=== PATIENT | female | born 1935 | race Hispanic/Latino ===

== ENCOUNTER 2016-09-20 17:49 | Inpatient (IN) | payer MEDICARE, BC ==
--- NOTE | 2016-09-20 18:31 | ED PDOC ---
Arrival/HPI - General Chief Complaint: Weakness/Neurological Deficit Time Seen by Provider: 09/20/16 18:10 Historian: Patient - History of Present Illness Narrative History of Present Illness (Text): 09/20/16 18:15 A 81 year old female, whose past medical history includes CVA, presents to the emergency department complaining of slurred speech since this morning. Patient notes she has some weakness to her right lower extremity but notes recent surgery to it. Patient also complaints of left elbow pain. She states she almost fell at home and has blurry vision but denies any chest pain, shortness of breath, headache, fever, abdominal pain, or any other complaints at this time. PMD: Dr. Jiménez Time/Duration: Other (12-18 hours) Symptom Onset: Sudden Symptom Course: Unchanged Quality: Other Activities at Onset: Rest Context: Home Past Medical History - Provider Review Nursing Documentation Reviewed: Yes - Infectious Disease Hx of Infectious Diseases: None - Tetanus Immunization Tetanus Immunization: Unknown - Reproductive Menopause: Yes - Cardiac Hx Hypertension: Yes - Pulmonary Hx Chronic Obstructive Pulmonary Disease (COPD): Yes - Neurological HX Cerebrovascular Accident: Yes (L CVA, with R foot drop) Other/Comment: Rt side weakness - HEENT Hx HEENT Disorder: Yes Hx Blind: (right eye visual impairment) - Renal Hx Renal Disorder: No - Endocrine/Metabolic Hx Endocrine Disorders: No - Hematological/Oncological Hx Blood Disorders: Yes Hx Cancer: Yes (right lung ca) Hx Chemotherapy: Yes - Integumentary Hx Dermatological Disorder: No - Musculoskeletal/Rheumatological Hx Falls: Yes - Gastrointestinal Hx Gastrointestinal Disorders: Yes - Genitourinary/Gynecological Hx Reproductive Disorders: No - Psychiatric Hx Psychophysiologic Disorder: Yes Hx Anxiety: Yes Hx Depression: Yes Hx Substance Use: No - Past Surgical History Past Surgical History: Non-Contributing - Surgical History Hx Appendectomy: Yes Hx Cardiac Catheterization: Yes Hx Cholecystectomy: Yes Hx Coronary Stent: Yes (x 4) Hx Joint Replacement: Yes (right knee) Hx Orthopedic Surgery: Yes (left ankle) - Anesthesia Hx Anesthesia: Yes Hx Anesthesia Reactions: No Hx Malignant Hyperthermia: No - Suicidal Assessment Feels Threatened In Home Enviroment: No Family/Social History - Physician Review Nursing Documentation Reviewed: Yes Family/Social History: Unknown Family HX Smoking Status: Never Smoked Hx Alcohol Use: No Hx Substance Use: No Hx Substance Use Treatment: No Allergies/Home Meds Allergies/Adverse Reactions: Allergies No Known Allergies Allergy (Verified 09/20/16 18:02) Home Medications: Home Meds Medication Instructions Recorded Confirmed Tiotropium [Spiriva] 18 mcg IH DAILY 10/30/15 09/20/16 Folic Acid [Folic Acid] 1 mg PO DAILY 09/20/16 09/20/16 Metoprolol Tartrate [Lopressor] 25 mg PO BID 09/20/16 09/20/16 Review of Systems - Physician Review All systems were reviewed & negative as marked: Yes - Review of Systems Constitutional: absent: Fevers Eyes: Vision Changes Respiratory: absent: SOB Cardiovascular: absent: Chest Pain Gastrointestinal: absent: Abdominal Pain, Nausea, Vomiting Musculoskeletal: Other (right lower extremity weakness; left elbow pain) Neurological: Speech Changes Physical Exam Vital Signs Reviewed: Yes Vital Signs Temp Pulse Resp BP Pulse Ox 09/20/16 19:34 98.2 F 60 16 103/64 98 09/20/16 17:54 97.2 F L 66 18 124/74 96 Temperature: Afebrile Blood Pressure: Normal Pulse: Regular Respiratory Rate: Normal Appearance: Positive for: Well-Appearing, Non-Toxic, Comfortable Pain Distress: None Mental Status: Positive for: Alert and Oriented X 3 Finger Stick Blood Glucose: 94 Medical Decision Making ED Course and Treatment: 09/20/16 18:15 Impression: A 81 year old female with slurred speech and blurred vision. Differential Diagnosis include but are not limited to: CVA vs TIA vs electrolyte abnormality. Plan: -- Head CT -- Chest X-ray -- Labs -- Urinalysis -- Reassess and disposition Prior Visits: Notes and results from previous visits were reviewed. The patient last presented to the emergency department on 06/09/16 for evaluation after a mechanical fall. Progress Notes: 09/20/16 19:[address]: Dictated and Authenticated by: Henok Haines MD COMPARISON: CT - HEAD W/O (CODE STROKE) 05/07/2016 12:18:51 PM FINDINGS: Brain: Moderate volume loss is seen in keeping with age. Severe decrease in attenuation of the periventricular white matter likely related to small vessel ischemic change. The brain is otherwise unremarkable. Normal mckeon-white matter differentiation is present, without acute hemorrhage, or mass. Ventricles: Unremarkable. No ventriculomegaly. 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 No acute fracture. Soft tissues: Unremarkable. Sinuses: Unremarkable as visualized. No acute sinusitis. Mastoid air cells: Unremarkable as visualized. No mastoid effusion. IMPRESSION: Age-related marked atrophy and chronic white matter ischemic changes , with no evidence of an acute intracranial abnormality. 09/20/16 20:07 Patient with noted history. Slurred speech and RLE weakness are present on exam. Symptoms are at least 12 hours old and out of the tpa time window; she is therefore not a tpa candidate. CT brain with no acute findings. NIHSS is 3 ; will need further workup and evaluation and treatment. Discussed with Dr. Hudson for admission on his service for acute cva. Patient given aspirin. - Lab Interpretations Lab Results: 09/20/16 18:20 09/20/16 18:20 Lab Results 09/20/16 18:30: Urine Color Yellow, Urine Appearance Clear, Urine pH 6.0, Ur Specific [place] 1.020, Urine Protein Negative, Urine Glucose (UA) Negative, Urine Ketones Negative, Urine Blood Negative, Urine Nitrate Negative, Urine Bilirubin Negative, Urine Urobilinogen 0.2, Ur Leukocyte Esterase Negative 09/20/16 18:20: Sodium 141, Potassium 3.8, Chloride 109 H, Carbon Dioxide 24, Anion Gap 12, BUN 12, Creatinine 0.8, Est GFR ( Amer) > 60, Est GFR (Non- Af Amer) > 60, Random Glucose 90, Calcium 9.1, Magnesium 1.9, Total Bilirubin 0.2, AST 37, ALT 31, Alkaline Phosphatase 122, Lactate Dehydrogenase 462, Total Creatine Kinase 93, Troponin I < 0.01, NT-Pro-B Natriuret Pep 553 H, Total Protein 6.4, Albumin 3.6, Globulin 2.8, Albumin/Globulin Ratio 1.3, Triglycerides 133, Cholesterol 165, LDL Cholesterol Direct 84, HDL Cholesterol 49, Lipase 42 09/20/16 18:20: PT 10.7, INR 0.99, APTT 26.8 09/20/16 18:20: WBC 6.1 D, RBC 3.77, Hgb 11.5 L, Hct 36.2, MCV 96.0, MCH 30.5, MCHC 31.8, RDW 16.6 H, Plt Count 246, MPV 11.0, Gran % 43.2 L, Lymph % (Auto) 38.6 H, [place] % (Auto) 10.8 H, Eos % (Auto) 6.6 H, Baso % (Auto) 0.8, Gran # 2.63 , Lymph # 2.4, [place] # 0.7 H, Eos # 0.4, Baso # 0.05 I have reviewed the lab results: Yes - RAD Interpretation Narrative RAD Interpretations (Text): 09/20/16 20:11 CXR: nad as read by me. Radiology Orders: 09/20/16 18:28 CHEST PORTABLE [RAD] Stat 09/20/16 18:29 HEAD W/O CONTRAST [CT] Stat - EKG Interpretation EKG Interpretation (Text): 09/20/16 20:10 NSR @ 66 with RBBB with OH of 286; no ST/T changes; normal axis; poor R wave progression; no changes Interpreted by ED Physician: Yes Type: 12 lead EKG Comparison: Similar to previous EKG (06/09/16) - Medication Orders Current Medication Orders: Discontinued Medications Aspirin (Aspirin Chewable) 324 mg PO STAT STA Stop: 09/20/16 19:19 NIHSS Scale ([place]) Time Performed: 18:15 - How Severe is the Stoke Baseline Level of Consciousness: 0=Alert LOC to Questions: 0=Both comments correct LOC to commands: 0=Obeys both correctly Best Gaze: 0=Normal Visual: 0=No visual loss Facial: 0=Normal Motor Arm - Left: 0=No drift Motor Arm - Right: 0=No drift Motor Leg - Left: 0=No drift Motor Leg - Right: 2=Falls before 5 sec Limb Ataxia: 0=Absent Sensory: 0=Normal Best Language: 0=No aphasia Dysarthia: 1=Mild to moderate slurring Extinction & Inattention (Neglect): 0=Normal, no object Score: 3 Risk Level: Minor Stroke Risk - Scribe Statement The provider has reviewed the documentation as recorded by the Cindi Giordano Provider Scribe Attestation: All medical record entries made by the Scribe were at my direction and personally dictated by me. I have reviewed the chart and agree that the record accurately reflects my personal performance of the history, physical exam, medical decision making, and the department course for this patient. I have also personally directed, reviewed, and agree with the discharge instructions and disposition. Disposition/Present on Arrival - Present on Arrival Any Indicators Present on Arrival: No History of DVT/PE: No History of Uncontrolled Diabetes: No Urinary Catheter: No History of Decub. Ulcer: No History Surgical Site Infection Following: None - Disposition Have Diagnosis and Disposition been Completed?: Yes Diagnosis: Cerebrovascular accident (CVA) Disposition: HOSPITALIZED Disposition Time: 19:25 Patient Plan: Observation, Telemetry Condition: FAIR
[2016-09-20 18:43] LABS: ADD MANUAL DIFF? NO
[2016-09-20 18:54] LABS: BASO # 0.05 K/mm3 (0.0-2.0); BASO % 0.8 % (0.0-3.0); EOS # 0.4 (0.0-0.7); EOS % 6.6 % (1.5-5.0); GRAN # 2.63 (1.4-6.5); GRAN % 43.2 % (50.0-68.0); HEMATOCRIT 36.2 % (36.0-48.0); LYMPH # 2.4 (1.2-3.4); LYMPH % 38.6 % (22.0-35.0); MEAN CORPUSCULAR HEMOGLOBIN 30.5 pg (25.0-35.0); MEAN CORPUSCULAR HGB CONC 31.8 g/dl (31.0-37.0); MONO # 0.7 (0.1-0.6); MONO % 10.8 % (1.0-6.0); PLATELET COUNT 246 10^3/uL (120.0-450.0); RED CELL DISTRIBUTION WIDTH 16.6 % (11.5-14.5); WHITE BLOOD COUNT 6.1 10^3/ul (4.5-11.0)
[2016-09-20 19:00] LABS: INR 0.99 (0.93-1.08); PARTIAL THROMBOPLASTIN TIME 26.8 Seconds (23.7-30.8)
[2016-09-20 19:02] LABS: ALB/GLOB RATIO 1.3 (1.1-1.8); ALKALINE PHOSPHATASE 122 U/L (38-133); ALT/SGPT 31 U/L (7-56); AST/SGOT 37 U/L (15-39); BILIRUBIN,TOTAL 0.2 mg/dL (0.2-1.3); BLOOD UREA NITROGEN 12 mg/dL (7-21); CALCIUM 9.1 mg/dL (8.4-10.5); CARBON DIOXIDE 24 mmol/L (21-33); CHLORIDE 109 mmol/L (98-107); CHOLESTEROL 165 mg/dL (130-200); GFR AFRICAN-AMERICAN > 60; GLUCOSE,RANDOM 90 mg/dL (70-110); LIPASE 42 U/L (23-300); MAGNESIUM 1.9 mg/dL (1.7-2.2); POTASSIUM 3.8 mmol/L (3.6-5.0); SODIUM 141 mmol/L (132-148); TOTAL PROTEIN 6.4 g/dL (5.8-8.3)
[2016-09-20 19:03] LABS: URINE BILIRUBIN NEGATIVE (NEGATIVE); URINE BLOOD NEGATIVE (NEGATIVE); URINE GLUCOSE (UA) NEGATIVE (NEGATIVE); URINE KETONE NEGATIVE (NEGATIVE); URINE LEUKOCYTE ESTERASE NEGATIVE Leu/uL (NEGATIVE); URINE PROTEIN NEGATIVE mg/dL (<30 mg/dL); URINE UROBILINOGEN 0.2 E.U./dL (<1 E.U./dL)
[2016-09-20 19:09] LABS: URINE APPEARANCE CLEAR (CLEAR); URINE COLOR YELLOW (YELLOW)
[2016-09-20 19:18] LABS: TROPONIN I < 0.01 ng/mL
--- NOTE | 2016-09-21 07:21 | CT ---
PROCEDURE: CT HEAD WITHOUT CONTRAST. HISTORY: slurred speech, blurry vision COMPARISON: None available. TECHNIQUE: Axial computed tomography images were obtained through the head/brain without intravenous contrast. Radiation dose: Total exam DLP = mGy-cm. This CT exam was performed using one or more of the following dose reduction techniques: Automated exposure control, adjustment of the mA and/or kV according to patient size, and/or use of iterative reconstruction technique. FINDINGS: HEMORRHAGE: No intracranial hemorrhage. BRAIN: No mass effect or edema. No atrophy or chronic microvascular ischemic changes. VENTRICLES: Unremarkable. No hydrocephalus. CALVARIUM: Unremarkable. PARANASAL SINUSES: Unremarkable as visualized. No significant inflammatory changes. MASTOID AIR CELLS: Unremarkable as visualized. No inflammatory changes. OTHER FINDINGS: None. IMPRESSION: Normal CT of the Head.
--- NOTE | 2016-09-21 10:27 | RAD ---
HISTORY: weakness COMPARISON: 06/09/2016 FINDINGS: LUNGS: No active pulmonary disease. PLEURA: No significant pleural effusion identified, no pneumothorax apparent. CARDIOVASCULAR: Normal. OSSEOUS STRUCTURES: No significant abnormalities. VISUALIZED UPPER ABDOMEN: Normal. OTHER FINDINGS: Mild aortic tortuosity IMPRESSION: No active disease.
[2016-09-21] MEDS: Tiotropium 18 mcg Cap For Inhalation IH SCH (10:31)
--- NOTE | 2016-09-21 10:55 | CARD ---
APPROVED REPORT EKG Measurement Heart [id number] <Conclusion> Sinus rhythm with 1st degree AV block Right bundle branch block LAD Low voltage lateral precordial leads
--- NOTE | 2016-09-21 15:00 | HP ---
An 81-year-old white female with history of right hip and knee replacement, history of degenerative a rthritis, hypertension, anxiety disorder. The patient admitted through the ER with slurred speech an d right upper extremity weakness. CT was negative. The patient was admitted, placed on Plavix. The patient had a neurological consultation and neuro checks overnight. She will have an MRI in the [facility]. PHYSICAL EXAMINATION: GENERAL: Shows a well-developed, well-nourished white female. There is less slurred speech this [facility]. EXTREMITIES: Her strength in the upper and lower extremities are equal. Babinskis is downgoing bila terally. NECK: There are no carotid bruits noted. HEENT: The patient does have impaired right gaze on examination of the extraocular muscles. There i s no facial asymmetry. VITAL SIGNS: Stable. Blood pressure is 141/70, heart rate is 61, temperature is 98. LABORATORY DATA: Unremarkable. IMPRESSION: An 81-year-old white female presenting with slurred speech and right upper extremity wea kness, right lower extremity weakness. Negative CT, rule out cerebrovascular accident, MRI pending. Physical therapy. Isauro Hudson MD cc: [id number] TT: 09/21/2016 14:59:20 en
[2016-09-21] MEDS ORDERED: Benzocaine/Menthol (Cepacol) Lozenge MT PRN (15:51)
[2016-09-21] MEDS ORDERED: Gadodiamide 287 MG/ML VIAL (20ML) IV ONE (17:33)
--- NOTE | 2016-09-21 20:35 | CON ---
DATE: 09/21/2016 This is an 81-year-old white female with past medical history of stroke and came to the Emergency [facility] with slurred speech and has some right-sided weakness. Also, complaining of left elbow pain. The patient almost fell at home, had blurring of vision, shortness of breath and came to the Emergency Ro om. CAT scan of the head was done, which was reported negative. The patient just had an MRI of the head. PAST MEDICAL HISTORY: As above, has high blood pressure, COPD, history of cerebrovascular accident, left CVA with right foot drop. ALLERGIES: No known drug allergies. HOME MEDICATIONS: Folic acid, Spiriva, Lopressor. REVIEW OF SYSTEMS: A 10-point review of system was negative except as noted above. PHYSICAL EXAMINATION: VITAL SIGNS: Blood pressure 124/74. HEENT: Normocephalic, atraumatic. NECK: Supple. NEUROLOGIC: Awake, oriented to self and place. Cranial nerves II-XII were tested. Pupils reactive. EOM intact. Visual castellanos full. No facial asymmetry. Tongue midline. Motor: Moves all the extr emities spontaneously. Deep tendon reflexes 1+. Both plantars are downgoing. Sensory appears intac t. Cerebellar and gait deferred. IMPRESSION: An 81-year-old female with slurred speech and blurring of vision and residual weakness o f the right side from a previous stroke. CAT scan and MRI done, results pending. LABORATORY DATA: WBC 6.1, hemoglobin 11.5, hematocrit 36.2, platelets 246. Sodium 141, potassium 3. 8, chloride 109, CO2 of 24, glucose 90, BUN 12, creatinine 0.8. Workup is in progress. We will foll ow up. Paul Barrett MD cc: [id number] TT: 09/21/2016 20:34:02 Confirmation # [id number] Dictation # [id number] mn
--- NOTE | 2016-09-22 01:58 | CP.PCM.PN ---
Subjective - Date & Time of Evaluation Date of Evaluation: 09/22/16 Time of Evaluation: 01:44 - Subjective Subjective: Patient was seen at bedside because she complained of burning in the lips for past two hours, began after she ate an orange. Has no other complaints now. No headache, dizziness, weakness, numbness. ROS :Neg except as above. Medical record was reviewed. This 81 year old white woman was admitted with slurred speech and right sided residual weakness from previous stroke, blurred vision. Has PMH of HTN,DJD, anxiety, right knee and hip replacement. Objective - Vital Signs/Intake and Output Vital Signs (last 24 hours): Temp Pulse Resp BP Pulse Ox 97.6 F 67 19 167/78 H 97 09/21/16 12:00 09/21/16 18:29 09/21/16 12:00 09/21/16 18:29 09/21/16 06:00 - Medications Medications: Current Medications Acetaminophen (Tylenol 325mg Tab) 650 mg PO Q4H PRN PRN Reason: Pain, Mild (1-3) Last Admin: 09/21/16 16:27 Dose: 650 mg Atorvastatin Calcium (Lipitor) 10 mg PO DIN [facility] Last Admin: 09/21/16 18:29 Dose: 10 mg Benzocaine/Menthol (Cepacol Sore Throat) 1 diann MT Q2H PRN PRN Reason: Sore Throat Donepezil HCl (Aricept) 5 mg PO HS [facility] Last Admin: 09/21/16 21:44 Dose: 5 mg Famotidine (Pepcid) 20 mg PO DAILY [facility] Last Admin: 09/21/16 10:31 Dose: 20 mg Folic Acid (Folic Acid) 1 mg PO DAILY [facility] Last Admin: 09/21/16 10:31 Dose: 1 mg Metoprolol Tartrate (Lopressor) 25 mg PO BRKDIN [facility] Last Admin: 09/21/16 18:29 Dose: 25 mg Tiotropium [place] (Spiriva) 18 mcg IH DAILY [facility] Last Admin: 09/21/16 10:31 Dose: 18 mcg - Labs Labs: PT 10.7 Seconds (9.9-11.8) 09/20/16 18:20 INR 0.99 (0.93-1.08) 09/20/16 18:20 APTT 26.8 Seconds (23.7-30.8) 09/20/16 18:20 - Constitutional Appears: Well, No Acute Distress - Head Exam Head Exam: ATRAUMATIC, NORMAL INSPECTION, NORMOCEPHALIC Additional comments: Obese person. - Eye Exam Eye Exam: Normal appearance - ENT Exam ENT Exam: Normal External Ear Exam Additional comments: Upper and lower lip examination is normal. No swelling , no redness, no tenderness. - Neck Exam Neck Exam: Normal Inspection - Respiratory Exam Respiratory Exam: NORMAL BREATHING PATTERN - Cardiovascular Exam Cardiovascular Exam: absent: JVD - GI/Abdominal Exam GI & Abdominal Exam: absent: Distended - Rectal Exam Rectal Exam: Deferred - Back Exam Back Exam: NORMAL INSPECTION - Neurological Exam Neurological Exam: Alert, Awake, CN II-XII Intact, Oriented x3 Neuro motor strength exam: Left Upper Extremity: 5, Right Upper Extremity: 5, Left Lower Extremity: 5, Right Lower Extremity: 5 - Psychiatric Exam Psychiatric exam: Normal Affect, Normal Mood - Skin Skin Exam: Normal Color Assessment and Plan - Assessment and Plan (Free Text) Assessment: Burning in lips. TIA. History CVA with right sided weakness. HTN. DJD. Anxiety. Obesity. History right hip and knee replacement. Plan: Benadryl 25 mg PO x 1. Continue present management.
--- NOTE | 2016-09-22 09:30 | MRI ---
PROCEDURE: MRI BRAIN WITH AND WITHOUT CONTRAST HISTORY: Slurred speech COMPARISON: Noncontrast head CT from 09/20/2016 TECHNIQUE: Multiplanar, multisequence MR images of the brain were obtained with and without intravenous contrast enhancement. FINDINGS: HEMORRHAGE: None DWI: No evidence of an acute or early subacute infarction. BRAIN PARENCHYMA: There are severe chronic microangiopathic changes. There is no mass, mass effect or abnormal extra-axial fluid collection. The midline sagittal structures are normal. ENHANCEMENT: No abnormal intracranial enhancement. VENTRICLES: There is mild age-related global parenchymal volume loss and proportionate enlargement of the ventricles and cortical sulci. CRANIUM: There is normal bone marrow signal pattern. ORBITS: Grossly unremarkable. PARANASAL SINUSES/MASTOIDS: Moderate mucosal thickening in the right posterior ethmoid air cell, otherwise predominantly clear. VASCULAR SYSTEM: Normal signal voids in the larger intracranial arteries. OTHER FINDINGS: None . IMPRESSION: No acute intracranial abnormality. Specifically, no evidence of acute infarction.
[2016-09-22] MEDS: Tiotropium 18 mcg Cap For Inhalation IH SCH (10:03)
--- NOTE | 2016-09-22 10:24 | PN ---
DATE: 09/22/2016 An 81-year-old white female admitted to the hospital with slurred speech and right hemiparesis. The patient had a positive MRI with a positive stroke seen on MRI. The patient is doing well. Her slurr ed speech is improved. Her right leg is still somewhat weak. She needs some physical therapy and oc cupational therapy. Has started speech therapy and occupational therapy. She will be transferred to a rehab facility as soon as a bed is available, the patient will continue stroke protocol with a sta tin, Plavix, and blood pressure control. PHYSICAL EXAMINATION NEUROLOGIC: Grossly improved today. The patient does need to work on her balance and strength in he r lower extremities. Her speech is improved. VITAL SIGNS: Stable. PLAN: Proceed to rehab as soon as possible. Isauro Hudson MD cc: [id number] TT: 09/22/2016 10:23:59 Confirmation # [id number] Dictation # [id number] lotus
--- NOTE | 2016-09-22 12:59 | PN ---
DATE: 09/22/2016 SUBJECTIVE: This is an 81-year-old white female with past medical history of hypertension, COPD and left CVA with right foot drop. PHYSICAL EXAMINATION: HEENT: Normocephalic, atraumatic. NECK: Supple. NEUROLOGIC: Cranial nerves II through XII were tested. Pupils reactive. Moves all the extremities equally. Deep tendon reflexes are 1+. Both plantars are downgoing. IMPRESSION: An 81-year-old with slurred speech and residual weakness of the right arm. MRI was negat racheal. PLAN: Continue present management. We will follow up. Paul Barrett MD cc: [id number] TT: 09/22/2016 12:58:31 Confirmation # [id number] Dictation # [id number] lotus
--- NOTE | 2016-09-23 07:15 | PQF CVATIA ---
This form is a permanent part of the medical record Dr. Hudson, Patient admitted with slurred speech and right hemiparesis. Both CT head and MRI brain negative for acute infarction or hemorrhage. Please document if CVA was ruled out as a cause of symptoms, other cause? Clarification of your documentation is requested to better reflect the severity of illness and intensity of treatment of your patient. Indicators present: [] Altered mental status [x] Aphasia/slurred speech [] Dysphagia [] Dysphasia [] Facial droop/numbness [] Gait disturbance [x] Hemiparesis/plegia [] Speech impairment [x] Weakness [] Neuro Consult [] CT/MRI Findings [] Other: [] Location in the medical record that reflects the above clinical findings: [] Treatment Provided: [] PHYSICIAN'S RESPONSE Based on your medical judgment of the clinical indicators outlined above, are you treating this patient for a known or suspected: [x] Acute Cerebrovascular Accident (CVA) Please specify type i.e.; embolic, hemorrhagic, ischemic. Please specify the artery involved if known. [] Transient Ischemic Accident (TIA) [x] Prolonged reversible ischemic neurological disorder [] Other, please indicate: [] [] If unable to determine, please check the box, sign and date. Present On Admission (POA) Indicator: [x] Present at the time of admission [] Not present at the time of admission [] Clinically Undetermined In responding to this query, please exercise your independent professional judgment. The fact that a question is asked does not imply that any particular answer is desired or expected. Thank you for your clarification on this documentation. If you have any questions please call:[ ] * Thank you, [ ]Jeniffer [facility] #[id number] strainer cleaner CRISTA
--- NOTE | 2016-09-23 08:52 | PN ---
DATE: 09/23/2016 An 81-year-old white female admitted to the hospital with slurred speech and right hemiparesis. Foun d to have a CVA on MRI. The patient's slurred speech is improved. Her extremities still are weak, b ut she does have a replaced knee and hip on the right side. The patient is doing physical therapy an d occupational therapy. PHYSICAL EXAMINATION: She is awake, alert and oriented x 3. REVIEW OF SYSTEMS: 12-point review of systems is unremarkable. The patient is scheduled to eventually go to [facility] to finish her rehabilitation. Isauro Hudson MD cc: [id number] TT: 09/23/2016 08:51:54 Confirmation # [id number] Dictation # [id number] mn
[2016-09-23] MEDS: Tiotropium 18 mcg Cap For Inhalation IH SCH (10:07)
--- NOTE | 2016-09-23 12:38 | PN ---
DATE: 09/23/2016 CHIEF COMPLAINT: Follow up for generalized weakness. SUBJECTIVE: The patient is sitting up in bed, in no acute distress. She has a residual right-sided weakness from prior CVA as well as a right footdrop. MRI of the brain showed no acute intracranial a bnormalities. Electrolytes are stabilized. Her blood pressures are well controlled at this point. She is currently on aspirin 81 mg for stroke prevention. She is on Aricept for underlying cognitive impairment. She will be going for physical therapy, likely subacute rehab. 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 SOCIAL HISTORY: No illicit drug use, smoking, or ETOH abuse. CURRENT MEDICATIONS: Reviewed via nurse's reconciliation sheet. ALLERGIES: No known drug allergies. FAMILY HISTORY: Noncontributory. REVIEW OF SYSTEMS: A 14-point review of systems is negative except for the HPI. LABORATORIES: No new labs done today. A1c is 5.6. MRI of the brain was negative for any acute intracranial abnormality. PHYSICAL EXAMINATION: GENERAL: The patient is alert. HEENT: Atraumatic, normocephalic. PERRLA. Extraocular muscles are intact. NECK: Supple, no JVD, no adenopathy noted. LUNGS: Clear to auscultation. No adventitious sounds. HEART: S1, S2, normal rate and rhythm. No murmurs, rubs, or gallops. ABDOMEN: Soft, nontender, nondistended. Bowel sounds are present. EXTREMITIES: No clubbing, no cyanosis. Peripheral pulses 2+ felt bilaterally. NEUROLOGIC: The patient is alert, oriented to person, place, month and year. She has residual dysar thria from prior CVA. MOTOR: Has residual right-sided weakness from prior CVA and a right footdrop. Left side is intact. REFLEXES: DTRs are 1+ throughout and absent at the ankles. SENSORY: Light touch, pinprick, proprioception and vibration intact. COORDINATION: [id number] intact. Toes are downgoing bilaterally. GAIT: Deferred for now. ASSESSMENT AND PLAN: This is an 81-year-old woman with history of chronic obstructive pulmonary dise ase; history of cognitive impairment, on Aricept; history of hypertension, left cerebrovascular accid ent with residual right-sided weakness and has a right footdrop who came in for generalized weakness and questionable worsening weakness of her right side. MRI of the brain showed no acute intracranial abnormalities. At this time, she will benefit from subacute rehab for physical and occupational the rapy and likely had a transient ischemic event and now is back to baseline, and will need physical th erapy and subacute rehab. Continue with aspirin 81 mg for stroke prevention. She is clinically stab le from our standpoint. Thank you. Will sign off. Lance Barrett MD cc: [id number] TT: 09/23/2016 12:37:36 Confirmation # [id number] Dictation # [id number] mn
[2016-09-24 04:37] LABS: URINE BILIRUBIN NEGATIVE (NEGATIVE); URINE BLOOD NEGATIVE (NEGATIVE); URINE GLUCOSE (UA) NEGATIVE (NEGATIVE); URINE KETONE NEGATIVE (NEGATIVE); URINE LEUKOCYTE ESTERASE SMALL Leu/uL (NEGATIVE); URINE PROTEIN NEGATIVE mg/dL (<30 mg/dL); URINE UROBILINOGEN 0.2 E.U./dL (<1 E.U./dL)
[2016-09-24 04:51] LABS: URINE APPEARANCE SL CLOUDY (CLEAR); URINE COLOR YELLOW (YELLOW)
[2016-09-24 04:53] LABS: URINE RBC 0 - 2 /hpf (0-2)
[2016-09-24 04:54] LABS: URINE BACTERIA MANY (NEG)
[2016-09-24 09:05] VITALS: RESP 18
[2016-09-24] MEDS: Enoxaparin 40 mg Syringe SC SCH (10:39)
[2016-09-24] MEDS: Tiotropium 18 mcg Cap For Inhalation IH SCH (10:40)
[2016-09-24] MEDS: oxyCODONE 10 mg Immediate Release Tab PO PRN ×2 (11:10→17:43)
--- NOTE | 2016-09-24 12:39 | RAD ---
PROCEDURE: Radiographs of the Left Shoulder HISTORY: PAIN COMPARISON: No prior. FINDINGS: BONES: Normal. No fracture. JOINTS: Normal. Glenohumeral and acromioclavicular joints preserved. No osteoarthritis. SOFT TISSUES: Normal. OTHER FINDINGS: None. IMPRESSION: Normal radiographs of the left shoulder.
[2016-09-24 18:13] VITALS: TEMP 97.8
--- NOTE | 2016-09-25 00:49 | CP.PCM.PN ---
Subjective - Date & Time of Evaluation Date of Evaluation: 09/24/16 Time of Evaluation: 09:00 - Subjective Subjective: Complaining of left shoulder pain. Slurring of speech. She was admitted with right sided weakness and slurring speech. Not able to ambulate. Objective - Vital Signs/Intake and Output Vital Signs (last 24 hours): Temp Pulse Resp BP Pulse Ox 97.8 F 67 18 127/62 93 L 09/24/16 16:00 09/24/16 17:50 09/24/16 17:50 09/24/16 17:50 09/24/16 18:25 Intake and Output: 09/24/16 09/25/16 18:59 06:59 Output Total 40 Balance -40 - Medications Medications: Current Medications Acetaminophen (Tylenol 325mg Tab) 650 mg PO Q4H PRN PRN Reason: Pain, Mild (1-3) Last Admin: 09/24/16 08:06 Dose: 650 mg Aspirin (Aspirin Chewable) 81 mg PO DAILY [facility] Last Admin: 09/24/16 10:37 Dose: 81 mg Atorvastatin Calcium (Lipitor) 10 mg PO DIN [facility] Last Admin: 09/24/16 17:40 Dose: 10 mg Benzocaine/Menthol (Cepacol Sore Throat) 1 diann MT Q2H PRN PRN Reason: Sore Throat Last Admin: 09/22/16 21:24 Dose: 1 diann Clonidine HCl (Catapres) 0.1 mg PO BID PRN PRN Reason: htn Last Admin: 09/24/16 12:48 Dose: 0.1 mg Docusate Sodium (Colace) 100 mg PO BID [facility] Last Admin: 09/24/16 17:32 Dose: Not Given Donepezil HCl (Aricept) 5 mg PO HS [facility] Last Admin: 09/24/16 21:35 Dose: 5 mg Enoxaparin Sodium (Lovenox) 40 mg SC DAILY [facility] PRN Reason: Protocol Last Admin: 09/24/16 10:39 Dose: 40 mg Famotidine (Pepcid) 20 mg PO DAILY [facility] Last Admin: 09/24/16 10:40 Dose: 20 mg Folic Acid (Folic Acid) 1 mg PO DAILY [facility] Last Admin: 09/24/16 10:39 Dose: 1 mg Metoprolol Tartrate (Lopressor) 25 mg PO BRKDIN [facility] Last Admin: 09/24/16 17:45 Dose: 25 mg Oxycodone HCl (Oxycodone Immediate Release Tab) 10 mg PO Q6H PRN PRN Reason: Pain, moderate (4-7) Last Admin: 09/24/16 17:43 Dose: 10 mg Tiotropium [place] (Spiriva) 18 mcg IH DAILY [facility] Last Admin: 09/24/16 10:40 Dose: 18 mcg - Labs Labs: PT 10.7 Seconds (9.9-11.8) 09/20/16 18:20 INR 0.99 (0.93-1.08) 09/20/16 18:20 APTT 26.8 Seconds (23.7-30.8) 09/20/16 18:20 - Constitutional Appears: Chronically Ill - Head Exam Head Exam: ATRAUMATIC, NORMAL INSPECTION, NORMOCEPHALIC - Eye Exam Eye Exam: absent: Conjunctival injection, EOMI, Normal appearance, Nystagmus, Periorbital swelling, Periorbital tenderness, PERRL, Scleral icterus - ENT Exam ENT Exam: absent: Mucous Membranes Dry, Mucous Membranes Moist, Normal Exam, Normal External Ear Exam, Normal Oropharynx, TM's Normal Bilaterally - Neck Exam Neck Exam: absent: Full ROM, Lymphadenopathy, Meningismus, Normal Inspection, Tenderness, Thyromegaly - Respiratory Exam Respiratory Exam: absent: Accessory Muscle Use, Chest Wall Tenderness, Decreased Breath Sounds, Clear to Ausculation Bilateral, Prolonged Expiratory Phase, Rales, Rhonchi, Wheezes, Respiratory Distress, Stridor, NORMAL BREATHING PATTERN - Cardiovascular Exam Cardiovascular Exam: absent: Bradycardia, Tachycardia, Clicks, Diastolic murmur , Gallop, Irregular Rhythm, REGULAR RHYTHM, JVD, RRR, Rubs, +S1, +S2, +S4, Murmur - GI/Abdominal Exam GI & Abdominal Exam: Soft, Normal Bowel Sounds - Extremities Exam Extremities Exam: Normal Inspection - Neurological Exam Neurological Exam: Oriented x3 - Skin Skin Exam: Intact, Normal Color, Warm Assessment and Plan - Assessment and Plan (Free Text) Assessment: 1. Right CVA. Slurring speech. neuro evaluated. CT head , MRI brain no acute changes. On aspirin, plavix. 2. Anemia : mild anemia. Hb/Hct stable. 3. left shoulder pain. Oxycodone 10 mg Q 6 hr prn. ortho consult for possible steroid injection. 4. Rehab placement. discussed with the skilled nursing case manager, staff nurse.
[2016-09-25] MEDS ORDERED: Bupivacaine 0.5% Inj(30mL) IJ ONE (08:51)
[2016-09-25] MEDS ORDERED: MethylPREDNISolone Depo 40 mg/ml Inj IM ONE (08:51)
[2016-09-25 09:59] VITALS: BP 133/59; O2SAT 100
--- NOTE | 2016-09-25 10:52 | CON ---
DATE: 09/25/2016 This is an 81-year-old female in room 376, bed 1. She was seen for a complaint of shoulder pain that occurred yesterday. Range of motion is satisfacto ry with good abduction, good rotation. X-rays do show mild signs of subacromial impingement and mild osteoarthritis with a spur of the humeral head, and no significant AC joint arthritis. She had been admitted to the hospital on 09/22/2016 and had a lot of x-rays done, and I think with the motion, th e pain in her shoulder could be coming from the sliding back and forth on the bed to the stretcher to the x-ray tables. But today, which is 09/25/2016, she does not have an ounce of pain in the left sh oulder and good range of motion. So I told her with a combination of mild bursitis on x-ray and mild arthritis and the motion that she did for the x-rays that is appears though she inflamed her left sh oulder bursa, as it does not appear to be a rotator cuff tear and the symptoms of the pain subsided w ith rest in bed. She has not had an x-ray for a couple of days. So I feel as though she will do wel l with conservative therapy. will do some mild physical therapy and avoid a cortisone injection toda y, but I will see her tomorrow and see how she feels. FINAL DIAGNOSES: Mild bursitis, resolved, and osteoarthritis which may need followup if the pain con tinues, but right now there is no pain; it has resolved spontaneously. I will follow her in the hosp ital in case she does need a Depo-Medrol and Marcaine shot. Ramu Jj DO cc: [id number] TT: 09/25/2016 10:51:22 Confirmation # [id number] Dictation # [id number] alex
[2016-09-25] MEDS: Tiotropium 18 mcg Cap For Inhalation IH SCH (11:14)
[2016-09-25] MEDS: Enoxaparin 40 mg Syringe SC SCH (11:15)
[2016-09-25 11:16] VITALS: PULSE 16
[2016-09-25] MEDS ORDERED: cefTRIAXone 2 GM IN NS 2 GM/100 ML BAG IVPB SCH (13:15)
--- NOTE | 2016-09-25 16:29 | CP.PCM.PCO ---
Physician Communication Note - Physician Communication Note Physician Communication Note: D/C by Dr. Page on Macrobid, she will f/u [facility] in urine as outpatient.
== END 2016-09-25 16:19 | disposition home health service (06) | DRG 65 ==
LOC: ED 17:49 → ERH 19:29 → 2RNO 22:06 → OBSVTOIN 09-22 09:32 → 3RSO 09-23 17:19
PROVIDERS: ADMIT Internal Medicine; ATTEND Internal Medicine
DX: I63.9 Cerebral infarction, unspecified (principal); I69.351 Hemiplegia and hemiparesis following cerebral infarction affecting right dominant side; J44.9 Chronic obstructive pulmonary disease, unspecified; M21.371 Foot drop, right foot; R47.81 Slurred speech; R29.703 NIHSS score 3; I10 Essential (primary) hypertension; M75.52 Bursitis of left shoulder; D64.9 Anemia, unspecified; F41.9 Anxiety disorder, unspecified; M19.90 Unspecified osteoarthritis, unspecified site; Z96.641 Presence of right artificial hip joint; Z96.651 Presence of right artificial knee joint; E66.9 Obesity, unspecified; Z68.31 Body mass index [BMI] 31.0-31.9, adult

== ENCOUNTER 2017-03-20 00:52 | Inpatient (IN) | payer MEDICARE, BC ==
[2017-03-20 01:01] VITALS: BMI 30.9
--- NOTE | 2017-03-20 01:11 | EDPD ---
HPI Stroke - General Time Seen by Provider: 03/20/17 01:05 Chief Complaint: Weakness/Neurological Deficit Historian: Patient - History of Present Illness Narrative History of Present Illness (Free Text): 03/20/17 01:10 Lacy Hoff is an 81 year old, whose past medical history includes CVA , hypertension, COPD, CAD, and lung cancer, who presents to the Emergency department brought in by EMS for generalized weakness. Patient states she began experiencing head heaviness, heaviness to bilateral upper extremities, and clouded vision while at home prior to arrival. Patient notes she felt fine earlier in the day. Patient denies any dizziness, speech changes, fever, chills , chest pain, shortness of breath, nausea, vomiting, neck pain,or any other complaints. PMD: Dr. Hudson Date:: 03/20/17 Time: 01:10 Onset:: Just prior to presenting Timing: Currently Symptomatic Context: Home Associated Symptoms: Visual Exacerbated by: Nothing Relieved by: Nothing - Location Location: None rTPA Inclusion/Exclusion - Refusal of Treatment Patient Refused Treatment: No - Inclusion Criteria for Altepase Patient is 18 years or Older: Yes The Clinical Diagnosis of Ischemic Stroke That is Causing a Potentially Disabling Neurological Deficit: No Time of Onset is Well Established to be Less Than 270 Minute Before Treatment Would Begin: Yes Risk/Benefit Discussed With Patient/Family Member Present: Yes - Exclusion Criteria for Altepase Uncontrolled Hypertension at Time of Treatment (Systolic BP above 185 or Diastolic BP above 110 mmHg): No Active Internal Bleeding: No Known Bleeding Diathesis Including but Not Limited to: Platelets Below 100,000/ mm,PTT Above 40 sec After Heparin Use, Current Use of Oral Anitcoagulant With INR Greater Than 1.7 or PT Greater Than 15 secs: No Evidence of an Intracranial Hemorrhage: No Evidence of Major Acute Infarct With Signs Greater Than 1/3 MCA Territory: No Suspicion of Subarachnoid Hemorrhage on Pretreatment Evaluation Even if CT Head Negative For Hemorrhage: No - Warning to TPA With Conditions Following Conditions Weighed Against Anticipated Benefit: Yes Condition: Rapid Improvement Past Medical History - Provider Review Nursing Documentation Reviewed: Yes - Infectious Disease Hx of Infectious Diseases: None - Tetanus Immunization Tetanus Immunization: Unknown - Cardiac Hx Cardiac Disorders: Yes - Pulmonary Hx Chronic Obstructive Pulmonary Disease (COPD): Yes - Neurological HX Cerebrovascular Accident: Yes (R sided weakness, many years ago) - HEENT Hx HEENT Disorder: Yes Hx Blind: (right eye visual impairment) - Renal Hx Renal Disorder: No - Endocrine/Metabolic Hx Endocrine Disorders: No - Hematological/Oncological Hx Cancer: Yes (lung, with chemo therapy) - Integumentary Hx Dermatological Disorder: No - Musculoskeletal/Rheumatological Hx Falls: Yes - Gastrointestinal Hx Gastrointestinal Disorders: Yes - Genitourinary/Gynecological Hx Genitourinary Disorders: No - Psychiatric Hx Psychophysiologic Disorder: Yes Hx Anxiety: Yes Hx Depression: Yes Hx Substance Use: No - Past Surgical History Past Surgical History: Non-Contributing - Surgical History Hx Appendectomy: Yes Hx Cardiac Catheterization: Yes Hx Cholecystectomy: Yes Hx Coronary Stent: Yes (x 4) Hx Joint Replacement: Yes (right knee) Hx Orthopedic Surgery: Yes (left ankle) - Anesthesia Hx Anesthesia: Yes Hx Anesthesia Reactions: No Hx Malignant Hyperthermia: No - Suicidal Assessment Feels Threatened In Home Enviroment: No Family/Social History - Family/Social History Family History: Non-Contributory - DrNneka Review Nursing documentation reviewed.: Yes Allergies/Home Meds Allergies/Adverse Reactions: Allergies No Known Allergies Allergy (Verified 03/20/17 01:01) Home Medications: Home Meds Medication Instructions Recorded Confirmed Tiotropium [Spiriva] 18 mcg IH DAILY 10/30/15 03/20/17 Metoprolol Tartrate [Lopressor] 25 mg PO BID 09/20/16 03/20/17 Review of Systems - Physician Review All systems were reviewed & negative as marked: Yes - Review of Systems Constitutional: Other (+generalized weakness). absent: Fevers Eyes: Vision Changes ENT: Normal Respiratory: Normal. absent: SOB, Cough Cardiovascular: Normal. absent: Chest Pain Gastrointestinal: Normal. absent: Abdominal Pain, Diarrhea, Nausea, Vomiting Genitourinary Female: Normal. absent: Dysuria, Frequency, Hematuria, Urine Output Changes Musculoskeletal: Normal. absent: Back Pain, Neck Pain Skin: Normal. absent: Rash Neurological: Other (+bilateral upper extremity heaviness). absent: Speech Changes Endocrine: Normal Hemo/Lymphatic: Normal Psychiatric: Normal ED Stroke Physical Exam Vital Signs Reviewed: Yes Vital Signs Temp Pulse Resp BP Pulse Ox 03/20/17 01:08 97.9 F 116 H 18 151/89 H 97 Temperature: Afebrile Blood Pressure: Normal Pulse: Regular Respiratory Rate: Normal Appearance: Positive for: Well-Appearing, Non-Toxic, Comfortable Pain Distress: None Mental Status: Positive for: Alert and Oriented X 3 - Systems Exam Head: Present: Atraumatic, Normocephalic Pupils: Present: PERRL Extroacular Muscles: Present: EOMI Conjunctiva: Present: Normal Ears: Present: Normal, NORMAL TM, Normal Canal. No: Erythema, TM Bulging, Fluid , TM Perf Mouth: Present: Moist Mucous Membranes Pharnyx: Present: Normal. No: ERYTHEMA, EXUDATE, TONSILS ENLARGED, Peritonsilar Swelling, Uvular Deviation, Muffled/Hoarse Voice, Strider, Soft Palate/Uvular Edema Nose (External): Present: Atraumatic Nose (Internal): Present: Normal Inspection Neck: Present: Normal Range of Motion. No: Meningeal Signs, MIDLINE TENDERNESS , Paraspinal Tenderness Respiratory/Chest: Present: Clear to Auscultation, Good Air Exchange. No: Respiratory Distress, Accessory Muscle Use Cardiovascular: Present: Regular Rate and Rhythm, Normal S1, S2. No: Murmurs Abdomen: Present: Normal Bowel Sounds. No: Tenderness, Distention, Peritoneal Signs Genitourinary/Pelvic Exam: Present: NI. No: C, E Back: Present: Normal Inspection. No: CVA Tenderness, Midline Tenderness, Paraspinal Tenderness Upper Extremity: Present: Normal Inspection, Normal ROM, NORMAL PULSES, Neurovascularly Intact, Capillary Refill < 2s. No: Cyanosis, Edema, Tenderness , Swelling, Erythema, Deformity Lower Extremity: Present: Normal Inspection, NORMAL PULSES, Normal ROM, Neurovascularly Intact, Capillary Refill < 2 s. No: Edema, Tenderness, Swelling , Erythema, Deformity, Temperature Abnormalties Neurologic: Present: GCS=15, CN II-XII Intact, Speech Normal, Motor Func Grossly Intact, Normal Sensory Function, Normal Cerebellar Funct, Memory Normal. No: Pronator Drift Skin: Present: Warm, Dry, Normal Color. No: Rashes Lymphatic: Present: OX3, NI, NC Psychiatric: Present: Alert, Oriented x 3, Normal Insight, Normal Concentration Medical Decision Making ED Course and Treatment: 03/20/17 01:10 Impression: 81 year old female complaining of generalized weakness, head/upper extremity weakness, and clouded vision Differential Diagnosis included but are not limited to: CVA vs. TIA Plan: -- CT Head w/o contrast -- EKG -- CXR -- Labs, troponin, lipid panel, blood type and screen -- Reassess and disposition Prior Visits: Notes and results from previous visits were reviewed. On 09/20/2016, pt was seen in the Emergency department for slurred speech and right lower extremty weakness. Pt was admitted to the hospital for further evaluation. Progress Notes: 03/20/17 01:10 Pt seen on arrival to Emergency department. Code Stroke called. Pt taken CT scan. 03/20/17 01:[address] Linda Gabriel, who is aware and agrees with plan. States pt not a candidate for tPA due to rapid improvement of symptoms. 03/20/17 01:54 Reviewed radiology, CT Head shows: Brain: [id number] atrophy. No intracranial hemorrhage. No mass. Multiple scattered foci of decreased attenuation within periventricular/subcortical white matter. No definite edema. Ventricles: No hydrocephalus. Bones/joints: No acute fracture. Soft tissues: Unremarkable. Vasculature: Atherosclerotic disease of intracranial arteries. Sinuses: Scattered minimal mucosal thickening. Mastoid air cells: No mastoid effusion. Orbits: Unremarkable as visualized. IMPRESSION: 1. Nonspecific white matter changes. Acute infarction may be CT occult within first 24 hours. If a focal deficit persists, consider followup CT or MRI for further evaluation. 2. Incidental/non-acute findings are described above. 03/20/17 02:05 Reviewed EKG, sinus tachycardia at [address]pm[address] RBBB. Non-specific ST/T wave changes. 03/20/17 04:[address] Hudson, who is aware and agrees with plan. Accepts pt in to his service. Pt will go to Telemetry observation for TIA. - Lab Interpretations I have reviewed the lab results: Yes - RAD Interpretation Turnaround Engineer: ED Physician, Radiologist - Scribe Statement The provider has reviewed the documentation as recorded by the Scribe Randa Short All medical record entries made by the Scribe were at my direction and personally dictated by me. I have reviewed the chart and agree that the record accurately reflects my personal performance of the history, physical exam, medical decision making, and the department course for this patient. I have also personally directed, reviewed, and agree with the discharge instructions and disposition. NIHSS Scale ([place]) Time Performed: 01:10 - How Severe is the Stoke Baseline Level of Consciousness: 0=Alert LOC to Questions: 0=Both comments correct LOC to commands: 0=Obeys both correctly Best Gaze: 0=Normal Visual: 0=No visual loss Facial: 0=Normal Motor Arm - Left: 0=No drift Motor Arm - Right: 0=No drift Motor Leg - Left: 0=No drift Motor Leg - Right: 0=No drift Limb Ataxia: 0=Absent Sensory: 0=Normal Best Language: 0=No aphasia Dysarthia: 0=Normal articulation Extinction & Inattention (Neglect): 0=Normal, no object Score: 0 Risk Level: No Stroke Risk Disposition/Present on Arrival - Present on Arrival Any Indicators Present on Arrival: No History of DVT/PE: No History of Uncontrolled Diabetes: No Urinary Catheter: No History of Decub. Ulcer: No History Surgical Site Infection Following: None - Disposition Have Diagnosis and Disposition been Completed?: Yes Diagnosis: TIA (transient ischemic attack) Disposition: HOSPITALIZED Disposition Time: 03:50 Patient Plan: Observation Patient Problems: Current Active Problems Problem Status Onset TIA (transient ischemic attack) Acute Condition: STABLE
--- NOTE | 2017-03-20 01:43 | CT ---
EXAM: CT Head Without Intravenous Contrast CLINICAL HISTORY: 81 years old, female; Signs and symptoms; Other: Code stroke TECHNIQUE: Axial computed tomography images of the head/brain without intravenous contrast. All CT scans at this facility use one or more dose reduction techniques, viz.: automated exposure control; ma/kV adjustment per patient size (including targeted exams where dose is matched to indication; i.e. head); or iterative reconstruction technique. COMPARISON: CT - HEAD W/O CONTRAST 2016-09-20 18:47 FINDINGS: Brain: Sdao-mn-zxicdhjc atrophy. No intracranial hemorrhage. No mass. Multiple scattered foci of decreased attenuation within periventricular/subcortical white matter. No definite edema. Ventricles: No hydrocephalus. Bones/joints: No acute fracture. Soft tissues: Unremarkable. Vasculature: Atherosclerotic disease of intracranial arteries. Sinuses: Scattered minimal mucosal thickening. Mastoid air cells: No mastoid effusion. Orbits: Unremarkable as visualized. IMPRESSION: 1. Nonspecific white matter changes. Acute infarction may be CT occult within first 24 hours. If a focal deficit persists, consider followup CT or MRI for further evaluation. 2. Incidental/non-acute findings are described above.
[2017-03-20 03:20] LABS: BASO # 0.05 K/mm3 (0.0-2.0); BASO % 0.5 % (0.0-3.0); EOS # 0.3 (0.0-0.7); EOS % 3.1 % (1.5-5.0); GRAN # 6.37 (1.4-6.5); GRAN % 68.2 % (50.0-68.0); HEMATOCRIT 36.8 % (36.0-48.0); LYMPH # 1.8 (1.2-3.4); LYMPH % 19.1 % (22.0-35.0); MEAN CELL VOLUME 95.6 fl (80.0-105.0); MEAN CORPUSCULAR HEMOGLOBIN 30.4 pg (25.0-35.0); MEAN CORPUSCULAR HGB CONC 31.8 g/dl (31.0-37.0); MEAN PLATELET VOLUME 11.5 fl (7.0-11.0); MONO # 0.9 (0.1-0.6); MONO % 9.1 % (1.0-6.0); RED CELL DISTRIBUTION WIDTH 14.6 % (11.5-14.5); WHITE BLOOD COUNT 9.3 10^3/ul (4.5-11.0)
[2017-03-20 03:30] LABS: ALB/GLOB RATIO 1.3 (1.1-1.8); ALKALINE PHOSPHATASE 125 U/L (38-126); ALT/SGPT 28 U/L (7-56); AST/SGOT 27 U/L (14-36); BILIRUBIN,TOTAL 0.4 mg/dL (0.2-1.3); BLOOD UREA NITROGEN 17 mg/dL (7-21); CALCIUM 9.8 mg/dL (8.4-10.5); CARBON DIOXIDE 29 mmol/L (21-33); CHLORIDE 107 mmol/L (98-107); CHOLESTEROL 192 mg/dL (130-200); GFR AFRICAN-AMERICAN > 60; GLUCOSE,RANDOM 105 mg/dL (70-110); POTASSIUM 3.8 mmol/L (3.6-5.0); SODIUM 143 mmol/L (132-148); TOTAL PROTEIN 6.7 g/dL (5.8-8.3)
[2017-03-20 03:36] LABS: INR 1.12 (0.93-1.08); PARTIAL THROMBOPLASTIN TIME 28.5 Seconds (25.1-36.5)
[2017-03-20 03:43] LABS: TROPONIN I 0.04 ng/mL
--- NOTE | 2017-03-20 09:36 | RAD ---
HISTORY: weak COMPARISON: Comparison chest 09/20/2016. FINDINGS: LUNGS: Poor inspiration with low lung volumes, crowded bronchovascular markings and mild bibasilar atelectasis left greater than right. There may also be some chronic scarring left lung base and CP angle region. . PLEURA: No significant pleural effusion identified, no pneumothorax apparent. CARDIOVASCULAR: Heart appears mildly enlarged. Aorta is slightly ectatic and uncoiled. OSSEOUS STRUCTURES: Moderate degenerative changes both shoulder girdles. VISUALIZED UPPER ABDOMEN: Normal. OTHER FINDINGS: None. IMPRESSION: Mild bibasilar atelectasis left greater than right. There may also be some mild chronic scarring left lung base and CP angle region
--- NOTE | 2017-03-20 10:43 | CARD ---
APPROVED REPORT EKG Measurement Heart [id number] <Conclusion> Undetermined rhythm Right bundle branch block Cannot rule out Inferior infarct, age undetermined Abnormal ECG
[2017-03-20] MEDS: Tiotropium 18 mcg Cap For Inhalation IH SCH (11:03)
--- NOTE | 2017-03-21 01:08 | HP ---
HISTORY OF PRESENT ILLNESS: A 81-year-old white female with history of severe degenerative arthritis, CVA in the past, history of fractured left leg, history of hip replacement, and history of hypertension. The patient has been in hospital, had been at home in the usual state of health and developed severe weakness in both upper extremities and head. The patient's mental status have changed according to the family. The patient was brought to the ER and was admitted. The patient the following morning has improved. She has no weakness in the upper and lower extremities. She has no facial droop. No facial symmetry, no local focal lateralizing signs. PHYSICAL EXAMINATION: GENERAL; The patient is awake, alert and oriented x3. NEUROLOGIC: Speech is fluent. Cranial nerves II through XII are intact. Strengthening of the lower extremities is equal. Babinski's are down going bilaterally. CHEST: Clear to auscultation. HEART: Reveals sinus rhythm. LABORATORY DATA: Unremarkable. Blood pressure is stable. H and H are within normal limits. Potassium is 2.8. CT of the head was negative. The patient will have an MRI of the brain and neurological evaluation, possible TIA versus exacerbation of cervical arthritis. Isauro Hudson MD cc:
[2017-03-21] MEDS: Tiotropium 18 mcg Cap For Inhalation IH SCH (10:49)
--- NOTE | 2017-03-21 14:23 | MRI ---
PROCEDURE: MRI BRAIN WITHOUT CONTRAST HISTORY: TIA COMPARISON: Comparison made with prior CT scan and MRI of the brain dated 03/20/2017 and 09/21/2016. TECHNIQUE: Multiplanar, multisequence MR images of the brain were obtained without intravenous contrast enhancement. FINDINGS: HEMORRHAGE: No acute parenchymal, subarachnoid or extra-axial hemorrhage. No evidence of hemosiderin deposition identified on gradient echo weighted sequence DWI: No evidence of an acute or early subacute infarction seen on diffusion imaging. . BRAIN PARENCHYMA: Significant diffuse/ confluent chronic white matter ischemic changes are again seen extending peripherally into the deep and subcortical white matter both cerebral hemispheres. There is also extension into white matter tracts of both basal nuclei. Multiple more discrete bilateral chronic appearing lacunar type infarcts seen scattered about the deep and subcortical white matter as well as both basal nuclei. No obvious parenchymal nor extra-axial mass or collection seen on this noncontrast study. Moderate generalized volume loss VENTRICLES: No obstructive hydrocephalus CRANIUM: Unremarkable. ORBITS: Changes of bilateral cataract surgery again noted. PARANASAL SINUSES/MASTOIDS: Minor mucosal thickening seen within the maxillary antrum bilaterally as well as a few ethmoid air cells. VASCULAR SYSTEM: Visualized major vascular flow voids at skull base patent. . OTHER FINDINGS: None. IMPRESSION: No acute intracranial hemorrhage or infarct. The the spell. Significant diffuse/confluent chronic white matter and basal nuclei ischemic changes. Moderate volume loss.
--- NOTE | 2017-03-21 19:27 | PN ---
DATE: SUBJECTIVE: An 81-year-old white female history of CVA in the past, history of degenerative arthritis, and hypertension. The patient was admitted with weakness in the head and upper extremities, which has resolved. CT was negative. Seen in consultation with Dr. Gabriel, from Neurology. CAT scan, MRI, and EEG ordered. The patient is awake and oriented x3. PHYSICAL EXAMINATION: VITAL SIGNS: Stable. CHEST: Clear to auscultation. HEART: Reveal sinus rhythm. LABORATORY DATA: Unremarkable. ASSESSMENT AND PLAN: Possible transient ischemic attack versus in an 81-year-old white female with history of cerebrovascular accident in the past. Isauro Hudson MD
--- NOTE | 2017-03-21 21:17 | CON ---
DATE: NEUROLOGY CONSULTATION REPORT REASON FOR CONSULTATION: Possible TIA. HISTORY OF PRESENT ILLNESS: The patient is an 81-year-old female, who has been asked for evaluation of weakness in her arms. As per the patient's family, she was brought to the Emergency Room for generalized weakness. She experiences heaviness in her head and heaviness in both upper extremities. Apparently, she was having double vision at home and also felt to be a little confused at home and her symptoms lasted until she came into the hospital and then she started getting better. She denies any new focal weakness in arm or leg. She has a history of old cerebrovascular accident with mild right weakness. The patient walks with a walker at home. At the moment, she feels fine. REVIEW OF SYSTEMS: Denies any headache, dizziness, chest pain, shortness of breath, abdominal pain, constipation, diarrhea, dysuria, cough, or sputum production. PAST MEDICAL HISTORY: Includes hypertension, COPD, coronary artery disease, lung cancer, CVA. MEDICATIONS: At home included, clonidine, Spiriva, Macrobid, Lopressor, folic acid, Pepcid, Aricept, Colace, Lipitor, aspirin, and Tylenol. ALLERGIES: NO KNOWN DRUG ALLERGIES. SOCIAL HISTORY: Denies smoking, use of alcohol, or illicit drugs. FAMILY HISTORY: Reviewed and noncontributory to the case. PHYSICAL EXAMINATION GENERAL: The patient is an elderly female lying on the bed, in no acute distress. VITAL SIGNS: Her blood pressure is 172/80, heart rate 66 per minute, breathing at a rate of 16 per minute, and temperature is 97.7 degrees Fahrenheit. HEENT: Head is normocephalic and atraumatic. NECK: Supple. There are no carotid bruits. LUNGS: Clear. CARDIOVASCULAR SYSTEM: S1 and S2 audible. No murmurs. ABDOMEN: Soft and nontender with bowel sounds present. NEUROLOGIC: Mental status. The patient is awake, alert, oriented to time, place, and person. Speech is fluent. Naming and repetition is normal. Memory and cognition are intact. Cranial nerve examination: Pupils are 3 mm bilaterally and reactive to light. Visual castellanos are full. Extraocular movements are intact. There is no facial asymmetry. The palate is upgoing bilaterally and tongue is midline. Motor Examination: Tone is normal. Power in the upper extremities is 5/5, power in the lower extremity right is -5/5, at the left is 5/5. Reflexes are +1 and symmetrical with absent ankle jerk. Plantars are downgoing bilaterally. Cerebellar examination, [id number] shows no dysmetria. Gait is deferred at the moment. The patient usually walks with the help of a walker. LABORATORY DATA: Labs reviewed, shows WBC of 9.3, hemoglobin of 11.7, hematocrit 36.8, and platelet of 261. INR is 1.12. Sodium is 143, potassium 3.8, chloride 107, carbon dioxide content of 29, BUN of 17, creatinine 0.8, and glucose of 105. Cholesterol is 192. LDL is 122. She had CT scan of the head done, which showed nonspecific white matter changes. No acute intracranial pathology. IMPRESSION: 1. Status post weakness in the upper extremities and head heaviness with some questionable confusion. This may have been possible transient ischemic attack. 2. Gait dysfunction. 3. History of old cerebrovascular accident. RECOMMENDATIONS: 1. The patient to have MRI of the brain without contrast. 2. The patient also to have carotid Doppler study. 3. The patient to be restarted on aspirin. 4. The patient to have another electroencephalogram. 5. The patient to have physical therapy for gait imbalance. 6. The patient also be continued on statin. 7. Please continue other treatment and supportive care. Thank you for the opportunity to participate in the care of this patient. Ivana Gabriel MD
[2017-03-22] MEDS: Tiotropium 18 mcg Cap For Inhalation IH SCH (10:14)
--- NOTE | 2017-03-22 10:18 | PN ---
DATE: NEUROLOGY PROGRESS NOTE SUBJECTIVE: The patient is lying on the bed, in no acute distress. Complains of pain on the right side of her chest wall. Denies any weakness in her arms. PHYSICAL EXAMINATION: VITAL SIGNS: Her blood pressure 169/81, heart rate 67 per minute, breathing at the rate of 16 per minute, and temperature is 97.4 degrees Fahrenheit. HEENT: Head is normocephalic and atraumatic. NECK: Supple. There are no carotid bruits. LUNGS: Clear. CARDIOVASCULAR: S1 and S2 audible. No murmurs. ABDOMEN: Soft and nontender. Bowel sounds are present. NEUROLOGY: Mental status: The patient is awake, alert, and oriented to time, place, and person. Speech is fluent. Naming and repetition is normal. Memory and cognition are intact. Cranial nerves examination; pupils are 3 mm bilaterally and reactive to light. Visual castellanos are full. Extraocular movements are intact. There is no facial asymmetry. The palate is upgoing bilaterally and tongue is midline. Motor examination; tone is normal. Power is 5/5 bilaterally in all extremities. Plantars are downgoing bilaterally. Cerebellar examination, [id number] shows no dysmetria. LABORATORY DATA: Reviewed. MRI of the brain, no acute intracranial hemorrhage or infarct. Significant diffuse , chronic white matter, and basal nuclei ischemic changes. Moderate volume loss. IMPRESSION: 1. Status post possible transient ischemic attack. 2. Gait dysfunction. 3. History of cerebrovascular disease. RECOMMENDATIONS: 1. The patient had a carotid Doppler study. Please followup with the results. 2. The patient to have an electroencephalogram. 3. The patient to be continued on aspirin. 4. The patient also to be continued on statin. 5. The patient will have physical therapy for gait and balance. 6. Please continue supportive care and other treatment. Thank you for the opportunity to participate in the care of this patient. Ivana Gabriel MD
--- NOTE | 2017-03-22 13:14 | US ---
PROCEDURE: Bilateral carotid artery duplex ultrasound HISTORY: Carotid stenosis TIA PHYSICIAN(S): Arash Chin MD. TECHNIQUE: Duplex sonography and color-flow Doppler were used to evaluate the carotid bifurcations and limited segments of the vertebral arteries bilaterally. FINDINGS: There is mild to moderate diffuse smooth heterogeneous plaque noted at the carotid bifurcations bilaterally. The peak systolic velocity in the proximal right internal carotid artery is 94 cm/sec. This corresponds to a 20 to 39% proximal right ICA stenosis. Normal systolic velocities are noted in the proximal right external carotid artery. There is antegrade flow in the right vertebral artery. The peak systolic velocity in the proximal left internal carotid artery is 100 cm/sec. This corresponds to a 20 to 39% proximal left ICA stenosis. Normal systolic velocities are noted in the proximal left external carotid artery. There is antegrade flow in the left vertebral artery. IMPRESSION: 1. Bilateral 20-39% proximal ICA stenoses. 2. Antegrade flow in both vertebral arteries.
--- NOTE | 2017-03-22 14:58 | PN ---
DATE: SUBJECTIVE: An 81-year-old white female admitted to hospital with TIA. OBJECTIVE: MRI shows scattered small vessel disease with volume loss. CT was negative. The patient is having carotid Doppler done and results are pending. ASSESSMENT AND PLAN: Seen in consultation Neurology. The patient is doing physical therapy and occupational therapy. Also has diffuse degenerative arthritis. The patient will finish her therapy and most likely be discharged home with outpatient Physical Therapy. Isauro Hudson MD
--- NOTE | 2017-03-22 17:13 | US ---
HISTORY: RUQ.Pain COMPARISON: 10/31/2015 TECHNIQUE: Sonographic evaluation of the abdomen. FINDINGS: LIVER: Measures 14.0 cm. Patent portal vein. Portal venous flow: Hepatopetal. Unremarkeable echogenicity of the liver parenchyma. No mass. No intrahepatic bile duct dilatation. GALLBLADDER: Status post cholecystectomy. No abnormality is seen in the gallbladder fossa. COMMON BILE DUCT: Measures 13.2 mm. Post cholecystectomy dilatation similar to that identified on the prior abdominal ultrasound. PANCREAS: Unremarkable as visualized. No mass. No ductal dilatation. RIGHT KIDNEY: Measures 3.7 x 9.6cm. Normal echogenicity. No calculus, mass, or hydronephrosis. LEFT KIDNEY: Measures 5.8 x 10.2cm. There is a component of renal cortical atrophy perhaps medical renal disease.Incidental finding(s): Simple cyst 1.6 cm SPLEEN: Normal in size and contour. No mass. AORTA: No aneurysmal dilatation. IVC: Unremarkable. OTHER FINDINGS: None. IMPRESSION: No acute findings related to/accounting for the clinical presentation. No significant interval change compared to the prior examination(s). Additional benign and/or incidental findings described above.
[2017-03-23 00:03] VITALS: O2SAT 97
[2017-03-23 05:56] VITALS: RESP 18
[2017-03-23] MEDS: Tiotropium 18 mcg Cap For Inhalation IH SCH (10:07)
[2017-03-23] MEDS ORDERED: Influenza Vaccine 60 mcg/0.5 mL SYR (4YR UP) IM ONE (12:30)
[2017-03-23 12:34] VITALS: BP 151/78; PULSE 65; TEMP 98.6
--- NOTE | 2017-03-23 13:47 | PN ---
DATE: SUBJECTIVE: An 81-year-old white female who is admitted with TIA, status post MRI showing microvascular change without any acute changes. Weakness, the patient has regained her strength in the upper extremities and her head. OBJECTIVE: Vital signs are stable. Ultrasound of the abdomen was negative. There is no further abdominal pain. Urinalysis is pending. ASSESSMENT AND PLAN: The patient most likely discharge home today. Physical examination is unchanged. Neurologically, the patient is back to baseline. Isauro Hudson MD
--- NOTE | 2017-03-24 04:39 | DS ---
SUMMARY: The patient is an 81-year-old white female admitted to the hospital with upper arm weakness and generalized fatigue, felt to have possible TIA, who was seen in consultation with Dr. Ivana Gabriel. The patient had a CT of the head and MRI of the brain and a carotid Doppler done. MRI showed high level of small vessel infarcts bilaterally. The carotid Doppler revealed bilateral 20-39% proximal ICA stenosis; otherwise unremarkable. She did have ultrasound of the abdomen because of right upper quadrant pain which was negative. As stated, the brain MRI showed age-related volume loss and there is no acute intracranial hemorrhage or infarct. Diffuse confluent chronic white matter *------* ischemic changes and moderate volume loss. The patient did physical therapy and occupational therapy and was eventually able to be discharged home in improved condition. FINAL DISCHARGE DIAGNOSES: Transient ischemic attack, small vessel ischemic disease, degenerative arthritis, hypertension, and hyperlipidemia. She continues on Aricept for dementia, Klonopin, aspirin, folic acid, and Lipitor. The patient will be followed as an outpatient. Isauro Hudson MD
--- NOTE | 2017-03-24 11:11 | EEG ---
DATE: ELECTROENCEPHALOGRAM REPORT EEG done on 03/22/2017. INTRODUCTION: This is a digitally recorded EEG monitoring using standard EEG montages. BACKGROUND RHYTHM: The EEG shows a background activity of 8-9 Hz alpha activity in parietooccipital region. The EEG activity is bilaterally symmetrical and synchronous. There is attenuation of the background activity on eye opening. Drowsiness was noted by slowing of the background activity. ABNORMAL POTENTIALS: No spike, sharp waves, or focal slowing was seen. PHOTIC STIMULATION AND HYPERVENTILATION: Photic stimulation did not reveal any abnormality. Hyperventilation was not performed. IMPRESSION: Normal electroencephalogram. No epileptiform activity is seen in this electroencephalogram recording. Ivana Gabriel MD
== END 2017-03-23 14:25 | disposition home or self-care (01) | DRG 69 ==
LOC: ED 00:52 → ERH 03:50 → 3RSO 05:53 → OBSVTOIN 03-22 15:58
PROVIDERS: ADMIT Internal Medicine; ATTEND Internal Medicine
DX: G45.9 Transient cerebral ischemic attack, unspecified (principal); J44.9 Chronic obstructive pulmonary disease, unspecified; F03.90 Unspecified dementia, unspecified severity, without behavioral disturbance, psychotic disturbance, mood disturbance, and anxiety; I25.10 Atherosclerotic heart disease of native coronary artery without angina pectoris; I65.23 Occlusion and stenosis of bilateral carotid arteries; E78.5 Hyperlipidemia, unspecified; I10 Essential (primary) hypertension; I45.10 Unspecified right bundle-branch block; R53.1 Weakness; R26.9 Unspecified abnormalities of gait and mobility; M19.90 Unspecified osteoarthritis, unspecified site; H54.61 Unqualified visual loss, right eye, normal vision left eye; Z85.118 Personal history of other malignant neoplasm of bronchus and lung; Z86.73 Personal history of transient ischemic attack (TIA), and cerebral infarction without residual deficits; Z95.5 Presence of coronary angioplasty implant and graft; Z96.649 Presence of unspecified artificial hip joint

== ENCOUNTER 2017-06-16 18:52 | Inpatient (IN) | payer MEDICARE, BC ==
--- NOTE | 2017-06-16 19:29 | ED PDOC ---
Arrival/HPI - General Chief Complaint: Trauma Time Seen by Provider: 06/16/17 19:04 Historian: Patient - History of Present Illness Narrative History of Present Illness (Text): 06/16/17 19:23 A 82 year old female, whose past medical history includes hypertension, hyperlipidemia, COPD, TIA and chronic left shoulder pain radiating to neck, presents to the emergency department complaining of generalized weakness. Patient reports she was having dinner when she felt weak which caused her to slide of her chair. Patient notes she was having a headache and neck pain today. Patient took Ibuprofen, with no relief. Patient notes a cough but denies any injuries, loss of consciousness, head trauma, fever, chills, nausea, vomiting, diarrhea, abdominal pain, urinary symptoms, chest pain, shortness of breath, weakness, numbness or any other complaints. PMD: Dr. Hudson Time/Duration: Prior to Arrival Symptom Course: Unchanged Context: Home Past Medical History - Provider Review Nursing Documentation Reviewed: Yes - Infectious Disease Hx of Infectious Diseases: None - Tetanus Immunization Tetanus Immunization: Unknown - Cardiac Hx Cardiac Disorders: Yes Hx Angina: Yes Hx Hypertension: Yes Hx Peripheral Edema: Yes - Pulmonary Hx Respiratory Disorders: Yes Hx Chronic Obstructive Pulmonary Disease (COPD): Yes - Neurological Hx Neurological Disorder: Yes HX Cerebrovascular Accident: Yes (R sided weakness, many years ago) Hx Dementia: Yes Hx Migraine: Yes - HEENT Hx HEENT Disorder: Yes Hx Blind: Yes (right eye visual impairment) Other/Comment: retinal detachment - Renal Hx Renal Disorder: No - Endocrine/Metabolic Hx Endocrine Disorders: Yes Hx Diabetes Mellitus Type 2: Yes - Hematological/Oncological Hx Blood Disorders: Yes Hx Cancer: Yes (lung, with chemo therapy) - Integumentary Hx Dermatological Disorder: No - Musculoskeletal/Rheumatological Hx Musculoskeletal Disorders: Yes Hx Falls: Yes - Gastrointestinal Hx Gastrointestinal Disorders: Yes Hx Gall Bladder Disease: Yes Hx Gastroesophageal Reflux: Yes - Genitourinary/Gynecological Hx Genitourinary Disorders: No - Psychiatric Hx Psychophysiologic Disorder: Yes Hx Anxiety: Yes Hx Depression: Yes Hx Substance Use: No - Past Surgical History Past Surgical History: Non-Contributing - Surgical History Hx Appendectomy: Yes Hx Cardiac Catheterization: Yes Hx Cholecystectomy: Yes Hx Coronary Stent: Yes (x 4) Hx Joint Replacement: Yes (right knee) Hx Orthopedic Surgery: Yes (left ankle) - Anesthesia Hx Anesthesia: Yes Hx Anesthesia Reactions: No Hx Malignant Hyperthermia: No - Suicidal Assessment Feels Threatened In Home Enviroment: No Family/Social History - Physician Review Nursing Documentation Reviewed: Yes Family/Social History: No Known Family HX Smoking Status: Smoker Currrent Status Unknown Hx Alcohol Use: No Hx Substance Use: No Hx Substance Use Treatment: No Allergies/Home Meds Allergies/Adverse Reactions: Allergies No Known Allergies Allergy (Verified 03/20/17 01:01) Review of Systems - Physician Review All systems were reviewed & negative as marked: Yes - Review of Systems Constitutional: Other (generalized weakness). absent: Fevers, Night Sweats Respiratory: absent: SOB Cardiovascular: absent: Chest Pain Gastrointestinal: absent: Abdominal Pain, Diarrhea, Nausea, Vomiting Genitourinary Female: absent: Dysuria, Frequency, Hematuria, Urine Output Changes Musculoskeletal: Neck Pain Neurological: Headache. absent: Focal Weakness Physical Exam Vital Signs Reviewed: Yes Vital Signs Temp Pulse Resp BP Pulse Ox 06/16/17 23:08 60 19 126/62 98 06/16/17 21:03 97.8 F 61 18 148/95 H 98 06/16/17 19:05 97.4 F L 62 19 143/66 98 Temperature: Afebrile Blood Pressure: Normal Pulse: Regular Respiratory Rate: Normal Appearance: Positive for: Well-Appearing, Non-Toxic, Comfortable Pain Distress: None Mental Status: Positive for: Alert and Oriented X 3 - Systems Exam Head: Present: Atraumatic, Normocephalic Pupils: Present: PERRL Extroacular Muscles: Present: EOMI Conjunctiva: Present: Normal Mouth: Present: Moist Mucous Membranes Neck: Present: Normal Range of Motion, Other (left sided neck tenderness to palpation). No: MIDLINE TENDERNESS Respiratory/Chest: Present: Clear to Auscultation, Good Air Exchange. No: Respiratory Distress, Accessory Muscle Use Cardiovascular: Present: Regular Rate and Rhythm, Normal S1, S2. No: Murmurs Abdomen: Present: Normal Bowel Sounds. No: Tenderness, Distention, Peritoneal Signs Back: Present: Normal Inspection Upper Extremity: Present: Normal Inspection. No: Cyanosis, Edema Lower Extremity: Present: Normal Inspection. No: Edema Neurological: Present: GCS=15, CN II-XII Intact, Speech Normal, Motor Func Grossly Intact, Normal Sensory Function, Normal Cerebellar Funct, Norm Deep Tendon Reflexes, Memory Normal Skin: Present: Warm, Dry, Normal Color. No: Rashes Psychiatric: Present: Alert, Oriented x 3, Normal Insight, Normal Concentration Medical Decision Making ED Course and Treatment: 06/16/17 19:23 Impression: A 82 year old female with generalized weakness. Patient notes headache and neck pain. Differential Diagnosis included but are not limited to: Weakness r/o Infection ; Neck/Headache pain r/o acute on chronic pains r/o herniation Plan: -- Head CT -- Cervical CT -- Chest xray -- EKG -- Labs -- Blood and urine culture -- Urinalysis -- Reassess and disposition Progress Notes: EKG shows sinus bradycardia at 58 BPM with 1st degree AV block, incomplete RBBB. Interpreted by me. Report Date : 06/16/2017 21:12:00 EXAM: CT Head Without Intravenous Contrast Dictator : Mack Kramer MD IMPRESSION: 1. No acute intracranial hemorrhage or acute territorial type infarct. 2. There is a stable hypodense chronic lacunar infarct within the left basal ganglia. 3. There is extensive cerebral white matter hypodensity, likely representing small vessel ischemic disease in a patient this age. 4. Moderate atrophy. 5. Paranasal sinus disease is noted above. Report Date : 06/16/2017 21:20:00 EXAM: CT Cervical Spine Without Intravenous Contrast Dictator : Mack Kramer MD IMPRESSION: 1. No acute cervical spine fracture. 2. The cervical lordosis is straightened. There is mild retrolisthesis of C5 on C6. 3. Spondylosis is visualized at multiple cervical levels. 4. Posterior disc herniation/protrusions are visualized from C2-3 through C4-5 with mild narrowing of the thecal sac. There is mild/moderate narrowing of the thecal sac at C5-6, with mild narrowing of the thecal sac at C6-7. These findings can be further evaluated with MRI. 5. Within the left upper lobe of the lung on series 2 image 86, there is a 4-5 mm nodule. A nonemergent chest CT is recommended. 06/16/17 23:14 CXR negative for PNA. UA positive for UTI. WBC nl in CBC. BUN elevated. Creatinine nl. No fever. Levaquin IV ordered. Patient too weak to stand. She stands her pain was improved but she doesn't feel well. Discussed case with FIFI Lindsey who works with Dr. Hudson who agrees to place patient on observation. - Lab Interpretations Lab Results: 06/16/17 19:29 06/16/17 19:29 Lab Results 06/16/17 21:01: Urine Color Yellow, Urine Appearance Sl cloudy, Urine pH 6.5, Ur Specific Addison 1.015, Urine Protein Negative, Urine Glucose (UA) Negative, Urine Ketones Negative, Urine Blood Negative, Urine Nitrate Negative, Urine Bilirubin Negative, Urine Urobilinogen 0.2, Ur Leukocyte Esterase Small H, Urine RBC Negative, Urine WBC 10 - 15, Ur Epithelial Cells 4 - 5, Urine Bacteria Few 06/16/17 19:52: POC Glucose (mg/dL) 102 06/16/17 19:29: Blood Type A POSITIVE, Antibody Screen Negative, BBK History Checked Patient has bt 06/16/17 19:29: Sodium 144, Potassium 4.1, Chloride 105, Carbon Dioxide 29, Anion Gap 14, BUN 29 H, Creatinine 1.0, Est GFR ( Amer) > 60, Est GFR ( Non-Af Amer) 53, Random Glucose 88, Calcium 9.7, Total Bilirubin 0.5, AST 39 H D , ALT 32, Alkaline Phosphatase 118, Troponin I < 0.01 D, Total Protein 7.5, Albumin 4.2, Globulin 3.3, Albumin/Globulin Ratio 1.3, Triglycerides 135, Cholesterol 227 H, LDL Cholesterol Direct 136 H, HDL Cholesterol 50 06/16/17 19:29: PT 11.2, INR 0.98, APTT 28.5 06/16/17 19:29: WBC 9.3, RBC 3.99, Hgb 12.1, Hct 38.7, MCV 97.0, MCH 30.3, MCHC 31.3, RDW 16.2 H, Plt Count 259, MPV 11.4 H, Gran % 63.6, Lymph % (Auto) 23.1, Tyrrell % (Auto) 7.1 H, Eos % (Auto) 5.7 H, Baso % (Auto) 0.5, Gran # 5.93, Lymph # (Auto) 2.2, Tyrrell # (Auto) 0.7 H, Eos # (Auto) 0.5, Baso # (Auto) 0.05 - RAD Interpretation Radiology Orders: 06/16/17 19:21 CHEST PORTABLE [RAD] Stat 06/16/17 19:23 HEAD W/O CONTRAST [CT] Stat 06/16/17 19:24 CERVICAL SPINE W/O CONTRAST [CT] Stat - Medication Orders Current Medication Orders: Sodium Chloride (Sodium Chloride 0.9%) 1,000 mls @ 100 mls/hr IV .Q10H REE Last Admin: 06/16/17 23:08 Dose: 100 mls/hr eMAR Start Stop Document 06/16/17 23:08 APURVA (Rec: 06/16/17 23:08 APURVA [email or web address]) Intravenous Solution Start Date 06/16/17 Start Time 23:08 Discontinued Medications Cyclobenzaprine HCl (Flexeril) 5 mg PO STAT STA Stop: 06/16/17 21:09 Last Admin: 06/16/17 21:19 Dose: 5 mg Guaifenesin (Robitussin) 200 mg PO STAT STA Stop: 06/16/17 21:53 Last Admin: 06/16/17 22:21 Dose: 200 mg Ketorolac Tromethamine (Toradol) 15 mg IVP STAT STA Stop: 06/16/17 21:17 Last Admin: 06/16/17 21:25 Dose: 15 mg MAR Pain Assessment Document 06/16/17 21:25 LA (Rec: 06/16/17 21:26 APURVA ALONZO-PC) Pain Reassessment Is this a pain reassessment? No Sleep Is patient sleeping during reassessment? No Presence of Pain Presence of Pain Yes Pain Scale Used Pain Scale Used Numeric IVP Administration Document 06/16/17 21:25 LA (Rec: 06/16/17 21:26 APURVA ALONZO-PC) Charges for Administration # of IVP Administrations 1 Metoclopramide HCl (Reglan) 10 mg IVP STAT STA Stop: 06/16/17 21:09 Last Admin: 06/16/17 21:19 Dose: 10 mg IVP Administration Document 06/16/17 21:19 LA (Rec: 06/16/17 21:19 APURVA [id number]) Charges for Administration # of IVP Administrations 1 - Scribe Statement The provider has reviewed the documentation as recorded by the Scribwili Gilliam Provider Scribe Attestation: All medical record entries made by the Scribe were at my direction and personally dictated by me. I have reviewed the chart and agree that the record accurately reflects my personal performance of the history, physical exam, medical decision making, and the department course for this patient. I have also personally directed, reviewed, and agree with the discharge instructions and disposition. Disposition/Present on Arrival - Present on Arrival Any Indicators Present on Arrival: No History of DVT/PE: No History of Uncontrolled Diabetes: No Urinary Catheter: No History of Decub. Ulcer: No History Surgical Site Infection Following: None - Disposition Have Diagnosis and Disposition been Completed?: Yes Diagnosis: Urinary tract infection, Weakness Disposition: HOSPITALIZED Disposition Time: 23:17 Patient Plan: Observation Condition: FAIR Discharge Instructions (ExitCare): Weakness (ED) Referrals: Caren Hargrove, [Primary Care Provider] - Follow up with primary Forms: [employer] (Somali)
[2017-06-16 19:58] LABS: BASO # 0.05 K/mm3 (0.0-2.0); BASO % 0.5 % (0.0-3.0); EOS # 0.5 (0.0-0.7); EOS % 5.7 % (1.5-5.0); GRAN # 5.93 (1.4-6.5); GRAN % 63.6 % (50.0-68.0); HEMOGLOBIN 12.1 g/dL (12.0-16.0); LYMPH # 2.2 (1.2-3.4); LYMPH % 23.1 % (22.0-35.0); MEAN CORPUSCULAR HEMOGLOBIN 30.3 pg (25.0-35.0); MEAN CORPUSCULAR HGB CONC 31.3 g/dl (31.0-37.0); MEAN PLATELET VOLUME 11.4 fl (7.0-11.0); MONO # 0.7 (0.1-0.6); MONO % 7.1 % (1.0-6.0); RBC 3.99 10^6/uL (3.5-6.1); RED CELL DISTRIBUTION WIDTH 16.2 % (11.5-14.5); WHITE BLOOD COUNT 9.3 10^3/ul (4.5-11.0)
[2017-06-16 20:10] LABS: ALB/GLOB RATIO 1.3 (1.1-1.8); ALBUMIN 4.2 g/dL (3.0-4.8); ALT/SGPT 32 U/L (7-56); AST/SGOT 39 U/L (14-36); BLOOD UREA NITROGEN 29 mg/dL (7-21); CALCIUM 9.7 mg/dL (8.4-10.5); GFR AFRICAN-AMERICAN > 60; GFR NON-AFRICAN AMERICAN 53; HDL CHOLESTEROL 50 mg/dL (29-60)
[2017-06-16 20:15] LABS: INR 0.98 (0.93-1.08); PARTIAL THROMBOPLASTIN TIME 28.5 Seconds (25.1-36.5); PROTHROMBIN TIME 11.2 SECONDS (9.4-12.5)
[2017-06-16 20:20] LABS: LDL CHOLESTEROL 136 mg/dL (0-129); TROPONIN I < 0.01 ng/mL
--- NOTE | 2017-06-16 21:13 | CT ---
EXAM: CT Head Without Intravenous Contrast EXAM DATE/TIME: 06/16/2017 7:23 PM CLINICAL HISTORY: The patient age is 82 years old and is female; Pain; Headache; Headache not specified Facility exam id and description: Ct heads head w/o contrast TECHNIQUE: Axial computed tomography images of the head/brain without intravenous contrast. All CT scans at this facility use one or more dose reduction techniques, viz.: automated exposure control; ma/kV adjustment per patient size (including targeted exams where dose is matched to indication; i.e. head); or iterative reconstruction technique. Coronal and sagittal reformatted images were created and reviewed. COMPARISON: CT - HEAD W/O (CODE STROKE) 2017-03-20 01:21 FINDINGS: Brain: There is a stable hypodense chronic lacunar infarct within the left basal ganglia. There is extensive cerebral white matter hypodensity, likely representing small vessel ischemic disease in a patient this age. The acuity of the white matter disease is indeterminate. The white-mckeon differentiation is preserved demonstrating no acute territorial type infarct. There is moderate prominence of the ventricles and sulci, compatible with atrophy. No acute intracranial hemorrhage is seen. Midline shift: There is no midline shift. Ventricles: See above. Bones/joints: The calvarium demonstrates no evidence for a depressed fracture. Soft tissues: No acute abnormality. Vasculature: There is atherosclerotic calcification of the intracranial internal carotid arteries and distal vertebral arteries. Sinuses: There is mild mucosal thickening of a few anterior ethmoid air cells. Mastoid air cells: No mastoid effusion. Orbits: Bilateral lens implants are visualized. IMPRESSION: 1. No acute intracranial hemorrhage or acute territorial type infarct. 2. There is a stable hypodense chronic lacunar infarct within the left basal ganglia. 3. There is extensive cerebral white matter hypodensity, likely representing small vessel ischemic disease in a patient this age. 4. Moderate atrophy. 5. Paranasal sinus disease is noted above.
[2017-06-16 21:18] LABS: PH,URINE 6.5 (4.7-8.0); URINE BILIRUBIN NEGATIVE (NEGATIVE); URINE BLOOD NEGATIVE (NEGATIVE); URINE GLUCOSE (UA) NEGATIVE (NEGATIVE); URINE LEUKOCYTE ESTERASE SMALL Leu/uL (NEGATIVE); URINE PROTEIN NEGATIVE mg/dL (<30 mg/dL); URINE UROBILINOGEN 0.2 E.U./dL (<1 E.U./dL)
--- NOTE | 2017-06-16 21:20 | CT ---
EXAM: CT Cervical Spine Without Intravenous Contrast EXAM DATE/TIME: 06/16/2017 7:24 PM CLINICAL HISTORY: The patient age is 82 years old and is female; Pain; Neck pain Facility exam id and description: Ct csps cervical spine w/o contrast TECHNIQUE: Axial computed tomography images of the cervical spine without intravenous contrast. All CT scans at this facility use one or more dose reduction techniques, viz.: automated exposure control; ma/kV adjustment per patient size (including targeted exams where dose is matched to indication; i.e. head); or iterative reconstruction technique. Coronal and sagittal reformatted images were created and reviewed. COMPARISON: CT - CERVICAL SPINE W/O CONTRAST 2016-05-11 08:55 FINDINGS: Vertebrae: No acute cervical spine fracture. The cervical lordosis is straightened. There is mild retrolisthesis of C5 on C6. The facet alignment is preserved bilaterally. The occipital condyles and C1-C2 articulations appear intact. Hypertrophic degenerative changes are identified at the junction of the anterior C1 arch and dens process. There is a decrease of disc height at C5-6 and C6-7, with a slight decrease of disc height at C4-5. Significant endplate irregularity is visualized at C5-6 and C6-7. There is malrotation of C1 on C2, which may be positional. Discs/spinal canal/neural foramina: Spondylosis is visualized at multiple cervical levels. Posterior disc herniation/protrusions are visualized from C2-3 through C4-5 with mild narrowing of the thecal sac. There is mild/moderate narrowing of the thecal sac at C5-6, with mild narrowing of the thecal sac at C6-7. Soft tissues: The prevertebral soft tissues appear within normal limits. Vasculature: Atherosclerotic changes are visualized. Lung apices: Within the left upper lobe of the lung on series 2 image 86, there is a 4-5 mm nodule. No pneumothorax. Atelectatic changes identified in the right pulmonary apex. IMPRESSION: 1. No acute cervical spine fracture. 2. The cervical lordosis is straightened. There is mild retrolisthesis of C5 on C6. 3. Spondylosis is visualized at multiple cervical levels. 4. Posterior disc herniation/protrusions are visualized from C2-3 through C4-5 with mild narrowing of the thecal sac. There is mild/moderate narrowing of the thecal sac at C5-6, with mild narrowing of the thecal sac at C6-7. These findings can be further evaluated with MRI. 5. Within the left upper lobe of the lung on series 2 image 86, there is a 4-5 mm nodule. A nonemergent chest CT is recommended.
[2017-06-16 21:23] LABS: URINE APPEARANCE SL CLOUDY (CLEAR); URINE COLOR YELLOW (YELLOW)
[2017-06-16 21:29] LABS: URINE BACTERIA FEW (NEG); URINE RBC NEGATIVE /hpf (0-2)
[2017-06-16] MEDS ORDERED: guaiFENesin 200 mg/10 ml Syrup UD PO STA (21:52)
[2017-06-16] MEDS: Sodium Chloride 0.9% 1,000 ML IV SCH (23:08)
[2017-06-16] MEDS ORDERED: levoFLOXacin 750 mg in D5W 150 ML BAG IVPB STA (23:16)
[2017-06-17] MEDS ORDERED: Iohexol 350 MG/100 ML VIAL ONE ×2 (08:27→12:06)
--- NOTE | 2017-06-17 09:24 | RAD ---
HISTORY: Code Stroke COMPARISON: 03/20/2017 FINDINGS: LUNGS: There are fibrotic changes in the right lung. No focal consolidation. PLEURA: No significant pleural effusion identified, no pneumothorax apparent. CARDIOVASCULAR: There is mild cardiomegaly. There is unfolding of the aorta with OSSEOUS STRUCTURES: No significant abnormalities. VISUALIZED UPPER ABDOMEN: Normal. OTHER FINDINGS: None. IMPRESSION: No active pulmonary disease.
[2017-06-17] MEDS: cefTRIAXone 1 gm 1 GM/100 ML BAG IVPB SCH (09:39)
[2017-06-17] MEDS: Sodium Chloride 0.9% 1,000 ML IV SCH (09:39)
[2017-06-17] MEDS ORDERED: Tiotropium 18 mcg Cap For Inhalation IH SCH (10:00)
[2017-06-17] MEDS: Promethazine 6.25 MG/5 ML CUP PO PRN ×3 (12:06→23:22)
--- NOTE | 2017-06-17 14:13 | CT ---
PROCEDURE: CT Chest with contrast (Pulmonary Angiogram) HISTORY: Shortness of breath COMPARISON: 01/17/2016. TECHNIQUE: Axial computed tomography images were obtained of the chest in the pulmonary arterial phase of enhancement. Coronal and sagittal reformatted images were created and reviewed. Intravenous contrast dose: 100 mL Omnipaque 350 Radiation dose: Total exam DLP = 413.76 MGy-cm. This CT exam was performed using one or more of the following dose reduction techniques: Automated exposure control, adjustment of the mA and/or kV according to patient size, and/or use of iterative reconstruction technique. FINDINGS: PULMONARY ARTERIES: There are no filling defects in the pulmonary arteries to suggest acute embolus. AORTA: No aortic dissection. No thoracic aortic aneurysm. LUNGS: There is confluent airspace disease in the left base. There is redemonstration of a 1.7 cm nodule with central calcification in the posterior segment of the right lobe. (Series 4, image 36), not significantly changed since the prior examination there are postsurgical changes in the right hilum and fibrotic changes in the right upper lobe.. There is a 5 mm nodule in the left upper lobe (series 4, image 27) and a 3 mm nodule in the peripheral left upper lobe (series 4, image 44), and there is a 4 mm nodule in the left lower lobe. (Series 4, image 75). There is multifocal subsegmental atelectasis in the lungs. There are no endobronchial lesions. PLEURAL SPACES: There is interval development of several scattered subpleural nodules, the largest in the right upper lobe measures 10 mm. There are small pleural effusions. No pneuomothorax. HEART: There is mild cardiomegaly. No significant pericardial effusion. LYMPH NODES: No pathologic lymphadenopathy. BONES, CHEST WALL: No destructive bony lesion. No acute fracture OTHER FINDINGS: Unremarkable. IMPRESSION: 1. No CTA evidence for acute pulmonary embolism, aortic aneurysm or aortic dissection. 2. Postsurgical changes in the right upper lobe with stable 1.7 nodule with presumable central calcification in the posterior segment of the right upper lobe. Small pleural effusions. 3. New at least 3 subcentimeter nodules in the left lung, the largest in the upper lobe measures 5 mm. Interval development of subpleural nodules, the largest in the right upper lobe measure 10 mm. These findings are concerning for metastatic lesions. Correlation with CT for further characterization of subpleural nodules is recommended. The small lung nodules may be too small to characterize on PET and short-term interval follow-up is advised.
--- NOTE | 2017-06-17 17:56 | CARD ---
APPROVED REPORT EKG Measurement Heart [id number] <Conclusion> Sinus bradycardia with 1st degree AV block Incomplete right bundle branch block Borderline ECG
--- NOTE | 2017-06-17 18:32 | HP ---
DATE OF EXAM: HISTORY OF PRESENT ILLNESS: An 82-year-old white female with history of bilateral knee surgeries and hip surgery, chronic back pain, chronic neck pain, multiple episodes of urinary tract infection in the past. The patient had fallen in her house after being weak and was also found to have some polyuria and dysuria, came to the emergency room, was found to have a urinary tract infection. Temperature of 99.9, heart rate of 102, blood pressure of 101/56. White count of 9.3. Urine was positive for pyuria and bacteriuria. The patient did have x-rays and CT of the neck showing severe degenerative joint disease and herniated discs at C2-C3, with straightening of the normal lordosis of the cervical spine. The patient was started on IV antibiotics and admitted. The patient also is markedly short of breath and also has gained weight over the last several weeks. Her fall happened at the night of admission. She had been complaining of some dysuria and frequency over the last 4 to 5 days. She is a nondrinker and nonsmoker. She is seen at home by [facility] for outpatient geriatric care. She also has had long history of dependence on some pain medication and some sleep medication. PHYSICAL EXAMINATION: GENERAL: Shows a well-developed, but obese white female with mild respiratory distress. HEENT: Essentially within normal limits. HEART: Regular sinus rhythm. No S3 or murmurs. CHEST: Shows decreased breath sounds, but clear to both bases. ABDOMEN: Obese, but benign. EXTREMITIES: No cyanosis, clubbing or edema. There is severe degenerative changes of the knees and hips and tenderness on palpation of the spine. IMPRESSION AND PLAN: Urinary tract infection, recent fall, tachypnea, tachycardia, rule out pulmonary embolism. CT of PE protocol ordered. IV antibiotics for urinary tract infection and evaluation of her balance and ambulatory status. Isauro Hudson MD
[2017-06-17] MEDS: Benzocaine/Menthol (Cepacol) Lozenge MT PRN (22:11)
[2017-06-18] MEDS: Benzocaine/Menthol (Cepacol) Lozenge MT PRN ×5 (00:09→17:28)
[2017-06-18] MEDS: Promethazine 6.25 MG/5 ML CUP PO PRN ×3 (05:10→17:31)
[2017-06-18 06:50] LABS: HEMOGLOBIN 11.3 g/dL (12.0-16.0); MEAN CELL VOLUME 95.2 fl (80.0-105.0); MEAN CORPUSCULAR HGB CONC 31.5 g/dl (31.0-37.0); MEAN PLATELET VOLUME 11.3 fl (7.0-11.0); RBC 3.77 10^6/uL (3.5-6.1); RED CELL DISTRIBUTION WIDTH 16.7 % (11.5-14.5); WHITE BLOOD COUNT 6.3 10^3/ul (4.5-11.0)
[2017-06-18] MEDS: cefTRIAXone 1 gm 1 GM/100 ML BAG IVPB SCH (09:45)
[2017-06-18] MEDS: Sodium Chloride 0.9% 1,000 ML IV SCH (09:45)
--- NOTE | 2017-06-18 10:01 | PN ---
DATE: SUBJECTIVE: An 82-year-old white female, admitted to the hospital after a fall, urinary tract infection. Also, recently had a flu. Now is coughing. She was short of breath yesterday. CT angiogram was negative. PHYSICAL EXAMINATION: LUNGS: The patient has rhonchi and rales, particularly in the right apex. ABDOMEN: Obese, but benign. EXTREMITIES: Without cyanosis, clubbing or edema. VITAL SIGNS: The patient is afebrile today. LABORATORY DATA: White count of 6.3. IMPRESSION: Exacerbation of recent influenza, urinary tract infection and status post fall. Isauro Hudson MD
[2017-06-18] MEDS: Albuterol-Ipratrop 3 mg / 0.5 (3 ml) UD IH SCH ×3 (13:15→21:48)
[2017-06-18] MEDS ORDERED: Iohexol 350 MG/100 ML VIAL ONE (13:27)
--- NOTE | 2017-06-18 14:34 | CT ---
PROCEDURE: CT Abdomen and Pelvis with contrast HISTORY: eval for malignancy setting of lung nodules COMPARISON: None. TECHNIQUE: Contrast dose: 100 cc of Omni 350 Radiation dose: Total exam DLP = 936 mGy-cm. This CT exam was performed using one or more of the following dose reduction techniques: Automated exposure control, adjustment of the mA and/or kV according to patient size, and/or use of iterative reconstruction technique. FINDINGS: LOWER THORAX: Unremarkable. LIVER: Unremarkable. No gross lesion or ductal dilatation. GALLBLADDER AND BILE DUCTS: Gallbladder removed PANCREAS: Unremarkable. No gross lesion or ductal dilatation. SPLEEN: Unremarkable. ADRENALS: Unremarkable. No mass. KIDNEYS AND URETERS: Unremarkable. No hydronephrosis. No solid mass. VASCULATURE: Unremarkable. No aortic aneurysm. BOWEL: Unremarkable. No obstruction. No gross mural thickening. APPENDIX: Normal appendix. PERITONEUM: Unremarkable. No free fluid. No free air. LYMPH NODES: Unremarkable. No enlarged lymph nodes. BLADDER: Unremarkable. REPRODUCTIVE: Unremarkable. BONES: Disc degeneration. No evidence of metastatic disease. OTHER FINDINGS: None. IMPRESSION: No evidence of malignancy
[2017-06-19] MEDS: Albuterol-Ipratrop 3 mg / 0.5 (3 ml) UD IH SCH ×4 (01:59→19:19)
[2017-06-19] MEDS: Sodium Chloride 0.9% 1,000 ML IV SCH ×2 (02:22→14:56)
[2017-06-19] MEDS: Benzocaine/Menthol (Cepacol) Lozenge MT PRN ×2 (05:00→21:35)
[2017-06-19] MEDS: Promethazine 6.25 MG/5 ML CUP PO PRN ×3 (05:00→21:35)
[2017-06-19 06:39] LABS: ALB/GLOB RATIO 1.1 (1.1-1.8); ALBUMIN 3.3 g/dL (3.0-4.8); ALT/SGPT 39 U/L (7-56); AST/SGOT 76 U/L (14-36); BLOOD UREA NITROGEN 17 mg/dL (7-21); CALCIUM 8.5 mg/dL (8.4-10.5); GFR AFRICAN-AMERICAN > 60; GFR NON-AFRICAN AMERICAN > 60
[2017-06-19 06:57] LABS: HEMOGLOBIN 11.5 g/dL (12.0-16.0); MEAN CELL VOLUME 95.6 fl (80.0-105.0); MEAN CORPUSCULAR HEMOGLOBIN 29.6 pg (25.0-35.0); MEAN PLATELET VOLUME 11.4 fl (7.0-11.0); RBC 3.88 10^6/uL (3.5-6.1); RED CELL DISTRIBUTION WIDTH 16.9 % (11.5-14.5); WHITE BLOOD COUNT 5.9 10^3/ul (4.5-11.0)
[2017-06-19] MEDS: cefTRIAXone 1 gm 1 GM/100 ML BAG IVPB SCH (09:29)
[2017-06-19 09:56] LABS: BASO # 0.03 K/mm3 (0.0-2.0); BASO % 0.6 % (0.0-3.0); EOS % 0.2 % (1.5-5.0); GRAN # 3.05 (1.4-6.5); GRAN % 59.2 % (50.0-68.0); HEMOGLOBIN 10.6 g/dL (12.0-16.0); LYMPH # 1.4 (1.2-3.4); LYMPH % 27.2 % (22.0-35.0); MEAN CELL VOLUME 94.6 fl (80.0-105.0); MEAN CORPUSCULAR HEMOGLOBIN 30.1 pg (25.0-35.0); MEAN CORPUSCULAR HGB CONC 31.8 g/dl (31.0-37.0); MEAN PLATELET VOLUME 10.8 fl (7.0-11.0); MONO # 0.7 (0.1-0.6); MONO % 12.8 % (1.0-6.0); RBC 3.52 10^6/uL (3.5-6.1); RED CELL DISTRIBUTION WIDTH 16.7 % (11.5-14.5); WHITE BLOOD COUNT 5.2 10^3/ul (4.5-11.0)
--- NOTE | 2017-06-19 19:34 | PN ---
DATE: SUBJECTIVE: An 82-year-old white female with history of lung CA in the past, treated with radiation and chemotherapy. The patient was admitted to the hospital with weakness and fatigue, was found to have lung nodules bilaterally, one of them is at least [address] of the abdomen and pelvis was negative. The patient has some loose stool, C. diff. is pending. She also has urinary tract infection, she is on IV antibiotics. She had recently had an episode of weakness and a fall. PLAN: To get an Oncology consult for her lung nodule, going to check for C. diff. Continue IV antibiotics for urinary tract infection and start physical therapy. Isauro Hudson MD
[2017-06-19] MEDS: MethylPREDNISolone 40 mg Vial IVP SCH (21:27)
[2017-06-20] MEDS: Albuterol-Ipratrop 3 mg / 0.5 (3 ml) UD IH SCH ×4 (01:11→19:11)
--- NOTE | 2017-06-20 04:35 | CON ---
DATE: PULMONARY CONSULTATION REFERRING PHYSICIAN: Dr. Hudson. REASON FOR CONSULTATION: Cough, shortness of breath, lung nodule, may have sleep apnea syndrome. HISTORY OF PRESENT ILLNESS: This is an 82-year-old female with known history of hypertension, hyperlipidemia, chronic obstructive lung disease, obesity, came into emergency room with headache, cough, shortness of breath, muscular-type chest pain. No nausea, no vomiting. No diarrhea. No leg pain or leg swelling. 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 There is also history of lung cancer, had been on chemotherapy, history of GERD, coronary artery disease with coronary stent, history of left ankle surgery. FAMILY HISTORY: No significant cardiopulmonary disease reported. SOCIAL HISTORY: Has a history of passive smoking. No active smoking. ALLERGIES: NONE KNOWN. MEDICATIONS: She is on Aricept 5 mg at bedtime, aspirin 81 mg daily, Cepacol lozenges q. 2 hours p.r.n., Colace 100 mg twice a day, DuoNeb q. 6 hours, folic acid 1 mg daily, atorvastatin 10 mg daily, metoprolol tartrate 25 mg twice a day, Pepcid 20 mg daily, Phenergan 6.25 mg q. 6 hours p.r.n., Rocephin 1 g daily, IV fluid normal saline 100 mL per hour, Tylenol p.r.n. basis, Zestril 5 mg daily, Zofran p.r.n. basis. REVIEW OF SYSTEMS: No headache. Has some rhinitis, cough, not much sputum production. No chest pain. No nausea, no vomiting. No diarrhea. Has some leg swelling. Admit to have snoring, daytime sleepy and tired. PHYSICAL EXAMINATION: GENERAL: Lying in the bed, in mild distress secondary to cough and shortness of breath. VITAL SIGNS: Temperature is 98, heart rate 85, respiratory is 20, blood pressure 149/68, pulse ox of 94% on 2 liters nasal cannula. HEENT: Moist mucous membrane. Crowded airway. Mallampati score is IV. NECK: Supple. No JVD. LUNGS: Has a prolonged expiratory phase with scattered rhonchi and wheezing. HEART: S1 and S2. ABDOMEN: Soft, nontender. No organomegaly. EXTREMITIES: Some edema. NEUROLOGIC: Awake and alert, follows simple command. LABORATORY DATA: Shows hemoglobin and 10.6, hematocrit 33.3, WBC 5.2, platelet is 160. INR is 0.98. PTT 29. Sodium 142, potassium 4.2, chloride 109, bicarbonate 23, BUN 17, creatinine 0.8, glucose 118, calcium is 8.5, total bili 0.4, AST 76, ALT 39, alk phos is 81. Albumin is 3.3. Carcinoembryonic antigen is 5.2. Urinalysis shows wbc 10 to 15, rbc is negative. Influenza A and B are negative. Microbiology, blood culture and urine culture have been negative. CAT scan of the head was done on admission, which showed for acute intracranial hemorrhage or acute territorial-type infarct. Paranasal sinus disease is noted, also has a cervical CT scan done, which showed no acute cervical spine fracture, cervical lordosis is straightened, mild retrolisthesis of C5 and C6, spondylitis is visualized on multiple cervical level. She had a CT scan of the chest done, which shows no CT evidence of pulmonary embolism or aortic dissection. Postsurgical changes noted in the right upper lobe and there is stable 1.7-cm nodule with central calcification in the posterior segment of the right upper lobe and small effusion. There is a small nodule noted of the left lung, largest one is 10-mm. This is in right upper lobe area. CT of the abdomen and pelvis is unremarkable. IMPRESSION AND PLAN: Exacerbation of chronic obstructive lung disease; history of lung cancer in 2014, treated with chemotherapy; also have a coronary artery disease with coronary stents; history of stroke; obesity; may have sleep apnea syndrome; anemia, right hip prosthesis. I agree with Dr. Hudson with the present management. We will add intravenous and inhaled bronchodilator, keep head at 45 degrees. Gastric prophylaxis, deep venous thrombosis prophylaxis. We will need PET scan as an outpatient upon discharge, also suggest pulmonary function test as an outpatient, sleep study as outpatient. Thank you and we will follow with you. Zhanna Rasmussen MD [facility] # [id number]
[2017-06-20 06:20] LABS: HEMOGLOBIN 11.7 g/dL (12.0-16.0); MEAN CELL VOLUME 95.2 fl (80.0-105.0); MEAN CORPUSCULAR HEMOGLOBIN 29.6 pg (25.0-35.0); MEAN CORPUSCULAR HGB CONC 31.1 g/dl (31.0-37.0); MEAN PLATELET VOLUME 11.4 fl (7.0-11.0); RBC 3.95 10^6/uL (3.5-6.1); RED CELL DISTRIBUTION WIDTH 16.5 % (11.5-14.5); WHITE BLOOD COUNT 4.4 10^3/ul (4.5-11.0)
[2017-06-20 07:13] LABS: URINE BILIRUBIN NEGATIVE (NEGATIVE); URINE BLOOD NEGATIVE (NEGATIVE); URINE GLUCOSE (UA) NEGATIVE (NEGATIVE); URINE LEUKOCYTE ESTERASE NEGATIVE Leu/uL (NEGATIVE); URINE PROTEIN NEGATIVE mg/dL (<30 mg/dL); URINE UROBILINOGEN 0.2 E.U./dL (<1 E.U./dL)
[2017-06-20 07:17] LABS: URINE APPEARANCE CLEAR (CLEAR); URINE COLOR YELLOW (YELLOW)
[2017-06-20] MEDS: cefTRIAXone 1 gm 1 GM/100 ML BAG IVPB SCH (10:02)
[2017-06-20] MEDS: Enoxaparin 40 mg Syringe SC SCH (10:02)
[2017-06-20] MEDS: MethylPREDNISolone 40 mg Vial IVP SCH ×2 (10:03→21:51)
--- NOTE | 2017-06-20 15:29 | PN ---
DATE: SUBJECTIVE: An 82-year-old white female admitted to the hospital with cough; urinary tract infection; status post fall; weakness; history of lung CA; multiple lung nodules, possibly new. Dr. Rasmussen's consult is appreciated. Patient will have an outpatient CT/PET to evaluate the nodules. Patient has less cough today. PHYSICAL EXAMINATION CHEST: Clear to auscultation. VITAL SIGNS: She is afebrile. Stable. PLAN: Patient will be started on physical therapy and also will be transferred to TCU if appropriate. Physical examination is unchanged. Isauro Hudson MD
[2017-06-20] MEDS: Promethazine 6.25 MG/5 ML CUP PO PRN (15:34)
[2017-06-20 18:08] VITALS: O2SAT 95
--- NOTE | 2017-06-20 23:50 | PN ---
DATE: 06/20/2017 PULMONARY PROGRESS NOTE REFERRING PHYSICIAN: Isauro Hudson MD. SUBJECTIVE: She is lying in the bed, head at 45 degrees. Feels much better. Decreased cough. Decreased shortness of breath. No nausea. No vomiting. No diarrhea. No leg pain or leg swelling. OBJECTIVE: GENERAL: In no acute distress. VITAL SIGNS: Temperature is 98, heart rate 74, respiratory rate is 18, blood pressure 148/71, pulse ox 95% on 2 L nasal cannula. HEENT: Moist mucous membrane. Crowded airway. Mallampati score is 4. NECK: Supple. No JVD. LUNGS: Have a prolonged expiratory phase with scattered rhonchi. HEART: S1 and S2. ABDOMEN: Soft, nontender. No organomegaly. EXTREMITIES: There is no edema. NEUROLOGICAL: Awake, alert. Follows simple command. MEDICATIONS: She is on Aricept 5 mg at bedtime, aspirin 81 mg daily, Cepacol lozenges q. 2 hours p.r.n., Colace 100 mg twice a day, DuoNeb q. 6 hours, folic acid 1 mg daily, Lipitor 10 mg daily, metoprolol tartrate is 75 mg twice a day, Lovenox 40 mg subcu daily, Pepcid 20 mg daily, promethazine 6.25 mg q. 6 hours p.r.n., Rocephin 1 g IV daily, Solu-Medrol 40 mg q.12 hours., Tylenol p.r.n. basis, Zestril 5 mg daily, Zofran p.r.n. basis. LABORATORY DATA: Shows hemoglobin 11.7, hematocrit 37.6, WBC 4.4, platelet is 176. Blood sugar is 129. Microbiology, blood culture, urine culture, there is no growth. IMPRESSION AND PLAN: Exacerbation of chronic obstructive lung disease; history of lung cancer, treated with chemotherapy; coronary artery disease; history of coronary stent; history of stroke; obesity; may have sleep apnea syndrome; anemia; right hip prosthesis; has multiple lung nodules. Pulmonary point of view, she is doing okay. We will continue antibiotics. Keep head at 45 degrees, IV steroids, aspiration precaution. Need followup x-ray until the clearance of pulmonary nodule. May need followup PET scan to assure the stability of previous malignancy. Out of bed to chair if possible. Physical therapy. Thank you and we will follow with you. Zhanna Rasmussen MD [facility] # [id number]
[2017-06-21] MEDS: Promethazine 6.25 MG/5 ML CUP PO PRN (00:53)
[2017-06-21] MEDS: Albuterol-Ipratrop 3 mg / 0.5 (3 ml) UD IH SCH ×3 (01:09→13:24)
[2017-06-21 08:26] VITALS: BP 141/74; PULSE 70; RESP 22; TEMP 98.2
[2017-06-21] MEDS: Enoxaparin 40 mg Syringe SC SCH (09:38)
[2017-06-21] MEDS: Benzocaine/Menthol (Cepacol) Lozenge MT PRN (09:38)
[2017-06-21] MEDS: MethylPREDNISolone 40 mg Vial IVP SCH (09:38)
[2017-06-21] MEDS ORDERED: Cefpodoxime (Vantin) 200 mg Tab PO SCH (10:00)
[2017-06-21] MEDS ORDERED: guaiFENesin-Codeine 100-10mg/5ml Syrup (5 ml) UD PO PRN (10:08)
--- NOTE | 2017-06-21 11:15 | PN ---
DATE: An 82-year-old white female with a fall, weakness, urinary tract infection, lung nodules, history of lung CA in the past. The patient is doing physical therapy and occupational therapy, will be looking for transfer to possible TCU, to continue her treatment for recent fall and weakness and continue treatment for urinary tract infection. She is afebrile. Vital signs are stable. White count is 4.4. Physical examination is unchanged. Isauro Hudson MD
== END 2017-06-21 14:21 | DRG 690 ==
LOC: ED 18:52 → ERH 23:17 → 3RNO 06-17 01:15 → OBSVTOIN 06-17 14:35
PROVIDERS: ADMIT Internal Medicine; ATTEND Internal Medicine
PROC: 3E0F7GC Introduction of Other Therapeutic Substance into Respiratory Tract, Via Natural or Artificial Opening (ICD-10-PCS; principal; 2017-06-18)
DX: N39.0 Urinary tract infection, site not specified (principal); J44.1 Chronic obstructive pulmonary disease with (acute) exacerbation; M50.221 Other cervical disc displacement at C4-C5 level; E78.5 Hyperlipidemia, unspecified; I10 Essential (primary) hypertension; F03.90 Unspecified dementia, unspecified severity, without behavioral disturbance, psychotic disturbance, mood disturbance, and anxiety; G89.29 Other chronic pain; I25.10 Atherosclerotic heart disease of native coronary artery without angina pectoris; K21.9 Gastro-esophageal reflux disease without esophagitis; M47.812 Spondylosis without myelopathy or radiculopathy, cervical region; E66.9 Obesity, unspecified; M25.512 Pain in left shoulder; H54.7 Unspecified visual loss; Z91.81 History of falling; Z86.73 Personal history of transient ischemic attack (TIA), and cerebral infarction without residual deficits; Z87.440 Personal history of urinary (tract) infections; Z85.118 Personal history of other malignant neoplasm of bronchus and lung; Z95.5 Presence of coronary angioplasty implant and graft; Z92.3 Personal history of irradiation; Z92.21 Personal history of antineoplastic chemotherapy

== ENCOUNTER 2017-06-21 14:21 | Inpatient (IN) | payer OTHER, BC ==
[2017-06-21 16:38] VITALS: BMI 32.5
[2017-06-21] MEDS ORDERED: Pneumococcal 23-Valent Vaccine IM ONE (17:50)
[2017-06-21] MEDS ORDERED: Influenza Vaccine 60 mcg/0.5 mL SYR (4YR UP) IM ONE (17:50)
[2017-06-21] MEDS: Lidocaine 5% Patch TD SCH (18:06)
[2017-06-21] MEDS: Albuterol-Ipratrop 3 mg / 0.5 (3 ml) UD IH SCH (20:27)
[2017-06-21] MEDS: MethylPREDNISolone 40 mg Vial IVP SCH (21:23)
[2017-06-21] MEDS: Cefpodoxime (Vantin) 200 mg Tab PO SCH (21:24)
[2017-06-21] MEDS: Promethazine 6.25 MG/5 ML CUP PO PRN (21:24)
[2017-06-21] MEDS: Benzocaine/Menthol (Cepacol) Lozenge MT PRN (21:33)
[2017-06-21] MEDS ORDERED: Cefpodoxime (Vantin) 100 mg Tab PO SCH (22:00)
[2017-06-22] MEDS: Benzocaine/Menthol (Cepacol) Lozenge MT PRN ×2 (00:08→21:43)
[2017-06-22] MEDS: guaiFENesin-Codeine 100-10mg/5ml Syrup (5 ml) UD PO PRN (00:08)
[2017-06-22] MEDS: Albuterol-Ipratrop 3 mg / 0.5 (3 ml) UD IH SCH ×4 (01:30→21:25)
[2017-06-22] MEDS: Enoxaparin 40 mg Syringe SC SCH (05:29)
--- NOTE | 2017-06-22 07:51 | RAD ---
PROCEDURE: Radiographs of the Chest and Left Ribs. HISTORY: pain on left side r/o fx COMPARISON: Chest radiograph 06/16/2017.. TECHNIQUE: Frontal radiograph of the chest and multiple oblique radiographs of the left ribs were obtained. FINDINGS: LEFT RIBS: No fracture or focal lesion visualized. LUNGS: No acute infiltrate identified as imaged. The right costophrenic sulcus is been excluded from this exam. Repeat radiography advised as indicated. PLEURA: No pneumothorax or pleural fluid. CARDIOVASCULAR: Normal sized heart. No pulmonary vascular congestion. OTHER FINDINGS: None. IMPRESSION: Unremarkable radiographs of the chest (as imaged) and left ribs. No left rib fracture.
--- NOTE | 2017-06-22 08:11 | CON ---
DATE: 06/21/2017 PULMONARY CONSULTATION REFERRING PHYSICIAN: Dr. Hudson. REASON FOR CONSULTATION: Chronic lung disease, pulmonary infiltrate, history of lung cancer. HISTORY OF PRESENT ILLNESS: This is an 82-year-old female with multiple medical issues including hypertension, hyperlipidemia, chronic obstructive lung disease, obesity, may have sleep apnea syndrome, history of TIAs. Past medical history significant for stroke, history of retinal detachment in the past, GERD, coronary artery disease, history of coronary stent, came in on acute side of the hospital with cough and shortness of breath. She has multiple pulmonary infiltrates on the x-rays, treated with IV antibiotics, also started on IV and inhaled bronchodilator with some benefit, today transferred to for continued care, has left-sided pleuritic-type pain. Still has a cough, clear sputum. No nausea. No vomiting, diarrhea, leg pain or leg swelling. PAST MEDICAL HISTORY: As per history present illness. ALLERGIES: NONE KNOWN. SOCIAL HISTORY: History of passive smoking. Yuriy any alcohol use. FAMILY HISTORY: No significant cardiopulmonary disease reported. MEDICATIONS: She is on Aricept 5 mg at bedtime, aspirin 81 mg daily, Cepacol lozenges q. 2 hours p.r.n., Colace 100 mg twice a day, DuoNeb q. 6 hours, folic acid 1 mg daily, Lidoderm patch daily, Lipitor 10 mg daily, metoprolol tartrate 25 mg twice a day, Lovenox 40 mg daily, Motrin 600 mg q. 6 hours, Pepcid 20 mg daily, promethazine 6.25 mg q. 6 hours p.r.n., Robitussin with codeine 5 mL q. 4 hours p.r.n., Solu-Medrol 40 mg twice a day, Tylenol p.r.n., Vantin 200 mg q. 12 hours., Zestril 5 mg daily, Zofran p.r.n. basis. REVIEW OF SYSTEMS: No headache, no rhinitis. Has cough and shortness of breath, left-sided pleuritic pain. No nausea, no abdominal pain. No dysuria. No leg pain or leg swelling. PHYSICAL EXAMINATION: GENERAL: Lying in the bed, mild distress secondary to left-sided pleuritic pain. VITAL SIGNS: Temperature is 98, heart rate 69, respiratory rate is 18, blood pressure 131/78, pulse ox 95% on 2 liters nasal cannula. HEENT: Moist mucous membrane. Crowded airway. NECK: Supple. No JVD. LUNGS: Have a few scattered rhonchi and wheezing. Left-sided axillary area tender to palpation. HEART: S1 and S2. ABDOMEN: Soft, nontender, no organomegaly. EXTREMITIES: No edema. NEUROLOGIC: Awake and alert, follows simple commands. LABORATORY DATA: Shows hemoglobin 11.7, hematocrit 37.6, WBC 4.4, platelet count is 176. Sodium 133. Microbiology, blood culture and urine culture have been negative. IMPRESSION AND PLAN: Exacerbation of chronic obstructive lung disease; history of lung cancer, treated with chemotherapy in the past; coronary artery disease; history of coronary stent; history of stroke; obesity; may have sleep apnea syndrome; anemia; history of right hip fracture; multiple lung nodules. Rule out rib fracture on the left side. We will order rib series, may give Motrin p.r.n. basis, lidocaine patch at affected area. Continue IV and inhaled bronchodilator. Continue antibiotics. Gastric prophylaxis, deep venous thrombosis prophylaxis. Will need further Oncology workup including PET scan as outpatient. Thank you and we will follow with you. Zhanna Rasmussen MD
[2017-06-22] MEDS: Lidocaine 5% Patch TD SCH (10:51)
[2017-06-22] MEDS: MethylPREDNISolone 40 mg Vial IVP SCH ×2 (10:55→21:41)
[2017-06-22] MEDS: Cefpodoxime (Vantin) 200 mg Tab PO SCH ×2 (11:49→21:41)
[2017-06-22] MEDS: Oxycodone/Acetaminophen 5/325 mg Tab PO PRN ×2 (12:54→21:41)
[2017-06-23] MEDS: Albuterol-Ipratrop 3 mg / 0.5 (3 ml) UD IH SCH ×4 (02:00→19:29)
[2017-06-23] MEDS: Enoxaparin 40 mg Syringe SC SCH (05:47)
[2017-06-23] MEDS: Oxycodone/Acetaminophen 5/325 mg Tab PO PRN ×2 (05:47→13:29)
[2017-06-23] MEDS: Benzocaine/Menthol (Cepacol) Lozenge MT PRN ×2 (05:49→09:09)
[2017-06-23] MEDS: Lidocaine 5% Patch TD SCH (09:09)
[2017-06-23] MEDS: MethylPREDNISolone 40 mg Vial IVP SCH ×2 (09:10→21:27)
--- NOTE | 2017-06-23 12:48 | PN ---
DATE: SUBJECTIVE: This is an 82-year-old white female, transferred to [facility] TCU. The patient is doing well except for complaining of severe bilateral neck and shoulder pain. The patient received some Percocet yesterday. She received physical therapy and occupational therapy today. She is finishing a course of antibiotics for urinary tract infection. She has a long history of severe degenerative arthritis, multiple falls. She can do physical therapy to strengthen her lower body and also to prevent falls. Vital signs are stable. She is stable. I will repeat labs. We will continue Percocet and her antibiotics for urinary tract infection. Isauro Hudson MD
[2017-06-23] MEDS: guaiFENesin-Codeine 100-10mg/5ml Syrup (5 ml) UD PO PRN (13:29)
--- NOTE | 2017-06-23 15:24 | PN ---
DATE: 06/23/2017 PULMONARY PROGRESS NOTE REFERRING PHYSICIAN: Isauro Hudson MD. SUBJECTIVE: She is lying in the bed, head at 45 degrees. Still has cough. Left-sided pleural pain. No nausea. No vomiting, diarrhea, leg pain, leg swelling. OBJECTIVE: GENERAL: In no acute distress. VITAL SIGNS: Temperature is 98, heart rate is 57, respiratory rate is 20, blood pressure 141/64, pulse ox 93% on room air. HEENT: Moist mucous membrane. Crowded airway. Mallampati score is 4. NECK: Supple. No JVD. LUNGS: Have a scattered rhonchi and few wheezing. HEART: S1 and S2. ABDOMEN: Soft, nontender. No organomegaly. EXTREMITIES: No edema. NEUROLOGICAL: Awake and alert. Follows simple command. LABORATORY DATA: Showed blood sugar this morning 153. Rib series shows unremarkable radiographic of the chest. Left ribs, no left rib fracture. MEDICATIONS: She is on Aricept 5 mg at bedtime, aspirin 81 mg daily, Cepacol lozenges q. 2 hours p.r.n., Colace 100 mg twice a day, DuoNeb q. 6 hours, folic acid 1 mg daily, lidocaine patch at affected area, Lipitor 10 mg daily, metoprolol tartrate 25 mg twice a day, Lovenox is 40 mg subcu daily, Motrin is at 600 mg q. 6 hours p.r.n., Pepcid 20 mg daily, Percocet 5/325 one tab q. 8 hours p.r.n., Phenergan 6.25 mg q. 6 hours p.r.n., Robitussin with Codeine 5 mL q. 4 hours p.r.n., Solu-Medrol 40 mg q. 12 hours, Tylenol p.r.n., Zestril 5 mg daily, Zofran p.r.n. basis. IMPRESSION AND PLAN: Exacerbation of chronic obstructive lung disease; history of lung cancer, treated with chemotherapy and radiation therapy about 4-5 years ago; coronary artery disease; history of coronary stent; history of stroke; obesity; may have sleep apnea syndrome; history of hip fracture; multiple lung nodules; has a left-sided pleuritic-type pain, most seems like muscular. Rib series have been negative. We will continue IV and inhaled bronchodilator. Getting pain management. Out of bed to chair, physical therapy. Will need malignancy recurrent workup as outpatient upon discharge. Thank you and we will follow with you. Zhanna Rasmussen MD
--- NOTE | 2017-06-23 16:23 | PN ---
DATE: 06/22/2017 SUBJECTIVE: An 82-year-old white female transferred from [facility] TCU for continued physical therapy and occupational therapy, treatment of urinary tract infection, chronic , lung nodules, history of lung CA and a recent history of a fall. The patient is doing well. Just complaining of some increased left shoulder and arm pain, which she has had in the past with degenerative arthritis and neck pain. She is doing physical therapy, occupational therapy. She is afebrile. Vital signs are stable. Plan is to continue on antibiotics for her urinary tract infection and continue treatment with physical therapy. Isauro Hudson MD
[2017-06-24] MEDS: Albuterol-Ipratrop 3 mg / 0.5 (3 ml) UD IH SCH ×4 (03:00→19:39)
[2017-06-24] MEDS: Enoxaparin 40 mg Syringe SC SCH (05:34)
[2017-06-24 06:19] LABS: BASO # 0.01 K/mm3 (0.0-2.0); BASO % 0.2 % (0.0-3.0); GRAN # 3.53 (1.4-6.5); GRAN % 68.2 % (50.0-68.0); LYMPH # 1.1 (1.2-3.4); LYMPH % 20.8 % (22.0-35.0); MEAN CELL VOLUME 93.8 fl (80.0-105.0); MEAN CORPUSCULAR HEMOGLOBIN 29.6 pg (25.0-35.0); MEAN CORPUSCULAR HGB CONC 31.5 g/dl (31.0-37.0); MEAN PLATELET VOLUME 11.1 fl (7.0-11.0); MONO # 0.6 (0.1-0.6); MONO % 10.8 % (1.0-6.0); RBC 3.38 10^6/uL (3.5-6.1); WHITE BLOOD COUNT 5.2 10^3/ul (4.5-11.0)
[2017-06-24 07:19] LABS: ALB/GLOB RATIO 1.2 (1.1-1.8); ALBUMIN 3.2 g/dL (3.0-4.8); ALT/SGPT 47 U/L (7-56); AST/SGOT 51 U/L (14-36); BLOOD UREA NITROGEN 26 mg/dL (7-21); CALCIUM 9.1 mg/dL (8.4-10.5); GFR AFRICAN-AMERICAN > 60; GFR NON-AFRICAN AMERICAN > 60
[2017-06-24] MEDS: Promethazine 6.25 MG/5 ML CUP PO PRN (08:21)
[2017-06-24] MEDS: Oxycodone/Acetaminophen 5/325 mg Tab PO PRN ×2 (08:24→18:30)
[2017-06-24] MEDS: Lidocaine 5% Patch TD SCH (09:26)
[2017-06-24] MEDS: MethylPREDNISolone 40 mg Vial IVP SCH (09:27)
--- NOTE | 2017-06-24 15:16 | PN ---
DATE: SUBJECTIVE: An 82-year-old white female admitted to the hospital with urinary tract infection, fall, confusion, disorientation, back and shoulder pain. Patient is afebrile. OBJECTIVE VITAL SIGNS: Stable, 121/70 blood pressure, 98 temperature. LUNGS: Clear to auscultation and percussion. HEART: Regular sinus rhythm. EXTREMITIES: No cyanosis, clubbing or edema. LABORATORY DATA: Unremarkable. Patient is doing physical therapy and occupational therapy. She is still taking donepezil, aspirin, docusate, DuoNeb, folic acid, Lipitor, metoprolol, Lovenox, ibuprofen p.r.n., famotidine, Percocet p.r.n., promethazine. She is going to be weaned from the methylprednisolone, change it to p.o. prednisone. She is on lisinopril, Zofran. Patient is 82, we will discontinue her atorvastatin. Her Microbiology showed Enterococcus faecalis in the urine and corynebacterium. Most recent cultures are less than 50,000. Physical examination is unchanged. Patient is doing physical therapy and occupational therapy. She is still having some cough. Her chest x-ray is clear. PLAN: To continue physical therapy and get occupational therapy and she will be discharged in the next two to three days. Isauro Hudson MD
[2017-06-24] MEDS: guaiFENesin-Codeine 100-10mg/5ml Syrup (5 ml) UD PO PRN (21:46)
--- NOTE | 2017-06-24 23:59 | PN ---
DATE: 06/24/2017 PULMONARY PROGRESS NOTE REFERRING PHYSICIAN: Isauro Hudson MD. SUBJECTIVE: The patient is lying in the bed, head at 45 degrees. Night was unremarkable. Cough is a little better. Still having left-sided muscular-type pain. No nausea. No vomiting, diarrhea, leg pain, leg swelling. OBJECTIVE: GENERAL: In no acute distress. VITAL SIGNS: Temp is 98, heart rate is 76, respiratory rate is 20, blood pressure 135/65, pulse ox 99% on room air. HEENT: Moist mucous membrane. Crowded airway. NECK: Supple. No JVD. LUNGS: Have a few scattered rhonchi. HEART: S1 and S2. ABDOMEN: Soft, nontender. No organomegaly. EXTREMITIES: There is no edema. Had an ecchymotic area on the left axillary area. NEUROLOGICAL: Awake and alert. Follows simple command. LABORATORY DATA: Shows hemoglobin 10.0, hematocrit 31.7, WBC 5.2, platelet is 203. Sodium 142, potassium 4.4, chloride 106, bicarbonate 29, BUN 26, creatinine 0.6, glucose is 100, calcium is 9.1, AST 51, ALT 47, alk phos is 63, albumin is 3.2. MEDICATIONS: She is on Aricept 5 mg at bedtime, aspirin 81 mg daily, Cepacol lozenges q. 2 hours p.r.n., Colace 100 mg twice a day, DuoNeb q. 6 hours, folic acid 1 mg daily, lidocaine patch daily, metoprolol tartrate 25 mg twice a day, Lovenox 40 mg subcu daily, Motrin is 600 mg q. 6 hours p.r.n., Pepcid 20 mg daily, Percocet 5/325 one tab q. 8 hours p.r.n., promethazine 6.25 mg q. 6 hours p.r.n., prednisone 10 mg daily, Robitussin with Codeine 5 mL q. 4 hours p.r.n., Tylenol p.r.n., Zestril 5 mg daily, Zofran p.r.n. basis. IMPRESSION AND PLAN: Exacerbation of chronic obstructive lung disease; history of lung cancer, been on chemoradiation therapy; coronary artery disease; history of coronary stent; history of stroke; obesity; may have sleep apnea syndrome; history of hip fracture; multiple lung nodules; left-sided mostly muscular-type pain; has some subcutaneous hematoma. Continue pain management. Keep head at 45 degrees. P.o. and inhaled bronchodilator. Gastric prophylaxis. Sequential compression device to lower extremity. Fall precaution. Continue with therapy. Thank you and we will follow with you. Zhanna Rasmussen MD
[2017-06-25] MEDS: Oxycodone/Acetaminophen 5/325 mg Tab PO PRN ×4 (02:12→21:40)
[2017-06-25] MEDS: Enoxaparin 40 mg Syringe SC SCH (05:35)
[2017-06-25] MEDS: Albuterol-Ipratrop 3 mg / 0.5 (3 ml) UD IH SCH ×3 (07:25→21:00)
[2017-06-25] MEDS: Lidocaine 5% Patch TD SCH (11:17)
[2017-06-25] MEDS: guaiFENesin-Codeine 100-10mg/5ml Syrup (5 ml) UD PO PRN (17:53)
--- NOTE | 2017-06-25 23:47 | PN ---
DATE: PULMONARY PROGRESS NOTE REFERRING PHYSICIAN: Isauro Hudson MD. SUBJECTIVE: Patient is sitting out of bed to chair, sleepy, arousable. Night was unremarkable. No headache. No rhinitis. No chest pain. Does have muscular-type left axillary area pain . No nausea, no vomiting, no diarrhea. No leg pain or leg swelling. OBJECTIVE: GENERAL: In no acute distress. VITAL SIGNS: Temp is 98, heart rate is 67, respiratory rate is 18, blood pressure 150/76, pulse ox 94% on room air. HEENT: Moist mucous membrane. Crowded airway. Mallampati score is 4. NECK: Supple. No JVD. LUNGS: Have a fair airflow with rhonchi. HEART: S1 and S2. ABDOMEN: Soft, nontender. No organomegaly. EXTREMITIES: There is no edema. NEUROLOGICAL: Awake and alert. Follows simple commands. MEDICATIONS: She is on Aricept 5 mg at bedtime, aspirin 81 mg daily, Cepacol lozenges q.2 hours p.r.n., Colace 100 mg twice a day, albuterol/Atrovent nebulizer q.6 hours, folic acid 1 mg daily, lidocaine to the affected area, metoprolol tartrate 25 mg twice a day, Lovenox 40 mg daily, Motrin is 600 mg q.6 hours p.r.n., Pepcid 20 mg daily, Percocet 5/325 q.4 hours p.r.n., prednisone 10 mg daily, Robitussin with Codeine 5 mL q.4 hours p.r.n., Tylenol p.r.n., Zestril 5 mg daily, Zofran 4 mg q.4 hours p.r.n. LABORATORY DATA: Reviewed and noted. Blood sugar this morning 109. IMPRESSION AND PLAN: Exacerbation of chronic lung disease; history of lung cancer, been treated with radiation and chemotherapy in the remote past; coronary artery disease; history of coronary stent; history of stroke; obesity; may have sleep apnea syndrome; history of hip fracture; multiple lung nodules; left chest wall has subcutaneous hematoma; constipated. Spoke to nursing staff. We will give her Miralax on a daily basis. May give Dulcolax today. Cut down prednisone to 5 mg daily, fall precautions. Outpatient Oncology followup including PET scan. Thank you and we will follow with you. Zhanna Rasmussen MD [facility] # [id number]
[2017-06-26] MEDS: Albuterol-Ipratrop 3 mg / 0.5 (3 ml) UD IH SCH ×4 (01:17→21:55)
[2017-06-26] MEDS: Enoxaparin 40 mg Syringe SC SCH (05:17)
[2017-06-26] MEDS: Oxycodone/Acetaminophen 5/325 mg Tab PO PRN ×2 (07:45→16:13)
[2017-06-26] MEDS: Lidocaine 5% Patch TD SCH (09:57)
[2017-06-26] MEDS: POLYETHYLENE GLYCOL 3350 17 GM/Dose PACKET PO SCH (09:57)
--- NOTE | 2017-06-26 23:29 | PN ---
DATE: 06/26/2017 SUBJECTIVE: She has no complaints of any chest pain, no shortness of breath. She did confirm that she wants to be DNR. PHYSICAL EXAMINATION: VITAL SIGNS: Temperature is 97.6, pulse 78, blood pressure 139/69, respirations 20. GENERAL: The patient is lying in bed, flat, comfortable. HEENT: No oral lesion. Anicteric sclerae. Moist mucosa. NECK: No JVD, adenopathy, or thyromegaly. CARDIOVASCULAR: S1 and S2, regular. No murmurs, rubs, or gallops. LUNGS: Clear to auscultation bilaterally. No wheeze, rales, or rhonchi. ABDOMEN: Bowel sounds are positive, soft, nontender and nondistended. EXTREMITIES: no cyanosis, clubbing or edema. LABS: White count of 5.2, hemoglobin 10. ASSESSMENT: 1. Acute chronic obstructive pulmonary disease exacerbation. 2. History of lung cancer. 3. Coronary artery disease with stent. 4. Gait dysfunction. 5. Dementia. 6. Hypertension. 7. Do not resuscitate/do not intubate. PLAN: The patient is currently comfortable. She is on MiraLax for constipation. She is on morphine for pain. She is going to continue with Percocet for pain. She is on prednisone daily. She is being followed by Dr. Rasmussen from Pulmonary. She is on Zestril for her hypertension. She is receiving Aricept for her dementia. She is going to continue with physical therapy. She has had DNR form in the computer that was done previously. We will honor the patient's DNR. Dany Cramer MD
--- NOTE | 2017-06-27 00:45 | PN ---
DATE: 06/26/2017 PULMONARY PROGRESS NOTE REFERRING PHYSICIAN: Isauro Hudson MD. SUBJECTIVE: She is lying in the bed, head at 45 degrees. Feels better. Decreased cough. Decreased shortness of breath. Has a small bowel movement. Left-sided muscular pain is better. No nausea. No vomiting, diarrhea, leg pain or leg swelling. OBJECTIVE: GENERAL: In no acute distress. VITAL SIGNS: Temperature is 98, heart rate is 78, respiratory rate is 20, blood pressure 139/69, pulse ox 93% on room air. HEENT: Moist mucous membrane. Crowded airway. Mallampati score is 4. NECK: Supple. No JVD. LUNGS: Have a fair airflow with rhonchi. HEART: S1 and S2. ABDOMEN: Soft, nontender. No organomegaly. EXTREMITIES: No edema. NEUROLOGIC: Awake and alert. Follows simple command. SKIN: Left axillary area ecchymotic area is getting better. MEDICATIONS: She is on Aricept 5 mg at bedtime, aspirin 81 mg daily, Cepacol lozenges q. 2 hours p.r.n., Colace 100 mg twice a day, DuoNeb q. 6 hours, folic acid 1 mg daily, Lidoderm patches daily, metoprolol tartrate 25 mg twice a day, Lovenox 40 mg subcu daily, MiraLax 17 g daily, Motrin 600 q. 6 hours p.r.n., Pepcid 20 mg daily, Percocet 5/325 q. 4 hours p.r.n., prednisone 5 mg daily, Robitussin with Codeine 5 mL q. 4 hours p.r.n., Tylenol p.r.n. basis, Zestril 5 mg daily, Zofran p.r.n. basis. LABORATORY DATA: Shows blood sugar this morning 109. IMPRESSION AND PLAN: Exacerbation of chronic lung disease; history of lung cancer, treated with radiation and chemotherapy in the past; coronary artery disease; history of coronary stent; history of stroke; obesity; may have sleep apnea syndrome; history of hip fracture; multiple lung nodules; left chest wall has subcutaneous hematoma, which is improving; constipation. Pulmonary point of view, doing okay. Continue bronchodilator, stool softener, gastric prophylaxis, deep venous thrombosis prophylaxis. May repeat Dulcolax does. Also may give MiraLax one dose. Continue therapy. Thank you and we will follow with you. Zhanna Rasmussen MD [facility] # [id number]
[2017-06-27 02:19] LABS: URINE BILIRUBIN NEGATIVE (NEGATIVE); URINE BLOOD NEGATIVE (NEGATIVE); URINE GLUCOSE (UA) NEGATIVE (NEGATIVE); URINE LEUKOCYTE ESTERASE NEGATIVE Leu/uL (NEGATIVE); URINE PROTEIN NEGATIVE mg/dL (<30 mg/dL); URINE UROBILINOGEN 0.2 E.U./dL (<1 E.U./dL)
[2017-06-27 02:22] LABS: URINE APPEARANCE CLEAR (CLEAR); URINE COLOR YELLOW (YELLOW)
[2017-06-27] MEDS: Albuterol-Ipratrop 3 mg / 0.5 (3 ml) UD IH SCH ×4 (02:55→21:30)
[2017-06-27] MEDS: Enoxaparin 40 mg Syringe SC SCH (06:13)
[2017-06-27] MEDS: Oxycodone/Acetaminophen 5/325 mg Tab PO PRN ×3 (08:13→21:55)
[2017-06-27] MEDS: guaiFENesin-Codeine 100-10mg/5ml Syrup (5 ml) UD PO PRN ×3 (08:14→21:56)
[2017-06-27] MEDS: POLYETHYLENE GLYCOL 3350 17 GM/Dose PACKET PO SCH (09:57)
[2017-06-27] MEDS: Lidocaine 5% Patch TD SCH (09:57)
--- NOTE | 2017-06-27 22:53 | PN ---
DATE: PULMONARY PROGRESS NOTE REFERRING PHYSICIAN: Isauro Hudson MD SUBJECTIVE: She is lying in the bed, sleepy, arousable, getting ready for therapy, night was unremarkable, had a good bowel movement, cough is better, no nausea, no vomiting, no leg pain or leg swelling. OBJECTIVE: GENERAL: In no acute distress. VITAL SIGNS: Temperature 98, heart rate 74, respiratory rate is 20, blood pressure 127/82, pulse ox 95% on room air. HEENT: Moist mucous membrane. No ulcer or thrush noted. NECK: Supple. No JVD. LUNGS: Have a fair airflow with a few rhonchi. HEART: S1 and S2. ABDOMEN: Soft, nontender. No organomegaly. EXTREMITIES: There is no edema. NEUROLOGIC: Awake, alert. Follows simple commands. MEDICATIONS: She is on Aricept 5 mg at bedtime, aspirin 81 mg daily, Cepacol lozenges q. 2 hours p.r.n., Colace 100 mg twice a day, Dulcolax 10 mg rectally, DuoNeb q. 6 hours, folic acid 1 mg daily, lidocaine patch to affected area, Lopressor 25 mg twice a day, Lovenox 40 mg daily, MiraLax 17 g daily, Motrin 600 mg q. 6 hours p.r.n., Pepcid 20 mg daily, Percocet 5/325 one tablet q. 4 hours p.r.n., prednisone 5 mg daily, Robitussin with Codeine 5 mL q. 4 hours p.r.n., Tylenol p.r.n., Zestril 5 mg daily, Zofran p.r.n. basis. LABORATORY DATA: Shows blood sugar this morning 108. IMPRESSION AND PLAN: Exacerbation of chronic obstructive lung disease; history of lung cancer, treated with radiation and chemotherapy in the past; coronary artery disease; history of coronary stent; history of stroke; obesity; may have sleep apnea syndrome; history of hip fracture; multiple lung nodules; left chest wall subcutaneous hematoma. Pulmonary point of view, she is doing okay. Continue p.o. and inhaled bronchodilator, aspiration precaution, gastric prophylaxis, deep venous thrombosis prophylaxis, fall precaution, outpatient malignancy workup. Thank you and we will follow with you. Zhanna Rasmussen MD [facility] # [id number]
[2017-06-28] MEDS: Oxycodone/Acetaminophen 5/325 mg Tab PO PRN ×3 (05:32→21:56)
[2017-06-28] MEDS: Enoxaparin 40 mg Syringe SC SCH (05:33)
[2017-06-28] MEDS: guaiFENesin-Codeine 100-10mg/5ml Syrup (5 ml) UD PO PRN (05:33)
[2017-06-28] MEDS: Lidocaine 5% Patch TD SCH (10:15)
[2017-06-28] MEDS: POLYETHYLENE GLYCOL 3350 17 GM/Dose PACKET PO SCH (10:16)
[2017-06-28] MEDS: Albuterol-Ipratrop 3 mg / 0.5 (3 ml) UD IH SCH ×3 (10:27→20:38)
--- NOTE | 2017-06-28 14:38 | PN ---
DATE: SUBJECTIVE: The patient is an 82-year-old white female in TCU doing physical therapy, occupational therapy status post fall, status post urinary tract infection. The patient is afebrile. OBJECTIVE: VITAL SIGNS: Stable. HEART: Regular sinus rhythm. CHEST: Clear to auscultation and percussion. ABDOMEN: Soft. Patient has less pain. She has continued to progress with therapy. PLAN: To continue current therapy. Physical examination is unchanged. Isauro Hudson MD
--- NOTE | 2017-06-28 23:44 | PN ---
DATE: 06/28/2017 PULMONARY PROGRESS NOTE REFERRING PHYSICIAN: Isauro Hudson MD. SUBJECTIVE: The patient is lying in the bed, sleepy. Night was unremarkable. Doing well in therapy. Breathing is much better. Decreased cough. Decreased shortness of breath. No more left-sided muscular pain. No nausea. Has a good bowel movement. No leg pain. No leg swelling. OBJECTIVE: GENERAL: In no acute distress. VITAL SIGNS: Temp is 98, heart rate is 72, respiratory rate is 16, blood pressure 102/56, pulse ox 94% on room air. HEENT: Moist mucous membrane. Crowded airway. Mallampati score is IV. NECK: Supple. No JVD. LUNGS: Have fair airflow with rhonchi. HEART: S1, S2. ABDOMEN: Soft, nontender. No organomegaly. EXTREMITIES: No edema. NEUROLOGIC: Awake, alert. Follows simple command. MEDICATIONS: She is on Aricept 5 mg at bedtime, aspirin 81 mg daily, Cepacol lozenges q. 2 hours p.r.n., Colace 100 mg twice a day, Dulcolax 10 mg rectally, DuoNeb q.6 hours [id number], folic acid 1 mg daily, lidocaine patch to affected area daily, metoprolol tartrate 25 mg twice a day, Lovenox 40 mg daily, MiraLax 17 g daily, Motrin 600 mg q.6 hours, Pepcid 20 mg daily, prednisone 5 mg daily, Robitussin with codeine 5 mL q.4 hours p.r.n., Tylenol p.r.n., Zestril 5 mg daily and Zofran p.r.n. basis. LABORATORY DATA: Shows blood sugar this morning 114. IMPRESSION AND PLAN: Exacerbation of chronic obstructive lung disease, history of lung cancer treated with radiation and chemotherapy, coronary artery disease, history of coronary stent, history of stroke, obesity, may have sleep apnea syndrome, history of hip fracture. Pulmonary point of view, doing very well. We will discontinue her prednisone. Continue bronchodilator. Fall precaution. Gastric and deep vein thrombosis prophylaxis. Upon discharge, as an outpatient, malignancy workup. Thank you and we will follow with you. Mohammad Valery, MD
[2017-06-29] MEDS: Albuterol-Ipratrop 3 mg / 0.5 (3 ml) UD IH SCH ×4 (02:40→19:42)
[2017-06-29] MEDS: Lidocaine 5% Patch TD SCH (09:52)
[2017-06-29] MEDS: POLYETHYLENE GLYCOL 3350 17 GM/Dose PACKET PO SCH (09:53)
[2017-06-29] MEDS: Benzocaine/Menthol (Cepacol) Lozenge MT PRN ×2 (09:56→17:39)
[2017-06-29] MEDS: guaiFENesin-Codeine 100-10mg/5ml Syrup (5 ml) UD PO PRN (22:05)
[2017-06-29] MEDS ORDERED: Albuterol 0.083% Inhal Sol (2.5 mg/3 mL) UD IH PRN (23:06)
--- NOTE | 2017-06-29 23:45 | PN ---
DATE: 06/29/2017 PULMONARY PROGRESS NOTE REFERRING PHYSICIAN: Isauro Hudson MD. SUBJECTIVE: She is lying in the bed, head at 45 degrees. Has some mild cough and increased sputum. No nausea. No vomiting, diarrhea, leg pain or leg swelling. OBJECTIVE: GENERAL: In no acute distress. VITAL SIGNS: Temp is 98, heart rate is 95, respiratory rate is 20, blood pressure 135/69, pulse ox 95% on room air. HEENT: Moist mucous membrane. Crowded airway. NECK: Supple. No JVD. LUNGS: Have a fair airflow with a few rhonchi. HEART: S1 and S2. ABDOMEN: Soft and nontender. No organomegaly. EXTREMITIES: No edema. NEUROLOGICAL: Awake and alert. Follows simple command. LABORATORY DATA: Reviewed and noted. Blood sugar this morning is 101. MEDICATIONS: She is on Aricept 5 mg at bedtime, aspirin 81 mg daily, Cepacol lozenges q. 2 hours p.r.n., Colace 100 mg twice a day, Dulcolax 10 mg rectally daily, DuoNeb q. 6 hours, folic acid 1 mg daily, Lidoderm patch daily, metoprolol tartrate 25 mg twice a day, MiraLax 17 g daily, Motrin 600 mg q. 6 hours p.r.n., Pepcid 20 mg daily, Percocet 5/325 one tab q. 4 hours p.r.n., Robitussin with Codeine 5 mL q. 4 hours p.r.n., Tylenol p.r.n., Zestril 5 mg daily, Zofran p.r.n. basis. IMPRESSION AND PLAN: Exacerbation of chronic obstructive lung disease, history of lung cancer, treated with radiation and chemotherapy in the past; coronary artery disease; history of coronary stent; history of stroke; obesity; may have sleep apnea syndrome; history of hip fracture. Pulmonary point of view, doing well. Add Singulair 10 mg daily. Inhaled bronchodilator. Gastric prophylaxis. Deep vein thrombosis prophylaxis. Outpatient malignancy workup. Thank you and we will follow with you. Zhanna Rasmussen MD [facility] # [id number]
[2017-06-30] MEDS: Albuterol-Ipratrop 3 mg / 0.5 (3 ml) UD IH SCH ×4 (01:31→20:28)
[2017-06-30] MEDS: Lidocaine 5% Patch TD SCH (10:28)
[2017-06-30] MEDS: POLYETHYLENE GLYCOL 3350 17 GM/Dose PACKET PO SCH (10:29)
[2017-06-30] MEDS: guaiFENesin-Codeine 100-10mg/5ml Syrup (5 ml) UD PO PRN (10:37)
--- NOTE | 2017-06-30 14:40 | PN ---
DATE: SUBJECTIVE: The patient is an 82-year-old white female, seen in TCU, doing physical therapy, occupational therapy. Status post fall. Status post UTI. Multiple severe degenerative joint disease. The patient is well. Improving with physical therapy and occupational therapy. Less cough. Less shortness of breath. Less pain. Tolerating her pain medication appropriately. Doing physical therapy, planning on discharge home in the morning. Isauro Hudson MD
--- NOTE | 2017-06-30 16:17 | PN ---
DATE: 06/29/2017 SUBJECTIVE: The patient is an 82-year-old white female in TCU, status post fall, status post UTI, severe degenerative arthritis, near syncopal episode, in TCU for physical therapy, occupational therapy and continuation of her IV antibiotics for her urinary tract infection. She is afebrile. Vital signs are stable. LABORATORY DATA: White count is down to 5.2. PLAN: The patient is continuing to progress with physical therapy and occupational therapy. She is using a walker and cane. Physical examination is unchanged. Isauro Hudson MD
[2017-06-30] MEDS ORDERED: Mometasone 220 mcg/puff-14 puff Inh IH SCH (18:00)
[2017-06-30] MEDS: Oxycodone/Acetaminophen 5/325 mg Tab PO PRN (18:27)
--- NOTE | 2017-06-30 18:54 | PN ---
DATE: 06/30/2017 PULMONARY PROGRESS NOTE REFERRING PHYSICIAN: Isauro Hudson MD. SUBJECTIVE: She is lying in the bed, head at 45 degrees. Night was unremarkable. No headache. No rhinitis. Cough is better. No nausea. No vomiting. No diarrhea. No leg pain or leg swelling. PHYSICAL EXAMINATION: GENERAL: In no acute distress. VITAL SIGNS: Temperature is 98, heart rate 72, respiratory rate is 20, blood pressure 117/61, pulse ox 95% on room air. HEENT: Moist mucous membrane. Crowded airway. NECK: Supple. No JVD. LUNGS: Have a fair airflow with rhonchi. HEART: S1 and S2. ABDOMEN: Soft and nontender. No organomegaly. EXTREMITIES: No edema. NEUROLOGICAL: Awake and alert. Follows simple command. MEDICATIONS: She is on albuterol/Atrovent nebulizer q. 6 hours p.r.n., Aricept 5 mg at bedtime, Asmanex Twisthaler 220 mcg 2 puffs daily, aspirin 81 mg daily, Cepacol lozenges q. 2 hours p.r.n., Colace 100 mg twice a day, Dulcolax 10 mg rectally daily, q. 6 hours around the clock, folic acid 1 mg daily, lidocaine patch at affected area, metoprolol tartrate 25 mg twice a day, MiraLax 17 g daily, Motrin 600 mg q. 6 hours p.r.n., Pepcid 20 mg daily, Percocet 5/325 one tab q. 4 hours p.r.n., Robitussin with Codeine 5 mL q. 4 hours p.r.n., Singulair 10 mg at bedtime, Tylenol p.r.n., Zestril 5 mg daily, and Zofran p.r.n. basis. LABORATORY DATA: Reviewed and noted. Blood sugar this morning is 97. IMPRESSION AND PLAN: Exacerbation of chronic obstructive lung disease; history of lung cancer, treated with radiation and chemotherapy in the past; coronary artery disease, history of coronary stent; history of stroke; obesity, may have sleep apnea syndrome; history of hip fracture in the past. Pulmonary point of view, she is doing okay. Continue p.o. and inhaled bronchodilator. Keep head at 45 degrees. Gastric prophylaxis. Deep vein thrombosis prophylaxis. Outpatient malignancy workup and followup. Thank you and we will follow with you. Zhanna Rasmussen MD
[2017-07-01] MEDS: Albuterol-Ipratrop 3 mg / 0.5 (3 ml) UD IH SCH ×3 (01:30→13:30)
[2017-07-01 06:23] VITALS: TEMP 98.5
[2017-07-01] MEDS: Lidocaine 5% Patch TD SCH (09:12)
[2017-07-01] MEDS: POLYETHYLENE GLYCOL 3350 17 GM/Dose PACKET PO SCH (09:15)
[2017-07-01] MEDS: Oxycodone/Acetaminophen 5/325 mg Tab PO PRN (09:18)
[2017-07-01 11:06] VITALS: BP 139/73; PULSE 76; RESP 18; O2SAT 100
--- NOTE | 2017-07-02 06:09 | DS ---
HOSPITAL COURSE: The patient was admitted from [facility] to [facility]. She did well with physical therapy and occupational therapy. She completed her course of antibiotics for her urinary tract infection. She did have some arm pain, which was relieved with small dose of Percocet. She was alert and oriented x3 and doing well with physical therapy, walking at home with a walker. The patient will be discharged home in improved condition to finish outpatient physical therapy, and she will be discharged home with her family to be followed as an outpatient. FINAL DISCHARGE DIAGNOSES: Urinary tract infection, multiple falls, degenerative arthritis, and deconditioning. Isauro Hudson MD
== END 2017-07-01 14:31 | disposition home or self-care (01) | DRG 690 ==
LOC: TRCU 14:21 → 3RSO 16:16 → TRCU 16:20
PROVIDERS: ADMIT Internal Medicine; ATTEND Internal Medicine
PROC: 3E0F7GC Introduction of Other Therapeutic Substance into Respiratory Tract, Via Natural or Artificial Opening (ICD-10-PCS; 2017-06-21)
PROC: F07Z9FZ Gait Training/Functional Ambulation Treatment using Assistive, Adaptive, Supportive or Protective Equipment (ICD-10-PCS; principal; 2017-06-22)
PROC: F08Z4FZ Home Management Treatment using Assistive, Adaptive, Supportive or Protective Equipment (ICD-10-PCS; 2017-06-22)
DX: N39.0 Urinary tract infection, site not specified (principal); J44.1 Chronic obstructive pulmonary disease with (acute) exacerbation; F03.90 Unspecified dementia, unspecified severity, without behavioral disturbance, psychotic disturbance, mood disturbance, and anxiety; I25.10 Atherosclerotic heart disease of native coronary artery without angina pectoris; K21.9 Gastro-esophageal reflux disease without esophagitis; R29.6 Repeated falls; E66.9 Obesity, unspecified; Z66 Do not resuscitate; R26.9 Unspecified abnormalities of gait and mobility; I10 Essential (primary) hypertension; K59.00 Constipation, unspecified; Z79.2 Long term (current) use of antibiotics; Z85.118 Personal history of other malignant neoplasm of bronchus and lung; Z86.73 Personal history of transient ischemic attack (TIA), and cerebral infarction without residual deficits; Z87.81 Personal history of (healed) traumatic fracture; Z92.21 Personal history of antineoplastic chemotherapy; Z92.3 Personal history of irradiation; Z95.5 Presence of coronary angioplasty implant and graft

== ENCOUNTER 2017-12-10 13:15 | Inpatient (IN) | payer MEDICARE, BC ==
--- NOTE | 2017-12-10 13:21 | ED PDOC ---
Arrival/HPI - General Time Seen by Provider: 12/10/17 13:18 Historian: Patient - History of Present Illness Narrative History of Present Illness (Text): 12/10/17 13:58 A 82 year old female, whose past medical history includes CHF, hypertension, hyperlipidemia, diabetes type 2, COPD, CVA(right-sided weakness), and lung CA ( with chemotherapy), brought in by EMS to the emergency department for syncopal episode. Patient reports episode occurred after bowel movement, however is unable to remember what else happened upon waking up on the floor. Patient was unable to get up, so she called the ambulance. She is uncertain of any trauma, however states experiencing pain to right-side face/nose/shoulder. Patient denies any pizano pain, hip pain, back pain, or any other complaints at this time. PMD: Dr. 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 - Renal Hx Renal Disorder: No - Endocrine/Metabolic Hx Diabetes Mellitus Type 2: Yes - Hematological/Oncological Hx Blood Disorders: Yes Hx Cancer: Yes (lung, with chemo therapy) - Integumentary Hx Dermatological Disorder: No - Musculoskeletal/Rheumatological Hx Falls: Yes (recent) - Gastrointestinal Hx Gastrointestinal Disorders: (reflux) - Genitourinary/Gynecological Hx Reproductive Disorders: No - Psychiatric Hx Psychophysiologic Disorder: Yes Hx Anxiety: Yes Hx Depression: Yes Hx Substance Use: No - Past Surgical History Past Surgical History: Non-Contributing - Surgical History Hx Appendectomy: Yes Hx Cardiac Catheterization: Yes Hx Cholecystectomy: Yes Hx Coronary Stent: Yes (x 4) Hx Joint Replacement: Yes (right knee) Hx Orthopedic Surgery: Yes (left ankle) - Anesthesia Hx Anesthesia: Yes Hx Anesthesia Reactions: No Hx Malignant Hyperthermia: No - Suicidal Assessment Feels Threatened In Home Enviroment: No Family/Social History - Physician Review Nursing Documentation Reviewed: Yes Family/Social History: No Known Family HX Smoking Status: Smoker Currrent Status Unknown Hx Alcohol Use: No Hx Substance Use: No Hx Substance Use Treatment: No Allergies/Home Meds Allergies/Adverse Reactions: Allergies No Known Allergies Allergy (Verified 12/10/17 13:22) Home Medications: Home Meds Medication Instructions Recorded Confirmed ALPRAZolam [Xanax] 0.25 mg PO BID 12/10/17 12/10/17 Bupropion HCl [Wellbutrin XL] 300 mg PO DAILY 12/10/17 12/10/17 Gabapentin [Neurontin] 300 mg PO BID 12/10/17 12/10/17 Methylphenidate [Methylphenidate 5 mg PO BID 12/10/17 12/10/17 HCl] Multivitamin/Iron/Folic Acid 1 each PO DAILY 12/10/17 12/10/17 [Certavite-Antioxidant Tablet] Review of Systems - Physician Review All systems were reviewed & negative as marked: Yes - Review of Systems Cardiovascular: Syncope Musculoskeletal: Other (right-side face/nose/shoulder pain; no hip pain). absent: Back Pain, Neck Pain Physical Exam - Physical Exam Narrative Physical Exam (Text): Gen: VS reviewed, alert, well developed, well nourished, nontoxic, mild distress. ENT: normal pharynx, bridge of nose bruising Eye: EOMI, PERRL. Neck: no JVD, supple, no adenopathy. CV: regular rate, regular rhythm, no rubs, no murmur, no gallops, S1, S2, pulses equal and strong. Pulm: no distress, clear to auscultation, no wheeze, no rhonchi, breath sounds equal, no rales. Abd: soft, nontender, no guarding, no rebound, no rigidity, normal bowel sounds. Ext: no edema. Skin: good color, no rash, no cyanosis. Psych: responds appropriately to questions, normal affect. Neuro: oriented x 3, CN2-12 intact grossly, motor intact, sensation intact. Head: mild bruising to left-side forehead, tenderness to right-side forehead Vital Signs Reviewed: Yes Vital Signs Temp Pulse Resp BP Pulse Ox 12/10/17 16:46 64 18 145/68 95 12/10/17 15:25 69 18 133/68 95 12/10/17 13:31 98 F 81 18 132/61 95 Temperature: Afebrile Blood Pressure: Normal Pulse: Regular Respiratory Rate: Normal Appearance: Positive for: Well-Appearing, Non-Toxic, Comfortable Pain Distress: None Mental Status: Positive for: Alert and Oriented X 3 Medical Decision Making ED Course and Treatment: 12/10/17 14:00 Impression: 82 year old female with right-side face/nose/shoulder s/p syncopal episode at home after having a bowel movement. Physical exam shows bruising to bridge of nose; tenderness to right-side forehead, left forehead mild bruising. Plan: -- EKG -- Head CT -- Maxillofacial CT -- Chest X-ray -- Labs -- Urinalysis -- Reassess and disposition Prior Visits: Notes and results from previous visits were reviewed. Patient was last seen in the emergency department on 06/16/2017 for generalized weakness. Patient was admitted. Progress Notes: 12/10/17 13:25 EKG: Ordered, reviewed, and independently interpreted the EKG. Rate : 80 BPM Rhythm : NSR Interpretation : Right Bundle Branch Block, 1st degree AV block, non-specific T- wave abnormalities. Comparison : No previous EKG for comparison. 12/10/2017 14:10 Chest X-ray IMPRESSION: No active disease. Dictator: Ramu Lazcano MD 12/10/2017 14:[address] IMPRESSION: Severe chronic microvascular changes in the periventricular and deep white matter. No acute findings. Dictator: Ramu Lazcano MD 12/10/2017 15:[address] IMPRESSION: Unremarkable non contrast enhanced CT of the maxillofacial bones. Dictator: Ramu Lazcano MD 12/10/17 15:[address] Giordano, hospitalist, who agrees to admit patient for syncopal event, history of CHF. Patient presents no acute symptoms of decompensated CHF and will be admitted to rule arrhythmia. - Lab Interpretations Lab Results: 12/10/17 13:30 12/10/17 13:30 Lab Results 12/10/17 13:30: Sodium 144, Potassium 3.6, Chloride 109 H, Carbon Dioxide 25, Anion Gap 14, BUN 20, Creatinine 0.8, Est GFR ( Amer) > 60, Est GFR (Non- Af Amer) > 60, Random Glucose 146 H, Calcium 9.1, Magnesium 1.8, Total Bilirubin 0.3, AST 32, ALT 26, Alkaline Phosphatase 120, Total Creatine Kinase 171, NT-Pro-B Natriuret Pep 608 H, Total Protein 6.9, Albumin 3.9, Globulin 3.0 , Albumin/Globulin Ratio 1.3 12/10/17 13:30: WBC 9.1 D, RBC 4.26, Hgb 12.2 D, Hct 38.1, MCV 89.4 D, MCH 28.6, MCHC 32.0, RDW 15.5 H, Plt Count 299, MPV 11.4 H, Gran % 55.2, Lymph % ( Auto) 32.0, Potter % (Auto) 6.9 H, Eos % (Auto) 5.2 H, Baso % (Auto) 0.7, Gran # 5.00, Lymph # (Auto) 2.9, Potter # (Auto) 0.6, Eos # (Auto) 0.5, Baso # (Auto) 0.06 12/10/17 13:25: POC Glucose (mg/dL) 161 H I have reviewed the lab results: Yes - RAD Interpretation Radiology Orders: 12/10/17 13:27 CHEST PORTABLE [RAD] Stat 12/10/17 13:57 HEAD W/O CONTRAST [CT] Stat MAXILLOFACIAL W/O CONTRAST [CT] Stat - Medication Orders Current Medication Orders: Artificial Tears (Artificial Tears) 0 ml OU TID REE Aspirin (Aspirin Chewable) 81 mg PO DAILY REE Atorvastatin Calcium (Lipitor) 10 mg PO DIN REE Last Admin: 12/10/17 22:07 Dose: 10 mg Donepezil HCl (Aricept) 5 mg PO HS REE Last Admin: 12/10/17 22:07 Dose: 5 mg Enoxaparin Sodium (Lovenox) 40 mg SC DAILY REE PRN Reason: Protocol Sodium Chloride (Sodium Chloride 0.9%) 1,000 mls @ 100 mls/hr IV .Q10H REE Last Admin: 12/10/17 20:30 Dose: 100 mls/hr eMAR Start Stop Document 12/10/17 20:30 CDL (Rec: 12/10/17 22:07 CDL [facility] [id number]) Intravenous Solution Start Date 12/10/17 Start Time 20:30 - Scribe Statement The provider has reviewed the documentation as recorded by the Cindi Singleton Provider Scribe Attestation: All medical record entries made by the Scribe were at my direction and personally dictated by me. I have reviewed the chart and agree that the record accurately reflects my personal performance of the history, physical exam, medical decision making, and the department course for this patient. I have also personally directed, reviewed, and agree with the discharge instructions and disposition. Disposition/Present on Arrival - Present on Arrival Any Indicators Present on Arrival: No History of DVT/PE: No History of Uncontrolled Diabetes: No Urinary Catheter: No History Surgical Site Infection Following: None - Disposition Have Diagnosis and Disposition been Completed?: Yes Diagnosis: Syncope Disposition: HOSPITALIZED Disposition Time: 22:44 Patient Plan: Admission Condition: STABLE
[2017-12-10 13:29] VITALS: BMI 33.7
[2017-12-10 13:58] LABS: BASO # 0.06 K/mm3 (0.0-2.0); BASO % 0.7 % (0.0-3.0); EOS # 0.5 (0.0-0.7); EOS % 5.2 % (1.5-5.0); GRAN % 55.2 % (50.0-68.0); HEMOGLOBIN 12.2 g/dL (12.0-16.0); LYMPH # 2.9 (1.2-3.4); MEAN CELL VOLUME 89.4 fl (80.0-105.0); MEAN CORPUSCULAR HEMOGLOBIN 28.6 pg (25.0-35.0); MEAN PLATELET VOLUME 11.4 fl (7.0-11.0); MONO # 0.6 (0.1-0.6); MONO % 6.9 % (1.0-6.0); RBC 4.26 10^6/uL (3.5-6.1); RED CELL DISTRIBUTION WIDTH 15.5 % (11.5-14.5); WHITE BLOOD COUNT 9.1 10^3/ul (4.5-11.0)
--- NOTE | 2017-12-10 14:12 | RAD ---
Date of service: 12/10/2017 HISTORY: syncope COMPARISON: No prior. FINDINGS: LUNGS: No active pulmonary disease. PLEURA: No significant pleural effusion identified, no pneumothorax apparent. CARDIOVASCULAR: Mild cardiomegaly OSSEOUS STRUCTURES: No significant abnormalities. VISUALIZED UPPER ABDOMEN: Normal. OTHER FINDINGS: None. IMPRESSION: No active disease.
[2017-12-10 14:30] LABS: ALB/GLOB RATIO 1.3 (1.1-1.8); ALBUMIN 3.9 g/dL (3.0-4.8); ALT/SGPT 26 U/L (7-56); AST/SGOT 32 U/L (14-36); BLOOD UREA NITROGEN 20 mg/dL (7-21); CALCIUM 9.1 mg/dL (8.4-10.5); GFR NON-AFRICAN AMERICAN > 60
[2017-12-10 14:38] LABS: B-TYPE NATRIURETIC PEPTIDE 608 pg/mL (0-450)
--- NOTE | 2017-12-10 14:58 | CT ---
Date of service: 12/10/2017 PROCEDURE: CT HEAD WITHOUT CONTRAST. HISTORY: trauma COMPARISON: 06/16/2017 TECHNIQUE: Axial computed tomography images were obtained through the head/brain without intravenous contrast. Radiation dose: Total exam DLP = 873 mGy-cm. This CT exam was performed using one or more of the following dose reduction techniques: Automated exposure control, adjustment of the mA and/or kV according to patient size, and/or use of iterative reconstruction technique. FINDINGS: HEMORRHAGE: No intracranial hemorrhage. BRAIN: No mass effect or edema. Severe chronic microvascular changes in the periventricular and deep white matter. No acute findings VENTRICLES: Unremarkable. No hydrocephalus. CALVARIUM: Unremarkable. PARANASAL SINUSES: Unremarkable as visualized. No significant inflammatory changes. MASTOID AIR CELLS: Unremarkable as visualized. No inflammatory changes. OTHER FINDINGS: None. IMPRESSION: Severe chronic microvascular changes in the periventricular and deep white matter. No acute findings
--- NOTE | 2017-12-10 15:03 | CT ---
Date of service: 12/10/2017 PROCEDURE: CT MAXILLOFACIAL BONES WITHOUT CONTRAST HISTORY: trauma COMPARISON: None available. TECHNIQUE: Contiguous axial CT images of the maxillofacial bones were obtained. Coronal and sagittal reformats were generated. Radiation dose: Total exam DLP = 750 mGy-cm. This CT exam was performed using one or more of the following dose reduction techniques: Automated exposure control, adjustment of the mA and/or kV according to patient size, and/or use of iterative reconstruction technique. FINDINGS: NASAL BONES: Unremarkable. ORBITS: Unremarkable. PARANASAL SINUSES/ MASTOIDS: Clear. MAXILLA: Unremarkable. MANDIBLE/ TEMPOROMANDIBULAR JOINTS: Unremarkable. SKULL BASE: Unremarkable. TEMPORAL BONES: Middle ears and mastoid grossly unremarkable. OTHER FINDINGS: None. IMPRESSION: Unremarkable non contrast enhanced CT of the maxillofacial bones.
--- NOTE | 2017-12-10 16:25 | CP.PCM.HP ---
<SamirMariano R - Last Filed: 12/10/17 19:43> History of Present Illness - History of Present Illness History of Present Illness: PGY-2 H&P note for Dr Clements Mrs Hoff is a 82 year old female with a PMHx of CVA with residual right- sided weakness, DM2, CHF, HTN, DJD, COPD, CAD s/p 3 stents, anxiety, right knee replacement, lung cancer s/p chemo and radiation who presented to the ED after a syncopal episode. Patient was eating lunch and midway thru lunch went to bathroom to have bowel movement, while having bowel movement on toilet patient syncopized and fell off toilet seat on her right side. She stated she doesn't believe she hit her head. Patient not sure how long she was out - she believes it was a very short time. She stated "the next thing I remember was I was on the floor". Patient remained on the floor due to extension toilet seat fall on her and also due to patient has residual right sided weakness from prior CVA. Additionally, patient stated she has new-onset blurriness which began around lunch time. Otherwise, denies headaches, chest pain, new focal deficits, weakness, numbness, tingling, urinary incontinence. PMD: Dr. 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 Allergies: NKA Home meds: methylphenidate 5mg po bid, lisinopril 5mg po qd, gabapentin 300mg po bid, donepezil 5mg po hs, bupropion 300mg po qd, atorvastatin 10mg po hs, asa 81mg po qd, xanax 0.25mg po bid SocialHx: denies hx or current tobacco use, denies alcohol or illicit drug use, lives with son at home FamHx: Father from lung cancer, Mother from lung cancer, Son with HTN Present on Admission - Present on Admission Any Indicators Present on Admission: No Review of Systems - Constitutional Constitutional: absent: Chills, Fever - EENT Eyes: Blurred Vision Nose/Mouth/Throat: absent: Nasal Congestion Additional comments: bottom teeth fell out while eating lunch today - no bleeding - Cardiovascular Cardiovascular: absent: Chest Pain - Respiratory Respiratory: absent: Cough, Wheezing - Gastrointestinal Gastrointestinal: absent: Abdominal Pain - Genitourinary Genitourinary: absent: Dysuria - Musculoskeletal Musculoskeletal: Muscle Weakness - Integumentary Integumentary: absent: Bleeding Lesions Past Patient History - Infectious Disease Hx of Infectious Diseases: None - Tetanus Immunizations Tetanus Immunization: Unknown - Past Medical History & Family History Past Medical History?: Yes - Past Social History Smoking Status: Smoker Currrent Status Unknown - CARDIAC Hx Cardiac Disorders: Yes Hx Hypertension: Yes - PULMONARY Hx Chronic Obstructive Pulmonary Disease (COPD): Yes - NEUROLOGICAL HX Cerebrovascular Accident: Yes (R-sided weakness) - HEENT Hx HEENT Problems: Yes Hx Blind: Yes (right eye visual impairment) Other/Comment: retinal detachment - RENAL Hx Chronic Kidney Disease: No - ENDOCRINE/METABOLIC Hx Diabetes Mellitus Type 2: Yes - HEMATOLOGICAL/ONCOLOGICAL Hx Blood Disorders: Yes Hx Cancer: Yes (lung, with chemo therapy) - INTEGUMENTARY Hx Dermatological Problems: No - MUSCULOSKELETAL/RHEUMATOLOGICAL Hx Falls: Yes (recent) - GASTROINTESTINAL Hx Gastrointestinal Disorders: (reflux) - GENITOURINARY/GYNECOLOGICAL Hx Reproductive Disorders: No - PSYCHIATRIC Hx Psychophysiologic Disorder: Yes Hx Anxiety: Yes Hx Depression: Yes Hx Substance Use: No - SURGICAL HISTORY Hx Appendectomy: Yes Hx Cardiac Catheterization: Yes Hx Cholecystectomy: Yes Hx Coronary Stent: Yes (x 4) Hx Joint Replacement: Yes (right knee) Hx Orthopedic Surgery: Yes (left ankle) - ANESTHESIA Hx Anesthesia: Yes Hx Anesthesia Reactions: No Hx Malignant Hyperthermia: No Meds Allergies/Adverse Reactions: Allergies Allergy/AdvReac Type Severity Reaction Status Date / Time No Known Allergies Allergy Verified 12/10/17 13:22 Physical Exam - Constitutional Appears: Well, Non-toxic, No Acute Distress - Head Exam Head Exam: ATRAUMATIC, NORMAL INSPECTION - Eye Exam Eye Exam: EOMI Pupil Exam: PERRL - ENT Exam ENT Exam: Mucous Membranes Moist - Neck Exam Neck exam: Positive for: Full Rom, Normal Inspection. Negative for: Tenderness - Respiratory Exam Respiratory Exam: Decreased Breath Sounds, Clear to Auscultation Bilateral, NORMAL BREATHING PATTERN. absent: Rales, Rhonchi, Wheezes - Cardiovascular Exam Cardiovascular Exam: REGULAR RHYTHM, +S1, +S2. absent: Bradycardia, Tachycardia , JVD, Systolic Murmur - GI/Abdominal Exam GI & Abdominal Exam: Normal Bowel Sounds, Soft. absent: Distended, Firm, Guarding, Tenderness - Extremities Exam Extremities exam: Positive for: normal capillary refill, normal inspection, pedal edema, pedal pulses present. Negative for: calf tenderness - Neurological Exam Neurological exam: Alert, CN II-XII Intact, Oriented x3 - Expanded Neurological Exam Expanded Patient oriented to: person, place, time Speech: Fluid Speech Cranial nerves: EOM's Intact: Normal Cerebellar Function: Finger to Nose: Normal, Heel to Mota: Normal Upper motor neuron: Babinski Sign: Normal, Pronator Drift: Normal Sensory exam: Lower Extremity 2 Point Discrimination: Normal, Upper Extremity 2 Point Discrimination: Normal Neuro motor strength exam: Left Upper Extremity: 5, Right Upper Extremity: 4, Left Lower Extremity: 5, Right Lower Extremity: 4 Coma Scale Eye Opening: SPONTANEOUS Coma Scale Motor Response: OBEYS COMMANDS - Psychiatric Exam Psychiatric exam: Normal Affect, Normal Mood - Skin Skin Exam: Intact, Normal Color, Warm Results - Vital Signs Recent Vital Signs: Last Vital Signs Temp 98 F 12/10/17 13:31 Pulse 69 12/10/17 15:25 Resp 18 12/10/17 15:25 BP 133/68 12/10/17 15:25 Pulse Ox 95 12/10/17 15:25 - Labs Result Diagrams: 12/10/17 13:30 12/10/17 13:30 Assessment & Plan - Assessment and Plan (Free Text) Plan: Mrs Hoff is a 82 year old female with a PMHx of CVA with residual right- sided weakness, DM2, CHF, HTN, DJD, COPD, CAD s/p 3 stents, anxiety, right knee replacement, lung cancer s/p chemo and radiation who presented to the ED after a syncopal episode: Syncope Neurology consulted, Dr Huntley * suspecting neurocardiogenic syncope but given new-onset blurriness will get imaging to rule out vascular component Con't home med aspirin 81mg po qd NS @ 100cc/hr Holding home bupropion, alprazolam as it could have caused excessive drowsiness and patient is confusing this as syncope F/U HgbA1c, lipid panel, TSH, B12, Folate, Vitamin D Allow permissive hypertension for now until imaging has resulted, only treat if SBP > 220 or DBP > 110 Imaging: F/U MRI brain F/U CTA head/neck Head CT w/o contrast: Severe chronic microvascular changes in the periventricular and deep white matter. No acute findings Maxillofacial CT w/o contrast: Unremarkable non contrast enhanced CT of the maxillofacial bones Has had EEG in past which failed to show any epileptiform activity New-Onset Blurry Vision Neurology consulted, Dr Huntley * suspecting neurocardiogenic syncope but given new-onset blurriness will get imaging to rule out vascular component Patient with right eye blindness and hx of right eye surgery due to complications from measles F/U MRI brain F/U CTA head/neck Dementia Con't home donepezil 5mg po qd Hx of CVA with residual right-sided weakness Con't home aspirin 81mg po qd Con't home atorvastatin 10mg po hs CAD s/p 3 stents Cardiology consult, Dr Fuentes EKG shows 1st degree AV block with RBBB unchanged from prior EKGs Pro-bnp 608 Con't home aspirin 81mg po qd DM2 Not on diabetic home medication Holding home gabapentin 300mg po bid for now F/U HgbA1c Accuchecks ACHS Degenerative Joint Disease s/p right knee replacement PT eval Prophylaxis SCDs and lovenox 40mg sc qd dysphagia diet for now as patient long bottom teeth-caps while eating lunch on day of admission <Donovan Clements - Last Filed: 12/11/17 19:14> Results - Vital Signs Recent Vital Signs: Last Vital Signs Temp 98.4 F 12/11/17 18:00 Pulse 88 12/11/17 18:00 Resp 20 12/11/17 18:00 BP 143/76 12/11/17 18:00 Pulse Ox 98 12/11/17 18:00 - Labs Result Diagrams: 12/11/17 06:30 12/11/17 06:30 Labs: Laboratory Results - last 24 hr 12/10/17 12/10/17 12/11/17 19:25 22:39 06:30 WBC RBC Hgb Hct MCV MCH MCHC RDW Plt Count MPV Gran % Lymph % (Auto) [place] % (Auto) Eos % (Auto) Baso % (Auto) Gran # Lymph # (Auto) [place] # (Auto) Eos # (Auto) Baso # (Auto) Sodium 147 Potassium 3.8 Chloride 106 Carbon Dioxide 31 Anion Gap 14 BUN 15 Creatinine 0.8 Est GFR ( Amer) > 60 Est GFR (Non-Af Amer) > 60 POC Glucose (mg/dL) 105 Random Glucose 95 Calcium 9.1 Phosphorus 3.5 Magnesium 1.9 Total Bilirubin 0.4 AST 30 ALT 28 Alkaline Phosphatase 123 Troponin I < 0.01 Total Protein 6.7 Albumin 3.7 Globulin 3.0 Albumin/Globulin Ratio 1.2 Triglycerides 105 Cholesterol 201 H LDL Cholesterol Direct 127 HDL Cholesterol 45 25-OH Vitamin D Total Folate > 20.0 TSH 3rd Generation 12/11/17 12/11/17 12/11/17 06:30 06:30 06:30 WBC 9.1 RBC 4.11 Hgb 11.7 L Hct 36.6 MCV 89.1 MCH 28.5 MCHC 32.0 RDW 15.5 H Plt Count 262 MPV 11.2 H Gran % 63.9 Lymph % (Auto) 24.9 [place] % (Auto) 6.5 H Eos % (Auto) 4.2 Baso % (Auto) 0.5 Gran # 5.84 Lymph # (Auto) 2.3 [place] # (Auto) 0.6 Eos # (Auto) 0.4 Baso # (Auto) 0.05 Sodium Potassium Chloride Carbon Dioxide Anion Gap BUN Creatinine Est GFR ( Amer) Est GFR (Non-Af Amer) POC Glucose (mg/dL) Random Glucose Calcium Phosphorus Magnesium Total Bilirubin AST ALT Alkaline Phosphatase Troponin I Total Protein Albumin Globulin Albumin/Globulin Ratio Triglycerides Cholesterol LDL Cholesterol Direct HDL Cholesterol 25-OH Vitamin D Total 28.0 L Folate TSH 3rd Generation 1.83 12/11/17 12/11/17 07:36 11:38 WBC RBC Hgb Hct MCV MCH MCHC RDW Plt Count MPV Gran % Lymph % (Auto) [place] % (Auto) Eos % (Auto) Baso % (Auto) Gran # Lymph # (Auto) [place] # (Auto) Eos # (Auto) Baso # (Auto) Sodium Potassium Chloride Carbon Dioxide Anion Gap BUN Creatinine Est GFR ( Amer) Est GFR (Non-Af Amer) POC Glucose (mg/dL) 106 158 H Random Glucose Calcium Phosphorus Magnesium Total Bilirubin AST ALT Alkaline Phosphatase Troponin I Total Protein Albumin Globulin Albumin/Globulin Ratio Triglycerides Cholesterol LDL Cholesterol Direct HDL Cholesterol 25-OH Vitamin D Total Folate TSH 3rd Generation Attending/Attestation - Attestation I have personally seen and examined this patient.: Yes I have fully participated in the care of the patient.: Yes I have reviewed all pertinent clinical information: Yes
[2017-12-10] MEDS ORDERED: Sodium Chloride 0.9% 1,000 ML IV SCH (20:00)
--- NOTE | 2017-12-10 20:09 | CP.PCM.CON ---
<Mariano Dawson - Last Filed: 12/10/17 20:05> History of Present Illness - History of Present Illness History of Present Illness: PGY-2 neurology consult note for Dr Huntley Mrs Hoff is a 82 year old female with a PMHx of CVA with residual right- sided weakness, DM2, CHF, HTN, DJD, COPD, CAD s/p 3 stents, anxiety, right knee replacement, lung cancer s/p chemo and radiation who presented to the ED after a syncopal episode. Patient was eating lunch and midway thru lunch went to bathroom to have bowel movement, while having bowel movement on toilet patient syncopized and fell off toilet seat on her right side. She stated she doesn't believe she hit her head. Patient not sure how long she was out - she believes it was a very short time. She stated "the next thing I remember was I was on the floor". Patient remained on the floor due to extension toilet seat fall on her and also due to patient has residual right sided weakness from prior CVA. Additionally, patient stated she has new-onset blurriness which began around lunch time. Otherwise, denies headaches, chest pain, new focal deficits, weakness, numbness, tingling. PMD: Dr. 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 Allergies: NKA Home meds: methylphenidate 5mg po bid, lisinopril 5mg po qd, gabapentin 300mg po bid, donepezil 5mg po hs, bupropion 300mg po qd, atorvastatin 10mg po hs, asa 81mg po qd, xanax 0.25mg po bid SocialHx: denies hx or current tobacco use, denies alcohol or illicit drug use, lives with son at home FamHx: Father from lung cancer, Mother from lung cancer, Son with HTN Review of Systems - Constitutional Constitutional: absent: Chills, Fever - EENT Eyes: Blurred Vision - Cardiovascular Cardiovascular: absent: Chest Pain - Respiratory Respiratory: absent: Cough, Dyspnea - Gastrointestinal Gastrointestinal: absent: Abdominal Pain - Genitourinary Genitourinary: absent: Dysuria - Integumentary Integumentary: absent: Bleeding Lesions - Neurological Neurological: Abnormal Gait Past Patient History - Infectious Disease Hx of Infectious Diseases: None - Tetanus Immunizations Tetanus Immunization: Unknown - Past Medical History & Family History Past Medical History?: Yes - Past Social History Smoking Status: Smoker Currrent Status Unknown - CARDIAC Hx Cardiac Disorders: Yes Hx Hypertension: Yes - PULMONARY Hx Chronic Obstructive Pulmonary Disease (COPD): Yes - NEUROLOGICAL HX Cerebrovascular Accident: Yes (R-sided weakness) - HEENT Hx HEENT Problems: Yes Hx Blind: Yes (right eye visual impairment) Other/Comment: retinal detachment - RENAL Hx Chronic Kidney Disease: No - ENDOCRINE/METABOLIC Hx Diabetes Mellitus Type 2: Yes - HEMATOLOGICAL/ONCOLOGICAL Hx Blood Disorders: Yes Hx Cancer: Yes (lung, with chemo therapy) - INTEGUMENTARY Hx Dermatological Problems: No - MUSCULOSKELETAL/RHEUMATOLOGICAL Hx Falls: Yes (recent) - GASTROINTESTINAL Hx Gastrointestinal Disorders: (reflux) - GENITOURINARY/GYNECOLOGICAL Hx Reproductive Disorders: No - PSYCHIATRIC Hx Psychophysiologic Disorder: Yes Hx Anxiety: Yes Hx Depression: Yes Hx Substance Use: No - SURGICAL HISTORY Hx Appendectomy: Yes Hx Cardiac Catheterization: Yes Hx Cholecystectomy: Yes Hx Coronary Stent: Yes (x 4) Hx Joint Replacement: Yes (right knee) Hx Orthopedic Surgery: Yes (left ankle) - ANESTHESIA Hx Anesthesia: Yes Hx Anesthesia Reactions: No Hx Malignant Hyperthermia: No Meds Allergies/Adverse Reactions: Allergies Allergy/AdvReac Type Severity Reaction Status Date / Time No Known Allergies Allergy Verified 12/10/17 13:22 - Medications Medications: Current Medications Artificial Tears (Artificial Tears) 0 ml OU TID [facility] Aspirin (Aspirin Chewable) 81 mg PO DAILY [facility] Atorvastatin Calcium (Lipitor) 10 mg PO DIN [facility] Donepezil HCl (Aricept) 5 mg PO HS [facility] Enoxaparin Sodium (Lovenox) 40 mg SC DAILY [facility] PRN Reason: Protocol Sodium Chloride (Sodium Chloride 0.9%) 1,000 mls @ 100 mls/hr IV .Q10H [facility] Physical Exam - Additional Findings Additional findings: - Constitutional Appears: Well, Non-toxic, No Acute Distress - Head Exam Head Exam: ATRAUMATIC, NORMAL INSPECTION - Eye Exam Eye Exam: EOMI Pupil Exam: PERRL - ENT Exam ENT Exam: Mucous Membranes Moist - Neck Exam Neck exam: Positive for: Full Rom, Normal Inspection. Negative for: Tenderness - Respiratory Exam Respiratory Exam: Decreased Breath Sounds, Clear to Auscultation Bilateral, NORMAL BREATHING PATTERN. absent: Rales, Rhonchi, Wheezes - Cardiovascular Exam Cardiovascular Exam: REGULAR RHYTHM, +S1, +S2. absent: Bradycardia, Tachycardia , JVD, Systolic Murmur - GI/Abdominal Exam GI & Abdominal Exam: Normal Bowel Sounds, Soft. absent: Distended, Firm, Guarding, Tenderness - Extremities Exam Extremities exam: Positive for: normal capillary refill, normal inspection, pedal edema, pedal pulses present. Negative for: calf tenderness - Neurological Exam Neurological exam: Alert, CN II-XII Intact, Oriented x3 - Expanded Neurological Exam Expanded Patient oriented to: person, place, time Speech: Fluid Speech Cranial nerves: EOM's Intact: Normal Cerebellar Function: Finger to Nose: Normal, Heel to Mota: Normal Upper motor neuron: Babinski Sign: Normal, Pronator Drift: Normal Sensory exam: Lower Extremity 2 Point Discrimination: Normal, Upper Extremity 2 Point Discrimination: Normal Neuro motor strength exam: Left Upper Extremity: 5, Right Upper Extremity: 4, Left Lower Extremity: 5, Right Lower Extremity: 4 Coma Scale Eye Opening: SPONTANEOUS Coma Scale Motor Response: OBEYS COMMANDS - Psychiatric Exam Psychiatric exam: Normal Affect, Normal Mood - Skin Skin Exam: Intact, Normal Color, Warm Results - Vital Signs Recent Vital Signs: Last Vital Signs Temp 98.7 F 12/10/17 17:58 Pulse 64 12/10/17 18:00 Resp 18 12/10/17 17:58 BP 157/82 H 12/10/17 17:58 Pulse Ox 97 12/10/17 17:34 - Labs Result Diagrams: 12/10/17 13:30 12/10/17 13:30 Labs: Laboratory Results - last 24 hr 12/10/17 19:25 Troponin I < 0.01 Assessment & Plan - Assessment and Plan (Free Text) Plan: Mrs Hoff is a 82 year old female with a PMHx of CVA with residual right- sided weakness, DM2, CHF, HTN, DJD, COPD, CAD s/p 3 stents, anxiety, right knee replacement, lung cancer s/p chemo and radiation who presented to the ED after a syncopal episode: Syncope Neurology consulted, Dr Huntley * suspecting neurocardiogenic syncope but given new-onset blurriness will get imaging to rule out vascular component Con't home med aspirin 81mg po qd NS @ 100cc/hr Holding home bupropion, alprazolam as it could have caused excessive drowsiness and patient is confusing this as syncope F/U HgbA1c, lipid panel, TSH, B12, Folate, Vitamin D Allow permissive hypertension for now until imaging has resulted, only treat if SBP > 220 or DBP > 110 Imaging: F/U MRI brain F/U CTA head/neck Head CT w/o contrast: Severe chronic microvascular changes in the periventricular and deep white matter. No acute findings Maxillofacial CT w/o contrast: Unremarkable non contrast enhanced CT of the maxillofacial bones Has had EEG in past which failed to show any epileptiform activity New-Onset Blurry Vision Neurology consulted, Dr Huntley * suspecting neurocardiogenic syncope but given new-onset blurriness will get imaging to rule out vascular component Patient with right eye blindness and hx of right eye surgery due to complications from measles F/U MRI brain F/U CTA head/neck Dementia Con't home donepezil 5mg po qd Hx of CVA with residual right-sided weakness Con't home aspirin 81mg po qd Con't home atorvastatin 10mg po hs <Mohan Huntley - Last Filed: 12/11/17 16:45> Meds - Medications Medications: Current Medications Artificial Tears (Artificial Tears) 0 ml OU TID [facility] Last Admin: 12/11/17 13:51 Dose: 1 drop Aspirin (Aspirin Chewable) 81 mg PO DAILY [facility] Last Admin: 12/11/17 10:05 Dose: 81 mg Atorvastatin Calcium (Lipitor) 10 mg PO DIN [facility] Last Admin: 12/10/17 22:07 Dose: 10 mg Donepezil HCl (Aricept) 5 mg PO HS [facility] Last Admin: 12/10/17 22:07 Dose: 5 mg Enoxaparin Sodium (Lovenox) 40 mg SC DAILY [facility] PRN Reason: Protocol Last Admin: 12/11/17 10:04 Dose: 40 mg Lisinopril (Zestril) 5 mg PO DAILY [facility] Last Admin: 12/11/17 10:04 Dose: 5 mg Results - Vital Signs Recent Vital Signs: Last Vital Signs Temp 97.7 F 12/11/17 12:00 Pulse 90 12/11/17 12:00 Resp 19 12/11/17 12:00 BP 186/92 H 12/11/17 12:00 Pulse Ox 72 L 12/11/17 05:35 - Labs Result Diagrams: 12/11/17 06:30 12/11/17 06:30 Labs: Laboratory Results - last 24 hr 12/10/17 12/10/17 12/11/17 19:25 22:39 06:30 WBC RBC Hgb Hct MCV MCH MCHC RDW Plt Count MPV Gran % Lymph % (Auto) [place] % (Auto) Eos % (Auto) Baso % (Auto) Gran # Lymph # (Auto) [place] # (Auto) Eos # (Auto) Baso # (Auto) Sodium 147 Potassium 3.8 Chloride 106 Carbon Dioxide 31 Anion Gap 14 BUN 15 Creatinine 0.8 Est GFR ( Amer) > 60 Est GFR (Non-Af Amer) > 60 POC Glucose (mg/dL) 105 Random Glucose 95 Calcium 9.1 Phosphorus 3.5 Magnesium 1.9 Total Bilirubin 0.4 AST 30 ALT 28 Alkaline Phosphatase 123 Troponin I < 0.01 Total Protein 6.7 Albumin 3.7 Globulin 3.0 Albumin/Globulin Ratio 1.2 Triglycerides 105 Cholesterol 201 H LDL Cholesterol Direct 127 HDL Cholesterol 45 25-OH Vitamin D Total Folate > 20.0 TSH 3rd Generation 12/11/17 12/11/17 12/11/17 06:30 06:30 06:30 WBC 9.1 RBC 4.11 Hgb 11.7 L Hct 36.6 MCV 89.1 MCH 28.5 MCHC 32.0 RDW 15.5 H Plt Count 262 MPV 11.2 H Gran % 63.9 Lymph % (Auto) 24.9 [place] % (Auto) 6.5 H Eos % (Auto) 4.2 Baso % (Auto) 0.5 Gran # 5.84 Lymph # (Auto) 2.3 [place] # (Auto) 0.6 Eos # (Auto) 0.4 Baso # (Auto) 0.05 Sodium Potassium Chloride Carbon Dioxide Anion Gap BUN Creatinine Est GFR ( Amer) Est GFR (Non-Af Amer) POC Glucose (mg/dL) Random Glucose Calcium Phosphorus Magnesium Total Bilirubin AST ALT Alkaline Phosphatase Troponin I Total Protein Albumin Globulin Albumin/Globulin Ratio Triglycerides Cholesterol LDL Cholesterol Direct HDL Cholesterol 25-OH Vitamin D Total 28.0 L Folate TSH 3rd Generation 1.83 12/11/17 12/11/17 07:36 11:38 WBC RBC Hgb Hct MCV MCH MCHC RDW Plt Count MPV Gran % Lymph % (Auto) [place] % (Auto) Eos % (Auto) Baso % (Auto) Gran # Lymph # (Auto) [place] # (Auto) Eos # (Auto) Baso # (Auto) Sodium Potassium Chloride Carbon Dioxide Anion Gap BUN Creatinine Est GFR ( Amer) Est GFR (Non-Af Amer) POC Glucose (mg/dL) 106 158 H Random Glucose Calcium Phosphorus Magnesium Total Bilirubin AST ALT Alkaline Phosphatase Troponin I Total Protein Albumin Globulin Albumin/Globulin Ratio Triglycerides Cholesterol LDL Cholesterol Direct HDL Cholesterol 25-OH Vitamin D Total Folate TSH 3rd Generation Attending/Attestation - Attestation I have personally seen and examined this patient.: Yes I have fully participated in the care of the patient.: Yes I have reviewed all pertinent clinical information: Yes Notes (Text): 12/11/17 16:44 On my exam, the patient did not have any focal neurological deficits. She was AAOX3, speech was fluent, CN 2-12 intact, strength symmetrical, sensation intact , reflexes normal, plantar responses normal, gait was normal, Romberg was negative.
--- NOTE | 2017-12-11 05:10 | CARD ---
APPROVED REPORT Date of service: 12/10/2017 EKG Measurement Heart [id number] CT [id number] <Conclusion> Sinus rhythm with 1st degree AV block Right bundle branch block Abnormal ECG
[2017-12-11 07:31] LABS: BASO # 0.05 K/mm3 (0.0-2.0); BASO % 0.5 % (0.0-3.0); EOS # 0.4 (0.0-0.7); EOS % 4.2 % (1.5-5.0); GRAN # 5.84 (1.4-6.5); GRAN % 63.9 % (50.0-68.0); HEMOGLOBIN 11.7 g/dL (12.0-16.0); LYMPH # 2.3 (1.2-3.4); LYMPH % 24.9 % (22.0-35.0); MEAN CELL VOLUME 89.1 fl (80.0-105.0); MEAN CORPUSCULAR HEMOGLOBIN 28.5 pg (25.0-35.0); MEAN PLATELET VOLUME 11.2 fl (7.0-11.0); MONO # 0.6 (0.1-0.6); MONO % 6.5 % (1.0-6.0); RBC 4.11 10^6/uL (3.5-6.1); RED CELL DISTRIBUTION WIDTH 15.5 % (11.5-14.5); WHITE BLOOD COUNT 9.1 10^3/ul (4.5-11.0)
[2017-12-11 07:50] LABS: ALB/GLOB RATIO 1.2 (1.1-1.8); ALBUMIN 3.7 g/dL (3.0-4.8); ALT/SGPT 28 U/L (7-56); AST/SGOT 30 U/L (14-36); BLOOD UREA NITROGEN 15 mg/dL (7-21); CALCIUM 9.1 mg/dL (8.4-10.5); GFR NON-AFRICAN AMERICAN > 60; HDL CHOLESTEROL 45 mg/dL (29-60)
[2017-12-11 07:53] LABS: LDL CHOLESTEROL 127 mg/dL (0-129)
[2017-12-11] MEDS: Enoxaparin 40 mg Syringe SC SCH (10:04)
[2017-12-11] MEDS: Aritificial Tears (15ml) OU SCH ×3 (10:05→17:36)
[2017-12-11] MEDS ORDERED: Iohexol 350 MG/100 ML VIAL ONE (12:55)
[2017-12-11 15:42] LABS: FOLATE > 20.0 ng/mL
--- NOTE | 2017-12-11 15:45 | CP.PCM.PN ---
<Royal Alexander - Last Filed: 12/11/17 16:11> Subjective - Date & Time of Evaluation Date of Evaluation: 12/11/17 Time of Evaluation: 11:55 - Subjective Subjective: Royal Alexander DO PGY-1, Admissions Counselor Medicine Progress Note Pt seen and examined at bedside. Observed eating lunch without concerns. States that she presented with this new-onset blurry vision b/l since yesterday at home , usually is able to see clearly at home and only uses prescription glasses for reading. Reports her last fall prior to the one she is currently admitted for was 1 year prior. Pt states she was able to call the ambulance after her fall using her LifeAlert. Otherwise denies any acute complaints. Denies headache, dizziness, chest pain, shortness of breath, n/v/d/c, abd pain, urinary complaints, muscle weakness, or other symptoms currently. Pt had elevated blood pressures overnight, which improved s/p 10 mg IVP. Objective - Vital Signs/Intake and Output Vital Signs (last 24 hours): Temp Pulse Resp BP Pulse Ox 97.7 F 90 19 186/92 H 72 L 12/11/17 12:00 12/11/17 12:00 12/11/17 12:00 12/11/17 12:00 12/11/17 05:35 Intake and Output: 12/11/17 12/11/17 06:59 18:59 Intake Total 240 Output Total 500 Balance -260 - Medications Medications: Current Medications Artificial Tears (Artificial Tears) 0 ml OU TID [facility] Last Admin: 12/11/17 13:51 Dose: 1 drop Aspirin (Aspirin Chewable) 81 mg PO DAILY [facility] Last Admin: 12/11/17 10:05 Dose: 81 mg Atorvastatin Calcium (Lipitor) 10 mg PO DIN [facility] Last Admin: 12/10/17 22:07 Dose: 10 mg Donepezil HCl (Aricept) 5 mg PO HS [facility] Last Admin: 12/10/17 22:07 Dose: 5 mg Enoxaparin Sodium (Lovenox) 40 mg SC DAILY [facility] PRN Reason: Protocol Last Admin: 12/11/17 10:04 Dose: 40 mg Lisinopril (Zestril) 5 mg PO DAILY [facility] Last Admin: 12/11/17 10:04 Dose: 5 mg - Labs Labs: 12/11/17 06:30 12/11/17 06:30 - Constitutional Appears: Non-toxic, No Acute Distress - Head Exam Head Exam: ATRAUMATIC, NORMAL INSPECTION - Eye Exam Eye Exam: EOMI, Normal appearance, PERRL - ENT Exam ENT Exam: Mucous Membranes Moist, Normal Exam - Respiratory Exam Respiratory Exam: Clear to Ausculation Bilateral, NORMAL BREATHING PATTERN - Cardiovascular Exam Cardiovascular Exam: REGULAR RHYTHM, +S1, +S2. absent: Gallop, Rubs, Murmur - GI/Abdominal Exam GI & Abdominal Exam: Soft, Normal Bowel Sounds. absent: Distended, Tenderness, Organomegaly, Rebound - Extremities Exam Extremities Exam: Full ROM, Normal Capillary Refill, Normal Inspection. absent : Pedal Edema - Neurological Exam Neurological Exam: Alert, Awake, Oriented x3 Additional comments: Has R-sided residual weakness at baseline, no new focal deficits - Psychiatric Exam Psychiatric exam: Normal Affect, Normal Mood - Skin Skin Exam: Dry, Intact, Normal Color, Warm Assessment and Plan - Assessment and Plan (Free Text) Assessment: 82 y o female PMHx CVA with residual R-sided weakness, DM2, CHF, HTN, DJD, COPD , CAD s/p 3 stents, anxiety, R knee replacement, lung cancer s/p chemo and radiation, who presented on 12/10/17 to the ED after a syncopal episode. Head CT w/o contrast demonstrated severe chronic microvascular changes in periventricular and deep white matter, with no acute findings. Maxillofacial CT unremarkable. Brain MRI and CTA Head/Neck ordered, will follow-up results. Neurology (Dr. Huntley) and Cardiology (Dr. Sands) consulted. Plan: Syncope/new-onset blurry vision -Suspected neurocardiogenic in etiology, f/u imaging to r/o vascular cause due to new-onset blurriness on presentation -ASA 81 mg PO daily -Home buproprion and alprazolam held on admission -Tolerating PO diet (dysphagia/modified consistency diet), IVF d/c'd -F/u MRI brain and CTA head/neck results -Hx EEG in past which failed to show any epileptiform activity as per chart -Lipid panel, TSH wnl -Hgb A1c pending -Vit D low, Folate wnl, B12 pending -Pt with R eye blindness and hx of R eye surgery 2/2 complications from measles in childhood -Orthostatics -Neurology, cardiology consulted, recs appreciated Hx dementia -Donepezil 5 mg PO daily Hx CVA w/ residual R-sided weakness -ASA 81 mg daily -Lipitor 10 mg PO hs Hx CAD s/p 3 stents/CHF -Cardiology consulted, recs appreciated -ASA 81 mg daily -Lipitor 10 mg PO hs -BNP wnl on admission -EKG on admission: 1st degree AV block with RBBB unchanged from prior EKGs Hx DM2 -Not on home meds currently -Accucheck achs Hx HTN -Pt restarted on home med of Lisinopril 5 mg PO daily -Continue to trend bps Hx Degenerative Joint Disease -S/p R knee replacement -F/u PT recs DVT ppx: SCDs, Lovenox 40 sc qd Pt seen, examined with, and plan discussed with Dr. Osorio, attending. <Mali Osorio - Last Filed: 12/11/17 21:33> Objective - Vital Signs/Intake and Output Vital Signs (last 24 hours): Temp Pulse Resp BP Pulse Ox 98.4 F 88 20 143/76 98 12/11/17 18:00 12/11/17 18:00 12/11/17 18:00 12/11/17 18:00 12/11/17 18:00 - Medications Medications: Current Medications Artificial Tears (Artificial Tears) 0 ml OU TID [facility] Last Admin: 12/11/17 17:36 Dose: 1 drop Aspirin (Aspirin Chewable) 81 mg PO DAILY [facility] Last Admin: 12/11/17 10:05 Dose: 81 mg Atorvastatin Calcium (Lipitor) 10 mg PO DIN [facility] Last Admin: 12/11/17 17:36 Dose: 10 mg Donepezil HCl (Aricept) 5 mg PO HS [facility] Last Admin: 12/10/17 22:07 Dose: 5 mg Enoxaparin Sodium (Lovenox) 40 mg SC DAILY [facility] PRN Reason: Protocol Last Admin: 12/11/17 10:04 Dose: 40 mg Lisinopril (Zestril) 5 mg PO DAILY [facility] Last Admin: 12/11/17 10:04 Dose: 5 mg Attending/Attestation - Attestation I have personally seen and examined this patient.: Yes I have fully participated in the care of the patient.: Yes I have reviewed all pertinent clinical information, including history, physical exam and plan: Yes Notes (Text): 12/11/17 21:31 Patient seen and examined at bedside. Vitals, labs, notes and consultations noted. Agree with the plan of care as discussed and outlined by the resident.
--- NOTE | 2017-12-11 16:02 | MRI ---
Date of service: 12/11/2017 PROCEDURE: MRI BRAIN WITHOUT CONTRAST HISTORY: Syncope COMPARISON: Comparison made with CT scan and CTA brain dated 12/10/2017 and 12/11/2017 respectively. TECHNIQUE: Multiplanar, multisequence MR images of the brain were obtained without intravenous contrast enhancement. FINDINGS: HEMORRHAGE: No acute parenchymal, subarachnoid or extra-axial hemorrhage. No evidence of hemosiderin deposition identified on gradient echo weighted sequence. DWI: No evidence of an acute or early subacute infarction. BRAIN PARENCHYMA: Re- demonstrated are significant diffuse confluent chronic white matter ischemic changes that extend peripherally into the deep and subcortical white matter both cerebral hemispheres. . There is also some extension of these changes into white matter tracts of both basal nuclei. Multiple more discrete chronic appearing bilateral basal nuclei deep and subcortical white matter ischemic changes are also present. Moderate generalized volume loss. VENTRICLES: No obstructive hydrocephalus CRANIUM: Unremarkable. ORBITS: Changes of bilateral cataract surgery again noted. . Grossly unremarkable. PARANASAL SINUSES/MASTOIDS: Clear VASCULAR SYSTEM: Visualized major vascular flow voids at skull base patent. OTHER FINDINGS: None. IMPRESSION: No acute intracranial hemorrhage or infarction. Extensive chronic white matter as well as loss of bilateral basal nuclei ischemic changes. Moderate generalized volume loss.
--- NOTE | 2017-12-11 23:18 | CON ---
Copied To: Norbert Sands MD Attending MD: Norbert Sands MD DATE: 12/11/2017 REASON FOR CONSULTATION: Syncopal episode. HISTORY OF PRESENT ILLNESS: The patient is an 82-year-old female who lives with her son has a history of congestive heart failure, hypertension, hyperlipidemia, history of acute CVA, history of two strokes in the past, history of lung CA, on chemotherapy and history of three coronary stenting in the past according to the patient. She presented because of a syncopal episode. The patient stated that she was in a bathroom and she collapsed on the floor but she does not know how she went on the floor. The patient was calling her son who was sleeping and could not see her so she has to activate a lifesaver pendent that she was wearing and EMS came. The patient denies any similar recent episode of falling. The patient denies any chest pain at this time or shortness of breath. SOCIAL HISTORY: The patient is a nonsmoker, nondrinker. She lives with her son. MEDICATIONS: Aricept 5 mg once a day, aspirin 81 mg once a day, Lipitor 10 mg once a day, Lovenox 40 mg subcutaneously once a day, Zestril 5 mg once a day. REVIEW OF SYSTEMS: No nausea or vomiting. No fever or chills. No retrosternal chest pain. PHYSICAL EXAMINATION: GENERAL: The patient is an elderly female who does not appear to be in acute distress. VITAL SIGNS: Blood pressure 169/86, heart rate 72, temperature 98.3, respirations 20. HEENT: Normocephalic. CHEST: Clear. HEART: S1, S2 regular. ABDOMEN: Soft. EXTREMITIES: No edema. LABORATORY DATA: Hemoglobin and hematocrit 11.7 and 36.6, white count 9.1, platelet count 162,000. Today SMA-7 is entirely within normal limits. TSH level is within normal limits. Lipid profile is within normal limits except for total cholesterol of 201. Magnesium level is within normal limits. EKG revealed sinus rhythm with first-degree AV block, right bundle-branch block. Echocardiogram study performed in 04/2016 revealed normal left ventricular size, wall thickness and ejection fraction with [id number] mitral insufficiency. Head CT scan without contrast, severe chronic microvascular changes in the periventricular and deep white matter, no acute findings. Maxillofacial CT scan unremarkable, noncontrast enhanced CT scan of the maxillofacial bone. Brain MRI was performed; however, the report is still pending. ASSESSMENT: 1. Syncopal episode. 2. History of cerebrovascular accident in the past according to the patient. 3. Coronary artery disease with history of coronary stenting in the past. 4. Hypertension and hyperlipidemia. 5. Abnormal electrocardiogram with evidence of right bundle-branch block. 5. [id number] mitral insufficiency noted on last year's echo. RECOMMENDATIONS: Continue current aspirin 81 mg once a day, Lipitor 10 mg once a day, Lovenox 40 mg subcutaneous once a day, Zestril at 5 mg once a day. I will follow up brain MRI report, carotid Doppler and continue Telemetry monitoring. Norbert Sands MD
[2017-12-12 06:07] LABS: URINE BILIRUBIN NEGATIVE (NEGATIVE); URINE BLOOD NEGATIVE (NEGATIVE); URINE GLUCOSE (UA) NEGATIVE (NEGATIVE); URINE LEUKOCYTE ESTERASE NEGATIVE Leu/uL (NEGATIVE); URINE PROTEIN NEGATIVE mg/dL (<30 mg/dL)
[2017-12-12 06:11] LABS: URINE APPEARANCE CLEAR (CLEAR); URINE COLOR YELLOW (YELLOW)
[2017-12-12 07:23] LABS: BASO # 0.02 K/mm3 (0.0-2.0); BASO % 0.3 % (0.0-3.0); EOS # 0.3 (0.0-0.7); EOS % 3.2 % (1.5-5.0); GRAN # 5.05 (1.4-6.5); GRAN % 64.7 % (50.0-68.0); LYMPH # 1.9 (1.2-3.4); LYMPH % 24.2 % (22.0-35.0); MEAN CELL VOLUME 88.8 fl (80.0-105.0); MEAN CORPUSCULAR HEMOGLOBIN 28.5 pg (25.0-35.0); MEAN CORPUSCULAR HGB CONC 32.1 g/dl (31.0-37.0); MEAN PLATELET VOLUME 11.2 fl (7.0-11.0); MONO # 0.6 (0.1-0.6); MONO % 7.6 % (1.0-6.0); RBC 4.21 10^6/uL (3.5-6.1); WHITE BLOOD COUNT 7.8 10^3/ul (4.5-11.0)
[2017-12-12 07:35] LABS: ALB/GLOB RATIO 1.4 (1.1-1.8); ALBUMIN 3.7 g/dL (3.0-4.8); ALT/SGPT 28 U/L (7-56); AST/SGOT 23 U/L (14-36); BLOOD UREA NITROGEN 16 mg/dL (7-21); CALCIUM 9.4 mg/dL (8.4-10.5); GFR NON-AFRICAN AMERICAN > 60
[2017-12-12] MEDS: Enoxaparin 40 mg Syringe SC SCH (09:52)
[2017-12-12] MEDS: Aritificial Tears (15ml) OU SCH ×3 (09:52→17:51)
[2017-12-12 13:28] VITALS: RESP 18
[2017-12-12] MEDS ORDERED: Albuterol-Ipratrop 3 mg / 0.5 (3 ml) UD IH PRN (14:30)
--- NOTE | 2017-12-12 19:00 | CP.PCM.DIS ---
<Royal Alexander - Last Filed: 12/12/17 18:53> Provider - Provider Date of Admission: 12/11/17 20:37 Attending physician: Jayde Giordano DO Primary care physician: Dr. Ley Consults: Neurology - Dr. Huntley Cardiology - Dr. Sands Time Spent in preparation of Discharge (in minutes): 45 Hospital Course - Lab Results Lab Results: Most Recent Lab Values WBC 7.8 10^3/ul (4.5-11.0) 12/12/17 06:30 RBC 4.21 10^6/uL (3.5-6.1) 12/12/17 06:30 Hgb 12.0 g/dL (12.0-16.0) 12/12/17 06:30 Hct 37.4 % (36.0-48.0) 12/12/17 06:30 MCV 88.8 fl (80.0-105.0) 12/12/17 06:30 MCH 28.5 pg (25.0-35.0) 12/12/17 06:30 MCHC 32.1 g/dl (31.0-37.0) 12/12/17 06:30 RDW 16.0 % (11.5-14.5) H 12/12/17 06:30 Plt Count 266 10^3/uL (120.0-450.0) 12/12/17 06:30 MPV 11.2 fl (7.0-11.0) H 12/12/17 06:30 Gran % 64.7 % (50.0-68.0) 12/12/17 06:30 Lymph % (Auto) 24.2 % (22.0-35.0) 12/12/17 06:30 Tompkins % (Auto) 7.6 % (1.0-6.0) H 12/12/17 06:30 Eos % (Auto) 3.2 % (1.5-5.0) 12/12/17 06:30 Baso % (Auto) 0.3 % (0.0-3.0) 12/12/17 06:30 Gran # 5.05 (1.4-6.5) 12/12/17 06:30 Lymph # (Auto) 1.9 (1.2-3.4) 12/12/17 06:30 Tompkins # (Auto) 0.6 (0.1-0.6) 12/12/17 06:30 Eos # (Auto) 0.3 (0.0-0.7) 12/12/17 06:30 Baso # (Auto) 0.02 K/mm3 (0.0-2.0) 12/12/17 06:30 Sodium 144 mmol/L (132-148) 12/12/17 06:30 Potassium 4.4 mmol/L (3.6-5.0) 12/12/17 06:30 Chloride 107 mmol/L (98-107) 12/12/17 06:30 Carbon Dioxide 28 mmol/L (21-33) 12/12/17 06:30 Anion Gap 14 (10-20) 12/12/17 06:30 BUN 16 mg/dL (7-21) 12/12/17 06:30 Creatinine 0.7 mg/dl (0.7-1.2) 12/12/17 06:30 Est GFR ( Amer) > 60 12/12/17 06:30 Est GFR (Non-Af Amer) > 60 12/12/17 06:30 POC Glucose (mg/dL) 100 mg/dL (65-110) 12/12/17 16:17 Random Glucose 103 mg/dL (70-110) 12/12/17 06:30 Hemoglobin A1c 5.9 % (4.2-6.5) 12/11/17 06:30 Calcium 9.4 mg/dL (8.4-10.5) 12/12/17 06:30 Phosphorus 3.5 mg/dL (2.5-4.5) 12/11/17 06:30 Magnesium 1.9 mg/dL (1.7-2.2) 12/11/17 06:30 Total Bilirubin 0.5 mg/dL (0.2-1.3) 12/12/17 06:30 AST 23 U/L (14-36) 12/12/17 06:30 ALT 28 U/L (7-56) 12/12/17 06:30 Alkaline Phosphatase 131 U/L (38-126) H 12/12/17 06:30 Total Creatine Kinase 171 U/L (35-230) 12/10/17 13:30 Troponin I < 0.01 ng/mL 12/10/17 19:25 NT-Pro-B Natriuret Pep 608 pg/mL (0-450) H 12/10/17 13:30 Total Protein 6.5 g/dL (5.8-8.3) 12/12/17 06:30 Albumin 3.7 g/dL (3.0-4.8) 12/12/17 06:30 Globulin 2.7 gm/dL 12/12/17 06:30 Albumin/Globulin Ratio 1.4 (1.1-1.8) 12/12/17 06:30 Triglycerides 105 mg/dL (35-160) 12/11/17 06:30 Cholesterol 201 mg/dL (130-200) H 12/11/17 06:30 LDL Cholesterol Direct 127 mg/dL (0-129) 12/11/17 06:30 HDL Cholesterol 45 mg/dL (29-60) 12/11/17 06:30 25-OH Vitamin D Total 28.0 NG/ML (30.0-100.0) L 12/11/17 06:30 Folate > 20.0 ng/mL 12/11/17 06:30 TSH 3rd Generation 1.83 mIU/mL (0.46-4.68) 12/11/17 06:30 Urine Color Yellow (YELLOW) 12/12/17 05:00 Urine Appearance Clear (CLEAR) 12/12/17 05:00 Urine pH 7.0 (4.7-8.0) 12/12/17 05:00 Ur Specific Pickett <= 1.005 (1.005-1.035) 12/12/17 05:00 Urine Protein Negative mg/dL (<30 mg/dL) 12/12/17 05:00 Urine Glucose (UA) Negative mg/dL (NEGATIVE) 12/12/17 05:00 Urine Ketones Negative mg/dL (NEGATIVE) 12/12/17 05:00 Urine Blood Negative (NEGATIVE) 12/12/17 05:00 Urine Nitrate Negative (NEGATIVE) 12/12/17 05:00 Urine Bilirubin Negative (NEGATIVE) 12/12/17 05:00 Urine Urobilinogen 1.0 E.U./dL (<1 E.U./dL) H 12/12/17 05:00 Ur Leukocyte Esterase Negative Apurva/uL (NEGATIVE) 12/12/17 05:00 - Hospital Course Hospital Course: Royal Alexander DO PGY-1, Fuels Engineer Medicine Discharge Summary 82 year old female with a PMHx of CVA with residual right-sided weakness, DM2, CHF, HTN, DJD, COPD, CAD s/p 3 stents, anxiety, right knee replacement, lung cancer s/p chemo and radiation who presented to the ED on 12/10/17 after a syncopal episode. Patient was eating lunch and midway thru lunch went to bathroom to have bowel movement, while having bowel movement on toilet patient syncopized and fell off toilet seat on her right side. She stated she doesn't believe she hit her head. Patient not sure how long she was out - she believes it was a very short time. She stated "the next thing I remember was I was on the floor". Patient remained on the floor due to extension toilet seat fall on her and also due to patient has residual right sided weakness from prior CVA. Additionally, patient stated she has new-onset blurriness which began around lunch time. Otherwise, denied headaches, chest pain, new focal deficits, weakness, numbness, tingling, urinary incontinence. Neurology was consulted ( Dr. Huntley) who recommended MRI brain and CTA head/neck as part of initial work- up. MRI brain demonstrated chronic changes, no acute findings to explain presentation. Cardiology was consulted (Dr. Hinojosa) who monitored pt's vitals and cardiac monitoring, and deemed her stable from cardiac standpoint, to continue with cardiac home regimen. PT came to evaluate patient, and deemed her stable for discharge home to activities of daily living. Pt was discharged to home in stable condition, with symptoms fully resolved inc blurry vision, and instructed to f/u with her PCP Dr. Ley within a week after d/c and Dr. Huntley within 1-2 weeks after discharge for results of CTA head/neck. Pt was instructed to resume home medications on discharge. Discharge Exam - Head Exam Head Exam: ATRAUMATIC, NORMAL INSPECTION - Eye Exam Eye Exam: EOMI, Normal appearance, PERRL - ENT Exam ENT Exam: Mucous Membranes Moist, Normal Oropharynx - Respiratory Exam Respiratory Exam: Clear to PA & Lateral, NORMAL BREATHING PATTERN - Cardiovascular Exam Cardiovascular Exam: REGULAR RHYTHM, +S1, +S2 - GI/Abdominal Exam GI & Abdominal Exam: Normal Bowel Sounds, Soft, Unremarkable - Extremities Exam Extremities exam: full ROM, normal capillary refill, normal inspection, pedal pulses present - Psychiatric Exam Psychiatric exam: Normal Affect, Normal Mood - Skin Skin Exam: Dry, Intact, Normal Color, Warm Discharge Plan - Follow Up Plan Condition: STABLE Disposition: HOME/ ROUTINE Instructions: Syncope (DC) Additional Instructions: Please follow-up with your primary care physician (Dr. Ley) within 1 week of discharge. Please follow-up with neurology (Dr. Huntley) within 1-2 weeks of discharge. Please resume home medications as prescribed. Should symptoms recur or worsen, please call your PCP or report to your nearest emergency department. Referrals: Norbert Sands MD [Staff Provider] - Mohan Huntley MD [Staff Provider] - Bradley Ley MD [Staff Provider] - <Mali Osorio - Last Filed: 12/12/17 22:12> Provider - Provider Date of Admission: 12/11/17 20:37 Attending physician: Jayde Giordano, Hospital Course - Lab Results Lab Results: Most Recent Lab Values WBC 7.8 10^3/ul (4.5-11.0) 12/12/17 06:30 RBC 4.21 10^6/uL (3.5-6.1) 12/12/17 06:30 Hgb 12.0 g/dL (12.0-16.0) 12/12/17 06:30 Hct 37.4 % (36.0-48.0) 12/12/17 06:30 MCV 88.8 fl (80.0-105.0) 12/12/17 06:30 MCH 28.5 pg (25.0-35.0) 12/12/17 06:30 MCHC 32.1 g/dl (31.0-37.0) 12/12/17 06:30 RDW 16.0 % (11.5-14.5) H 12/12/17 06:30 Plt Count 266 10^3/uL (120.0-450.0) 12/12/17 06:30 MPV 11.2 fl (7.0-11.0) H 12/12/17 06:30 Gran % 64.7 % (50.0-68.0) 12/12/17 06:30 Lymph % (Auto) 24.2 % (22.0-35.0) 12/12/17 06:30 Tompkins % (Auto) 7.6 % (1.0-6.0) H 12/12/17 06:30 Eos % (Auto) 3.2 % (1.5-5.0) 12/12/17 06:30 Baso % (Auto) 0.3 % (0.0-3.0) 12/12/17 06:30 Gran # 5.05 (1.4-6.5) 12/12/17 06:30 Lymph # (Auto) 1.9 (1.2-3.4) 12/12/17 06:30 Tompkins # (Auto) 0.6 (0.1-0.6) 12/12/17 06:30 Eos # (Auto) 0.3 (0.0-0.7) 12/12/17 06:30 Baso # (Auto) 0.02 K/mm3 (0.0-2.0) 12/12/17 06:30 Sodium 144 mmol/L (132-148) 12/12/17 06:30 Potassium 4.4 mmol/L (3.6-5.0) 12/12/17 06:30 Chloride 107 mmol/L (98-107) 12/12/17 06:30 Carbon Dioxide 28 mmol/L (21-33) 12/12/17 06:30 Anion Gap 14 (10-20) 12/12/17 06:30 BUN 16 mg/dL (7-21) 12/12/17 06:30 Creatinine 0.7 mg/dl (0.7-1.2) 12/12/17 06:30 Est GFR ( Amer) > 60 12/12/17 06:30 Est GFR (Non-Af Amer) > 60 12/12/17 06:30 POC Glucose (mg/dL) 100 mg/dL (65-110) 12/12/17 16:17 Random Glucose 103 mg/dL (70-110) 12/12/17 06:30 Hemoglobin A1c 5.9 % (4.2-6.5) 12/11/17 06:30 Calcium 9.4 mg/dL (8.4-10.5) 12/12/17 06:30 Phosphorus 3.5 mg/dL (2.5-4.5) 12/11/17 06:30 Magnesium 1.9 mg/dL (1.7-2.2) 12/11/17 06:30 Total Bilirubin 0.5 mg/dL (0.2-1.3) 12/12/17 06:30 AST 23 U/L (14-36) 12/12/17 06:30 ALT 28 U/L (7-56) 12/12/17 06:30 Alkaline Phosphatase 131 U/L (38-126) H 12/12/17 06:30 Total Creatine Kinase 171 U/L (35-230) 12/10/17 13:30 Troponin I < 0.01 ng/mL 12/10/17 19:25 NT-Pro-B Natriuret Pep 608 pg/mL (0-450) H 12/10/17 13:30 Total Protein 6.5 g/dL (5.8-8.3) 12/12/17 06:30 Albumin 3.7 g/dL (3.0-4.8) 12/12/17 06:30 Globulin 2.7 gm/dL 12/12/17 06:30 Albumin/Globulin Ratio 1.4 (1.1-1.8) 12/12/17 06:30 Triglycerides 105 mg/dL (35-160) 12/11/17 06:30 Cholesterol 201 mg/dL (130-200) H 12/11/17 06:30 LDL Cholesterol Direct 127 mg/dL (0-129) 12/11/17 06:30 HDL Cholesterol 45 mg/dL (29-60) 12/11/17 06:30 25-OH Vitamin D Total 28.0 NG/ML (30.0-100.0) L 12/11/17 06:30 Folate > 20.0 ng/mL 12/11/17 06:30 TSH 3rd Generation 1.83 mIU/mL (0.46-4.68) 12/11/17 06:30 Urine Color Yellow (YELLOW) 12/12/17 05:00 Urine Appearance Clear (CLEAR) 12/12/17 05:00 Urine pH 7.0 (4.7-8.0) 12/12/17 05:00 Ur Specific Pickett <= 1.005 (1.005-1.035) 12/12/17 05:00 Urine Protein Negative mg/dL (<30 mg/dL) 12/12/17 05:00 Urine Glucose (UA) Negative mg/dL (NEGATIVE) 12/12/17 05:00 Urine Ketones Negative mg/dL (NEGATIVE) 12/12/17 05:00 Urine Blood Negative (NEGATIVE) 12/12/17 05:00 Urine Nitrate Negative (NEGATIVE) 12/12/17 05:00 Urine Bilirubin Negative (NEGATIVE) 12/12/17 05:00 Urine Urobilinogen 1.0 E.U./dL (<1 E.U./dL) H 12/12/17 05:00 Ur Leukocyte Esterase Negative Apurva/uL (NEGATIVE) 12/12/17 05:00 Attending/Attestation - Attestation I have personally seen and examined this patient.: Yes I have fully participated in the care of the patient.: Yes I have reviewed all pertinent clinical information, including history, physical exam and plan: Yes Notes (Text): 12/12/17 22:11 Patient seen and examined at bedside. Labs, vitals, and notes reviewed. Agree with the discharge and follow up plan as discussed and outlined by the resident.
[2017-12-12 19:25] VITALS: BP 139/52; PULSE 79; TEMP 97.8; O2SAT 95
--- NOTE | 2017-12-13 04:42 | PN ---
Copied To: Norbert Sands MD Attending MD: Norbert Sands MD DATE: 12/12/2017 SUBJECTIVE: The patient had a short run of rapid atrial fibrillation that lasted less than 2 seconds. The patient was asymptomatic. PHYSICAL EXAMINATION: VITAL SIGNS: Blood pressure 147/86, heart rate 74, temperature 97.8, respirations 20. HEENT: Normocephalic. CHEST: Clear. HEART: S1 and S2 regular. EXTREMITIES: Trace leg edema. LABORATORY DATA: Today's hemoglobin, hematocrit, white count and platelet count are within normal limit. Today's SMA-7 is entirely within normal limit. ASSESSMENT: 1. Syncopal episode. 2. History of cerebrovascular accident in the past. 3. History of coronary artery disease. 4. History of hyperlipidemia. 5. Abnormal electrocardiogram with evidence of right bundle-branch block. RECOMMENDATIONS: I did review the plain MRI result, which revealed no acute intracranial hemorrhage or infarct, there was extensive white matter volume loss and bilateral basal ganglia ischemic changes. Continue current Aricept 5 mg once a day, aspirin 81 mg once a day, Lipitor 10 mg once a day, Lovenox 40 mg subcutaneously daily, Zestril 5 mg once a day. I will follow head and neck CT angio results. Long-term anticoagulation will not be justified in this clinical scenario for the brief to second run of atrial fibrillation on the monitor unless a more sustained atrial fibrillation is documented. Norbert Sands MD
--- NOTE | 2017-12-13 20:18 | CT ---
Date of service: 12/11/2017 PROCEDURE: CT Angiography of the Brain. HISTORY: syncope COMPARISON: None available. TECHNIQUE: CT angiography of the intracranial arteries was performed. Coronal and sagittal maximum intensity projection reformated images were generated. This CT exam was performed using one or more of the following dose reduction techniques: Automated exposure control, adjustment of the mA and/or kV according to patient size, and/or use of iterative reconstruction technique. Total exam DLP 608.54 FINDINGS: RIGHT CAROTID ARTERIES: Common Carotid Artery: Normal. Carotid Bifurcation: Atherosclerotic calcification noted at the right bifurcation without evidence of significant stenosis Internal Carotid Artery:Normal. External Carotid Artery (proximal branches): Normal. LEFT CAROTID ARTERIES: Common Carotid Artery: Normal. Carotid Bifurcation: Atherosclerotic calcification at the left carotid bifurcation. Internal Carotid Artery:Short segment of moderate stenosis at the origin and proximal left internal carotid artery approximately 70 percent. External Carotid Artery (proximal branches): Normal. VERTEBRAL ARTERIES: Right Vertebral Artery: Normal. Left Vertebral Artery: Normal. INTERNAL CEREBRAL ARTERIES: Foci of atherosclerotic calcification noted at the distal internal carotid arteries. The skull base, petrous, cavernous and supraclinoid segments are bilaterally widely patent. ANTERIOR CEREBRAL ARTERIES: Unremarkable. A1 and A2 segments are widely patent. Smaller distal branches unremarkable, as visualized. MIDDLE CEREBRAL ARTERIES: Diffuse irregularity noted in the middle cerebral arteries suggestive of atherosclerotic disease. . M1 and M2 segments are widely patent. Perisylvian branches grossly symmetric. POSTERIOR CIRCULATION: Basilar Artery: Unremarkable. Distal Vertebral Arteries: Unremarkable. Posterior Cerebral Arteries: Unremarkable. Posterior Inferior Cerebellar Arteries: Unremarkable. ANEURYSM/ VASCULAR MALFORMATIONS: None. OTHER FINDINGS: None. IMPRESSION: Moderate atherosclerotic disease. Focal/Elder segment moderate approximately 70 percent stenosis noted at the origin and proximal left internal carotid artery. Diffuse irregularity noted at the middle cerebral arteries likely due to atherosclerotic disease. Foci of airspace opacities and patchy infiltrates in the visualized portion of the right upper lung. Preliminary report was submitted by [facility].
--- NOTE | 2017-12-19 11:03 | PQF ---
PROVIDER RESPONSE TEXT: Provider was unable to determine a response for this query. REVIEWER QUERY TEXT: Clarification of Clinical Diagnostic Findings Please clarify documentation or clinical relevance for the clinical / diagnostic findings or whether those are insignificant or unable to be further specified. The patient's Clinical Indicators include: Any etiology for syncopal episode? Thank you. Query created by: Rosanna Vergara on 12/14/2017 2:24 PM Electronically signed by: Jayde Giordano DO 12/19/2017 10:59 AM
--- NOTE | 2017-12-22 21:27 | PQF ---
PROVIDER RESPONSE TEXT: Provider was unable to determine a response for this query. REVIEWER QUERY TEXT: Clarification of Clinical Diagnostic Findings Please clarify documentation or clinical relevance for the clinical / diagnostic findings or whether those are insignificant or unable to be further specified. The patient's Clinical Indicators include: Any etiology found for syncope? Thank you. Query created by: Rosanna Vergara on 12/20/2017 4:00 PM Electronically signed by: Mali Osorio MD 12/22/2017 9:24 PM
== END 2017-12-12 20:48 | disposition home or self-care (01) | DRG 312 ==
LOC: ED 13:15 → ERH 15:30 → 2RSO 17:12 → OBSVTOIN 12-11 20:37
PROVIDERS: ADMIT Hospitalist; ATTEND Hospitalist
DX: R55 Syncope and collapse (principal); H33.20 Serous retinal detachment, unspecified eye; I69.351 Hemiplegia and hemiparesis following cerebral infarction affecting right dominant side; E11.9 Type 2 diabetes mellitus without complications; E78.5 Hyperlipidemia, unspecified; F41.9 Anxiety disorder, unspecified; H54.7 Unspecified visual loss; I11.0 Hypertensive heart disease with heart failure; I25.10 Atherosclerotic heart disease of native coronary artery without angina pectoris; I34.0 Nonrheumatic mitral (valve) insufficiency; I45.10 Unspecified right bundle-branch block; I48.91 Unspecified atrial fibrillation; I50.9 Heart failure, unspecified; J44.9 Chronic obstructive pulmonary disease, unspecified; K21.9 Gastro-esophageal reflux disease without esophagitis; M19.90 Unspecified osteoarthritis, unspecified site; S00.33XA Contusion of nose, initial encounter; W18.11XA Fall from or off toilet without subsequent striking against object, initial encounter; Z79.82 Long term (current) use of aspirin; Z80.1 Family history of malignant neoplasm of trachea, bronchus and lung; I44.0 Atrioventricular block, first degree; Z85.118 Personal history of other malignant neoplasm of bronchus and lung; Z90.49 Acquired absence of other specified parts of digestive tract; Z92.21 Personal history of antineoplastic chemotherapy; Z92.3 Personal history of irradiation; Z95.5 Presence of coronary angioplasty implant and graft; Z96.649 Presence of unspecified artificial hip joint; Z96.651 Presence of right artificial knee joint

== ENCOUNTER 2018-01-23 19:10 | Observation (INO) | payer MEDICARE, BC ==
[2018-01-23 19:25] VITALS: BMI 29.2
[2018-01-23 20:30] LABS: ALB/GLOB RATIO 1.3 (1.1-1.8); ALBUMIN 4.3 g/dL (3.0-4.8); ALT/SGPT 108 U/L (7-56); AST/SGOT 64 U/L (14-36); BLOOD UREA NITROGEN 15 mg/dL (7-21); CALCIUM 9.5 mg/dL (8.4-10.5); GFR NON-AFRICAN AMERICAN 60
[2018-01-23 20:39] LABS: TROPONIN I 0.02 ng/mL
[2018-01-23 20:43] LABS: BASO # 0.03 K/mm3 (0.0-2.0); BASO % 0.2 % (0.0-3.0); EOS # 0.1 (0.0-0.7); EOS % 0.6 % (1.5-5.0); GRAN # 12.93 (1.4-6.5); GRAN % 83.3 % (50.0-68.0); LYMPH # 1.8 (1.2-3.4); LYMPH % 11.3 % (22.0-35.0); MEAN CELL VOLUME 92.2 fl (80.0-105.0); MEAN CORPUSCULAR HEMOGLOBIN 29.7 pg (25.0-35.0); MEAN CORPUSCULAR HGB CONC 32.2 g/dl (31.0-37.0); MEAN PLATELET VOLUME 11.5 fl (7.0-11.0); MONO # 0.7 (0.1-0.6); MONO % 4.6 % (1.0-6.0); RBC 4.38 10^6/uL (3.5-6.1); RED CELL DISTRIBUTION WIDTH 16.4 % (11.5-14.5); WHITE BLOOD COUNT 15.5 10^3/ul (4.5-11.0)
[2018-01-23 20:49] LABS: INR 1.09; PARTIAL THROMBOPLASTIN TIME 28.8 Seconds (25.1-36.5); PROTHROMBIN TIME 12.5 SECONDS (9.4-12.5)
--- NOTE | 2018-01-23 21:19 | ED PDOC ---
Arrival/HPI - General Chief Complaint: Weakness/Neurological Deficit Time Seen by Provider: 01/23/18 19:18 Historian: Patient - History of Present Illness Narrative History of Present Illness (Text): 01/23/18 19:35 Lacy Hoff is an 82 year old female, whose past medical history includes CVA with residual right-sided weakness, diabetes, CHF, hypertension, degenerative joint disease, COPD, CAD s/p 3 stents, anxiety, and lung cancer s/p chemotherapy and radiation, who presents to the Emergency department brought in by EMS for generalized weakness. Patient states she has been feeling weak and unable to eat. Patient notes she recently had 7 teeth removed. Patient denies any fever, chills, chest pain, shortness of breath, nausea, headache, dizziness, or any other complaints. Symptom Onset: Gradual Symptom Course: Unchanged Activities at Onset: Light Context: Home Past Medical History - Provider Review Nursing Documentation Reviewed: Yes - Infectious Disease Hx of Infectious Diseases: None - Tetanus Immunization Tetanus Immunization: Unknown - Cardiac Hx Cardiac Disorders: Yes (s/p 3 stents, CAD) Hx Congestive Heart Failure: Yes Hx Hypertension: Yes - Pulmonary Hx Chronic Obstructive Pulmonary Disease (COPD): Yes - Neurological HX Cerebrovascular Accident: Yes (2 x times witrh residual R sided weakness) - HEENT Hx HEENT Disorder: Yes Hx Blind: Yes (right eye visual impairment) Other/Comment: retinal detachment - Renal Hx Renal Disorder: No - Endocrine/Metabolic Hx Diabetes Mellitus Type 2: Yes - Hematological/Oncological Hx Blood Disorders: Yes Hx Cancer: Yes (lung, with chemo therapy) - Integumentary Hx Dermatological Disorder: No - Musculoskeletal/Rheumatological Hx Arthritis: Yes (DJD) - Gastrointestinal Hx Gastrointestinal Disorders: (reflux) - Genitourinary/Gynecological Hx Reproductive Disorders: No - Psychiatric Hx Psychophysiologic Disorder: Yes Hx Anxiety: Yes Hx Depression: Yes Hx Substance Use: No - Past Surgical History Past Surgical History: Non-Contributing - Surgical History Hx Appendectomy: Yes Hx Cardiac Catheterization: Yes Hx Cholecystectomy: Yes Hx Coronary Stent: Yes (x 4) Hx Joint Replacement: Yes (right knee) Hx Orthopedic Surgery: Yes (left ankle) Other/Comment: 01/18/2018 7 teeth extraction - Anesthesia Hx Anesthesia: Yes Hx Anesthesia Reactions: No Hx Malignant Hyperthermia: No - Suicidal Assessment Feels Threatened In Home Enviroment: No Family/Social History - Physician Review Nursing Documentation Reviewed: Yes Family/Social History: Unknown Family HX Smoking Status: Smoker Currrent Status Unknown Hx Alcohol Use: No Hx Substance Use: No Hx Substance Use Treatment: No Allergies/Home Meds Allergies/Adverse Reactions: Allergies No Known Allergies Allergy (Verified 01/23/18 19:25) Home Medications: Home Meds Medication Instructions Recorded Confirmed RX: ALPRAZolam [Xanax] 0.25 mg PO BID 12/10/17 01/24/18 RX: Bupropion HCl [Wellbutrin XL] 300 mg PO DAILY 12/10/17 01/24/18 RX: Gabapentin [Neurontin] 300 mg PO BID 12/10/17 01/24/18 RX: Methylphenidate [Ritalin] 5 mg PO BID 12/10/17 01/24/18 RX: Multivitamin/Iron/Folic Acid 1 each PO DAILY 12/10/17 01/24/18 [Certavite-Antioxidant Tablet] Review of Systems - Physician Review All systems were reviewed & negative as marked: Yes - Review of Systems Constitutional: Other (+generalized weakness) Eyes: Normal ENT: Normal Respiratory: Normal. absent: SOB, Cough Cardiovascular: Normal. absent: Chest Pain Gastrointestinal: Appetite Changes (+decreased appetite) Genitourinary Female: Normal. absent: Dysuria, Frequency, Hematuria, Urine Output Changes Musculoskeletal: Normal. absent: Back Pain, Neck Pain Skin: Normal. absent: Rash Neurological: Normal. absent: Headache, Dizziness Endocrine: Normal Hemo/Lymphatic: Normal Psychiatric: Normal Physical Exam Vital Signs Reviewed: Yes Vital Signs Temp Pulse Resp BP Pulse Ox 01/23/18 19:11 97.6 F 61 18 151/87 H 98 Temperature: Afebrile Blood Pressure: Hypertensive Pulse: Regular Respiratory Rate: Normal Appearance: Positive for: Well-Appearing, Non-Toxic, Comfortable Pain Distress: None Mental Status: Positive for: Alert and Oriented X 3 - Systems Exam Head: Present: Atraumatic, Normocephalic Pupils: Present: PERRL Extroacular Muscles: Present: EOMI Conjunctiva: Present: Normal Mouth: Present: Moist Mucous Membranes, Other (Stitches in mouth from recent teeth removal) Neck: Present: Normal Range of Motion Respiratory/Chest: Present: Clear to Auscultation, Good Air Exchange. No: Respiratory Distress, Accessory Muscle Use Cardiovascular: Present: Regular Rate and Rhythm, Normal S1, S2. No: Murmurs Abdomen: No: Tenderness, Distention, Peritoneal Signs Back: Present: Normal Inspection Upper Extremity: Present: Normal Inspection. No: Cyanosis, Edema Lower Extremity: Present: Normal Inspection. No: Edema Neurological: Present: GCS=15, CN II-XII Intact, Speech Normal Skin: Present: Warm, Dry, Normal Color. No: Rashes Psychiatric: Present: Alert, Oriented x 3, Normal Insight, Normal Concentration Medical Decision Making ED Course and Treatment: 01/23/18 19:35 Impression: 82 year old female complaining of generalized weakness and decreased appetite. Plan: -- EKG -- CXR -- Labs, troponin, blood cultures -- Urinalysis -- Reassess and disposition Prior Visits: Notes and results from previous visits were reviewed. On 12/10/2017, patient was seen in the Emergency department s/p syncopal episode. Pt was admitted to the hospital for further evaluation. Progress Notes: Reviewed EKG, sinus bradycardia at 59 bpm. Sinus arrhythmia. 1st degree AV block. RBBB. Non-specific ST/T wave changes. 01/23/18 21:58 Chest X-ray reviewed, shows no acute processes. 01/24/18 00:[address] Hudson, who is aware and agrees with plan. Accepts pt in to his service. Pt will go to [facility] observation for dehydration. - Lab Interpretations Lab Results: 01/23/18 19:50 01/23/18 19:50 Lab Results 01/23/18 19:50: PT 12.5, INR 1.09, APTT 28.8 01/23/18 19:50: WBC 15.5 H D, RBC 4.38, Hgb 13.0, Hct 40.4, MCV 92.2 D, MCH 29.7, MCHC 32.2, RDW 16.4 H, Plt Count 277, MPV 11.5 H, Gran % 83.3 H, Lymph % (Auto) 11.3 L, Lares % (Auto) 4.6, Eos % (Auto) 0.6 L, Baso % (Auto) 0.2, Gran # 12.93 H, Lymph # (Auto) 1.8, Lares # (Auto) 0.7 H, Eos # (Auto) 0.1, Baso # (Auto) 0.03 01/23/18 19:50: Sodium 141, Potassium 3.9, Chloride 103, Carbon Dioxide 26, Anion Gap 16, BUN 15, Creatinine 0.9, Est GFR ( Amer) > 60, Est GFR (Non- Af Amer) 60, Random Glucose 110, Calcium 9.5, Total Bilirubin 0.5, AST 64 H D, ALT 108 H, Alkaline Phosphatase 219 H D, Troponin I 0.02 D, Total Protein 7.6, Albumin 4.3, Globulin 3.3, Albumin/Globulin Ratio 1.3 01/23/18 19:20: POC Glucose (mg/dL) 110 I have reviewed the lab results: Yes - RAD Interpretation Radiology Orders: 01/23/18 19:40 CHEST PORTABLE [RAD] Stat 01/23/18 20:41 ABD & PELVIS W/O PO OR IV CONT [CT] Stat Pin Or Clip Fastener: ED Physician - EKG Interpretation Interpreted by ED Physician: Yes Type: 12 lead EKG - Scribe Statement The provider has reviewed the documentation as recorded by the Scribe Provider Attestation: Randa Short Provider Scribe Attestation: All medical record entries made by the Scribe were at my direction and personally dictated by me. I have reviewed the chart and agree that the record accurately reflects my personal performance of the history, physical exam, medical decision making, and the department course for this patient. I have also personally directed, reviewed, and agree with the discharge instructions and disposition. Disposition/Present on Arrival - Present on Arrival Any Indicators Present on Arrival: No History of DVT/PE: No History of Uncontrolled Diabetes: No Urinary Catheter: No History of Decub. Ulcer: No History Surgical Site Infection Following: None - Disposition Have Diagnosis and Disposition been Completed?: Yes Diagnosis: Weakness, Dehydration Disposition: HOSPITALIZED Disposition Time: 01:10 Condition: FAIR
[2018-01-23] MEDS ORDERED: TraMADol/Apap 37.5/325 mg Tab PO STA (22:56)
[2018-01-24] MEDS ORDERED: cefTRIAXone 1 gm 1 GM/100 ML BAG IVPB STA (00:05)
[2018-01-24] MEDS ORDERED: Sodium Chloride 0.9% 1,000 ML IV SCH (00:15)
[2018-01-24] MEDS ORDERED: Sodium Chloride 0.9% 1,000 ML IV STA (01:00)
[2018-01-24 01:48] LABS: URINE BILIRUBIN MODERATE (NEGATIVE); URINE BLOOD NEGATIVE (NEGATIVE); URINE GLUCOSE (UA) NEGATIVE (NEGATIVE); URINE LEUKOCYTE ESTERASE NEGATIVE Leu/uL (NEGATIVE); URINE PROTEIN 100 mg/dL (<30 mg/dL)
[2018-01-24 01:52] LABS: URINE COLOR YELLOW (YELLOW)
[2018-01-24 01:53] LABS: URINE APPEARANCE CLEAR (CLEAR)
[2018-01-24 02:01] LABS: URINE BACTERIA FEW (NEG); URINE RBC 0 - 2 /hpf (0-2)
[2018-01-24] MEDS: Multivitamin With Minerals Tab PO SCH (09:43)
[2018-01-24] MEDS: buPROPion 300 mg/24 Hours XL Tab PO SCH (09:44)
--- NOTE | 2018-01-24 09:51 | RAD ---
Date of service: 01/23/2018 HISTORY: weakness COMPARISON: 12/10/2017 FINDINGS: LUNGS: There is a small nodular density in the right lung apex that was not visible on the previous study. Follow-up may be indicated. There is some linear scarring in the right upper lobe that is unchanged PLEURA: No significant pleural effusion identified, no pneumothorax apparent. CARDIOVASCULAR: Normal. OSSEOUS STRUCTURES: No significant abnormalities. VISUALIZED UPPER ABDOMEN: Normal. OTHER FINDINGS: None. IMPRESSION: There is a small nodular density in the right lung apex that was not visible on the previous study. Follow-up may be indicated. There is some linear scarring in the right upper lobe that is unchanged
[2018-01-24 10:53] LABS: BASO # 0.04 K/mm3 (0.0-2.0); BASO % 0.4 % (0.0-3.0); EOS # 0.2 (0.0-0.7); EOS % 2.3 % (1.5-5.0); GRAN # 5.87 (1.4-6.5); GRAN % 61.8 % (50.0-68.0); HEMOGLOBIN 12.7 g/dL (12.0-16.0); LYMPH # 2.8 (1.2-3.4); LYMPH % 29.6 % (22.0-35.0); MEAN CELL VOLUME 91.9 fl (80.0-105.0); MEAN CORPUSCULAR HEMOGLOBIN 29.4 pg (25.0-35.0); MEAN PLATELET VOLUME 11.4 fl (7.0-11.0); MONO # 0.6 (0.1-0.6); MONO % 5.9 % (1.0-6.0); RBC 4.32 10^6/uL (3.5-6.1); RED CELL DISTRIBUTION WIDTH 16.4 % (11.5-14.5); WHITE BLOOD COUNT 9.5 10^3/ul (4.5-11.0)
--- NOTE | 2018-01-24 11:10 | CARD ---
APPROVED REPORT Date of service: 01/23/2018 EKG Measurement Heart [id number] <Conclusion> Sinus bradycardia with sinus arrhythmia with 1st degree AV block Possible Left atrial enlargement Right bundle branch block Non Specific ST_T Changes. Abnormal ECG
[2018-01-24] MEDS: Albuterol-Ipratrop 3 mg / 0.5 (3 ml) UD IH SCH ×2 (14:15→20:09)
[2018-01-24 16:33] VITALS: TEMP 97.6
--- NOTE | 2018-01-24 20:58 | HP ---
HISTORY OF PRESENT ILLNESS: An 82-year-old white female with a history of degenerative arthritis, hip replacement, knee replacement, mild dementia, hypertension and hyperlipidemia. The patient obesity. The patient in the last 3 or 4 days had seven tooth extractions done with the oral surgeon, Dr. Almendarez in [place], particularly in the lower jaw. The patient developed inability to eat or drink, became slight dehydrated, has low-grade fevers and severe mouth swelling and pain, unable to eat, came to emergency room this afternoon with elevated white count of 15,000 with a left shift, low-grade fever, hypertension 186/90. She was admitted to hospital for hydration, IV antibiotics and local mouth care. REVIEW OF SYSTEMS: Remarkable only for chills, fever and weakness, pain in the mouth and difficulty swallowing. The patient denies any chest pain, shortness of breath, palpitation. The patient denies any headache, nausea and vomiting. The patient denies any diarrhea, abdominal pain, etc. The patient denies any shortness of breath or cough. ALLERGIES: THE PATIENT HAS NO ALLERGIES. SOCIAL HISTORY: She is a nonsmoker, nondrinker and no illicit drug use. FAMILY HISTORY: Unremarkable. No childhood history. SURGICAL HISTORY: Only for joint replacement. PHYSICAL EXAMINATION: GENERAL: Shows a well-developed, but slightly obese white female in mild distress. HEENT: Essentially within normal limits. HEART: Regular sinus rhythm. No S3 or murmurs. CHEST: Clear to auscultation. ABDOMEN: Obese, but benign. No hepatosplenomegaly. Bowel sounds are normoactive. No masses palpable. EXTREMITIES: No cyanosis, clubbing, or edema. There is a swelling of the gums particularly in lower jaws anteriorly with sutures in place. There is no purulent drainage. There is erythema and swelling and there is no neck adenopathy or submandibular adenopathy. IMPRESSION: Floor of the mouth infection from recent tooth extraction, mild dehydration, possible oral asepsis with elevated white count. Isauro Hudson MD
[2018-01-25] MEDS: Albuterol-Ipratrop 3 mg / 0.5 (3 ml) UD IH SCH ×2 (01:48→08:47)
[2018-01-25 07:33] VITALS: BP 141/67; PULSE 67; RESP 20; O2SAT 95
[2018-01-25] MEDS: buPROPion 300 mg/24 Hours XL Tab PO SCH (10:38)
[2018-01-25] MEDS: Multivitamin With Minerals Tab PO SCH (10:38)
--- NOTE | 2018-01-26 04:44 | DS ---
HISTORY OF PRESENT ILLNESS: This is an 82-year-old white female admitted to the hospital in observation for treatment of possible inability to swallow, infected mouth from oral surgery and elevated white count. The patient's white count has dropped from 15 to 9.5. She is afebrile today, vital signs are stable. She is complaining of some pain in the upper jaw, there is some less swelling, less erythema without discharge in the surgically removed teeth from the lower jaw. The patient is otherwise stable, we were able to contact her oral surgeon yesterday, he will see her today to remove the sutures from her lower jaw. She will be discharged home with antibiotics, to follow as an outpatient. FINAL DISCHARGE DIAGNOSES: Floor of the mouth infection, mild dehydration, elevated white count, history of degenerative joint disease, and hypertension. PLAN: Home and p.o. antibiotics and followup with oral surgeon and followup with us as an outpatient. Isauro Hudson MD
== END 2018-01-25 13:03 | disposition home or self-care (01) ==
LOC: ED 19:10 → ERH 01-24 00:59 → 3RNO 01-24 03:53
PROVIDERS: ADMIT Internal Medicine; ATTEND Internal Medicine
DX: E86.0 Dehydration (principal); E11.9 Type 2 diabetes mellitus without complications; I11.0 Hypertensive heart disease with heart failure; I50.9 Heart failure, unspecified; I69.351 Hemiplegia and hemiparesis following cerebral infarction affecting right dominant side; I25.10 Atherosclerotic heart disease of native coronary artery without angina pectoris; J44.9 Chronic obstructive pulmonary disease, unspecified; M19.90 Unspecified osteoarthritis, unspecified site; H54.61 Unqualified visual loss, right eye, normal vision left eye; K21.9 Gastro-esophageal reflux disease without esophagitis; E78.5 Hyperlipidemia, unspecified; F41.9 Anxiety disorder, unspecified; F03.90 Unspecified dementia, unspecified severity, without behavioral disturbance, psychotic disturbance, mood disturbance, and anxiety; Z85.118 Personal history of other malignant neoplasm of bronchus and lung; Z95.5 Presence of coronary angioplasty implant and graft; Z92.21 Personal history of antineoplastic chemotherapy; Z92.3 Personal history of irradiation; Z96.649 Presence of unspecified artificial hip joint; Z96.659 Presence of unspecified artificial knee joint
CPT/HCPCS: 36415; 71045; 80053; 81001; 82948; 84484; 85025; 85610; 85730; 87040; 93005; 94640; 94760; 99285; G0378; J0295; J0696; J1885; J7030